=== PATIENT | female | born 1945 | race Caucasian/White ===

== ENCOUNTER 2020-07-07 03:58 | Observation (INO) | payer MEDICARE, OTHER ==
[~2020-07-07] VITALS: Ht 160 cm; Wt 78.3 kg
[2020-07-07] MEDS ORDERED: inSUlin (REGULAR) HUMAN 1 UNIT/0.01 ML (CHARGE PER UNIT) SC ONE ×2 (04:15→05:30)
[2020-07-07] MEDS ORDERED: LACTATED RINGERS 1,000 ML IV ONE (04:15)
--- NOTE | 2020-07-07 04:16 | ED General ---
General Chief Complaint: General Problems/Pain Stated Complaint: PROGRESSIVE WEAKNESS Nursing Triage Note: PT ARRIVES [facility]IA [facility] FROM HOME WITH C/O PROGRESSIVE WEAKNESS. PT REPORTS PROGRESSIVE WEAKNESS FOR 4-5 MONTHS WITH INCREASE IN SEVERITY WITHIN PAST 3-4 DAYS. PT REPORTS AFTER USING THE RESTROOM ON THIS DAY, SHE WAS UNABLE TO TAKE A STEP D/T HER KNEES GIVING OUT ET FELL TO HER KNEES. PT STATES, "MY CAN'T TAKE CARE OF ME." PT DENIES PAIN OR INJURY. A&OX4. Nursing Sepsis Screen: No Definite Risk Source of Information: Patient Exam Limitations: No Limitations History of Present Illness Date Seen by Provider: Jul 07, 2020 Time Seen by Provider: 03:56 Initial Comments Patient presents ER by EMS from home with chief complaint that for the past 3 or 4 days she has had progressively worsening weakness and states that she can no longer walk more than a few steps without falling to her knees. She says she has a little bit of achiness all over her body but no significant new pains. She does use hydrocodone routinely for pain half a tablet at nighttime on average. She has not had any hydrocodone since her fall. She denies needing any pain medicine at this time. She is not having a fever chills shortness of breath cough nausea vomiting diarrhea. She has diabetes but does not use i nsulin. She does not know what her blood sugars have been running. She does not know her A1c. She does not feel safe to go home because her can no longer take care of her. EMS reports she is alert and oriented x4 with good vital signs. She has hypertension and diabetes and follows with Dr. Pruitt at [facility]. She recently moved here from [place], [place] to be closer to her daughter. She has a history of stroke without significant debility. Allergies and Home Medications Allergies Coded Allergies: cephalexin (Verified Allergy, Unknown, 07/07/20) doxycycline (Verified Allergy, Unknown, 07/07/20) levofloxacin (Verified Allergy, Unknown, 07/07/20) Patient Home Medication List Home Medication List Reviewed: Yes Review of Systems Review of Systems Constitutional: No chills, No diaphoresis EENTM: No ear discharge, No ear pain Respiratory: No cough, No short of breath Cardiovascular: No chest pain, No palpitations Gastrointestinal: No abdominal pain, No constipation, No nausea Genitourinary: No discharge, No dysuria Musculoskeletal: see HPI; No back pain, No joint pain Psychiatric/Neurological: Denies Anxiety, Denies Depressed All Other Systems Reviewed Negative Unless Noted: Yes Past Xmdqqbq-Alyeyg-Ccapjb Hx Patient Social History Alcohol Use: Denies Use Smoking Status: Never a Smoker 2nd Hand Smoke Exposure: No Recent Infectious Disease Expo: No Recent Hopitalizations: No Seasonal Allergies Seasonal Allergies: No Past Medical History Surgeries: Yes (KNEE, ) Hysterectomy, Orthopedic Respiratory: Yes Sleep Apnea Currently Using CPAP: No Currently Using BIPAP: Yes Cardiac: Yes Hypertension Neurological: Yes (STROKE 2006) 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 oz. kg; 31.00 BMI Method: General Appearance: Chronically ill, Mild Distress Eyes: Bilateral Eye Normal Inspection, Bilateral Eye PERRL, Bilateral Eye EOMI HEENT: PERRL/EOMI, TMs Normal (Negative for marmolejo sign or hemotympanum), Normal ENT Inspection (Negative for raccoon eyes or traumatic head injury); No Pharynx Normal (Dry oral mucosa with chapped lips), No Moist Mucous Membranes Neck: Full Range of Motion, Normal Inspection, Non Tender, Supple Respiratory: Lungs Clear, Normal Breath Sounds, No Accessory Muscle Use, No Respiratory Distress Cardiovascular: Regular Rate, Rhythm, No Gallop, Normal Peripheral Pulses Gastrointestinal: Normal Bowel Sounds, Non Tender, Soft Extremity: Normal Capillary Refill, Normal Range of Motion, Non Tender (Bilateral knees nontender with full range of motion and no ecchymoses abrasion or swelling), Pedal Edema (1+ pitting edema bilateral lower extremity) Neurologic/Psychiatric: Alert, Oriented x3, store manager II-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 Norm as Tested Progress/Results/Core Measures Suspected Sepsis Recent Fever Within 48 Hours: No Infection Criteria Present: Suspected New Infection New/Unexplained Altered Menta: No Sepsis Screen: No Definite Risk SIRS Temperature: Pulse: 60 Respiratory Rate: 16 Laboratory Tests 07/07/20 04:05: White Blood Count 8.2 Blood Pressure 117 /79 Mean: 92 Laboratory Tests 07/07/20 04:05: Creatinine 2.42H, Platelet Count 287, Total Bilirubin 0.5 Results/Orders Lab Results Laboratory Tests Test 07/07/20 04:05 07/07/20 04:07 07/07/20 05:04 07/07/20 05:40 Range/Units White Blood Count 8.2 4.3-11.0 10^3/uL Red Blood Count 3.43 L 3.80-5.11 10^6/uL Hemoglobin 9.4 L 11.5-16.0 g/dL Hematocrit 30 L 35-52 % Mean Corpuscular Volume 88 80-99 fL Mean Corpuscular Hemoglobin 27 25-34 pg Mean Corpuscular Hemoglobin Concent 31 L 32-36 g/dL Red Cell Distribution Width 15.7 H 10.0-14.5 % Platelet Count 287 130-400 10^3/uL Mean Platelet Volume 10.9 9.0-12.2 fL Immature Granulocyte % (Auto) 0 % Neutrophils (%) (Auto) 74 42-75 % Lymphocytes (%) (Auto) 15 12-44 % Monocytes (%) (Auto) 9 0-12 % Eosinophils (%) (Auto) 2 0-10 % Basophils (%) (Auto) 1 0-10 % Neutrophils # (Auto) 6.1 1.8-7.8 10^3/uL Lymphocytes # (Auto) 1.2 1.0-4.0 10^3/uL Monocytes # (Auto) 0.7 0.0-1.0 10^3/uL Eosinophils # (Auto) 0.2 0.0-0.3 10^3/uL Basophils # (Auto) 0.0 0.0-0.1 10^3/uL Immature Granulocyte # (Auto) 0.0 0.0-0.1 10^3/uL Sodium Level 131 L 135-145 MMOL/L Potassium Level 3.7 3.6-5.0 MMOL/L Chloride Level 79 L 98-107 MMOL/L Carbon Dioxide Level 35 H 21-32 MMOL/L Anion Gap 17 H 5-14 MMOL/L Blood Urea Nitrogen 36 H 7-18 MG/DL Creatinine 2.42 H 0.60-1.30 MG/DL Estimat Glomerular Filtration Rate 20 BUN/Creatinine Ratio 15 Glucose Level 369 H 70-105 MG/DL Calcium Level 11.1 H 8.5-10.1 MG/DL Corrected Calcium 11.3 H 8.5-10.1 MG/DL Total Bilirubin 0.5 0.1-1.0 MG/DL Aspartate Amino Transf (AST/SGOT) 16 5-34 U/L Alanine Aminotransferase (ALT/SGPT) 11 0-55 U/L Alkaline Phosphatase 107 40-136 U/L C-Reactive Protein High Sensitivity 1.04 H 0.00-0.50 MG/DL B-Type Natriuretic Peptide 49.9 <100.0 PG/ML Total Protein 7.1 6.4-8.2 GM/DL Albumin 3.7 3.2-4.5 GM/DL Glucometer 339 H 338 H 70-110 MG/DL Urine Color YELLOW Urine Clarity CLEAR Urine pH 7.5 5-9 Urine Specific [place] 1.010 L 1.016-1.022 Urine Protein NEGATIVE NEGATIVE Urine Glucose (UA) TRACE H NEGATIVE Urine Ketones NEGATIVE NEGATIVE Urine Nitrite POSITIVE H NEGATIVE Urine Bilirubin NEGATIVE NEGATIVE Urine Urobilinogen 0.2 < = 1.0 MG/DL Urine Leukocyte Esterase 3+ H NEGATIVE Urine RBC (Auto) TRACE-I NEGATIVE Urine RBC 2-5 H /HPF Urine WBC TNTC H /HPF Urine Squamous Epithelial Cells 2-5 /HPF Urine Crystals NONE /LPF Urine Bacteria LARGE H /HPF Urine Casts NONE /LPF Urine Mucus NEGATIVE /LPF Urine Culture Indicated YES My Orders Orders - FLORENTINO CHEN Ed Iv/Invasive Line Start (07/07/20 04:05) Lactated Ringers (Lr 1000 Ml Iv Solution (07/07/20 04:15) Accucheck Stat ONCE (07/07/20 04:05) Cbc With Automated Diff (07/07/20 04:05) Comprehensive Metabolic Panel (07/07/20 04:05) Hs C Reactive Protein (07/07/20 04:05) Ua Culture If Indicated (07/07/20 04:05) Insulin (Regular) Human (Novolin R (Per (07/07/20 04:15) Chest 1 View, Ap/Pa Only (07/07/20 04:05) BNP (07/07/20 04:17) General/Regular (07/07/20 Breakfast) Accucheck Stat ONCE (07/07/20 04:58) Ed Iv/Invasive Line Start (07/07/20 05:00) Ns Iv 1000 Ml (Sodium Chloride 0.9%) (07/07/20 05:00) Insulin (Regular) Human (Novolin R (Per (07/07/20 05:30) Straight Cath For Spec.-Adult (07/07/20 05:30) Urine Culture (07/07/20 05:40) Medications Given in ED Current Medications Medications Dose Ordered Sig/Chad Route Start Time Stop Time Status Last Admin Dose Admin Insulin Human Regular 7 unit ONCE ONCE SC 07/07/20 04:15 07/07/20 04:16 DC 07/07/20 04:14 7 UNIT Insulin Human Regular 10 unit ONCE ONCE SC 07/07/20 05:30 07/07/20 05:32 DC 07/07/20 05:36 10 UNIT Lactated Ringer's 1,000 ml @ 0 mls/hr Q0M ONCE IV 07/07/20 04:15 07/07/20 04:16 DC 07/07/20 04:14 999 MLS/HR Vital Signs/I&O 07/07/20 04:00 Temp 35.0 Pulse 60 Resp 16 B/P (MAP) 117/79 (92) Pulse Ox 96 O2 Delivery Room Air Capillary Refill : Less Than 3 Seconds Blood Pressure Mean: 92 Point of Care Testing Finger Stick Blood Glucose: 339 Blood Glucose Action Taken: PROVIDER NOTIFIED. Progress Note : Time: 04:15 Progress Note Patient appears to be quite dry. She denies any new medications being started. We are going to give her a liter of lactated Ringer's. Her blood sugar is 339 which would possibly explain her dehydration and could contribute to her weakness and falls. She is too unstable at this time to attempt orthostatic vital signs. We will get a chest x-ray and some labs. Urinalysis and will give her 7 units of regular insulin subcutaneous and recheck her blood sugar shortly. Diagnostic Imaging Diagonstic Imaging: Xray Plain Films/CT/US/NM/MRI: chest Comments No acute cardiopulmonary process on a 1 view chest x-ray Reviewed: Reviewed by Me Departure Communication (Admissions) Time/Spoke to Admitting Phy: 06:00 Discussed the case with Dr. Vizcaino and she agrees to observe the patient for physical debility, hyperglycemia, acute kidney injury, dehydration. IV fluids, insulin therapy and physical therapy/occupational therapy eval and treat. Impression Primary Impression: Dehydration Additional Impressions: Physical debility Hyperglycemia due to type 2 diabetes mellitus Qualified Codes: E11.65 - Type 2 diabetes mellitus with hyperglycemia Disposition: ADMITTED INPATIENT Condition: Stable Admissions Decision to Admit Reason: Admit from ER (General) Decision to Admit/Date: Jul 07, 2020 Time/Decision to Admit Time: 05:45 Departure-Patient Inst. Referrals: NO,LOCAL PHYSICIAN (PCP/Family) Primary Care Physician FLORENTINO CHEN Jul 07, 2020 04:16
[2020-07-07 04:18] LABS: BASOPHILS % (AUTO) 1 % (0-10); EOSINOPHILS # (AUTO) 0.2 10^3/uL (0.0-0.3); EOSINOPHILS % (AUTO) 2 % (0-10); HEMATOCRIT 30 % (35-52); HEMOGLOBIN 9.4 g/dL (11.5-16.0); LYMPHOCYTES # (AUTO) 1.2 10^3/uL (1.0-4.0); LYMPHOCYTES % (AUTO) 15 % (12-44); MEAN CORPUSCULAR HEMOGLOBIN 27 pg (25-34); MEAN CORPUSCULAR HGB CONC 31 g/dL (32-36); MEAN CORPUSCULAR VOLUME 88 fL (80-99); MEAN PLATELET VOLUME 10.9 fL (9.0-12.2); MONOCYTES # (AUTO) 0.7 10^3/uL (0.0-1.0); MONOCYTES % (AUTO) 9 % (0-12); NEUTROPHILS # (AUTO) 6.1 10^3/uL (1.8-7.8); NEUTROPHILS % (AUTO) 74 % (42-75); PLATELET COUNT 287 10^3/uL (130-400); WHITE BLOOD COUNT 8.2 10^3/uL (4.3-11.0)
[2020-07-07 04:30] LABS: ALBUMIN 3.7 GM/DL (3.2-4.5); POTASSIUM 3.7 MMOL/L (3.6-5.0)
[2020-07-07 04:31] LABS: CALCIUM 11.1 MG/DL (8.5-10.1)
[2020-07-07 04:32] LABS: TOTAL PROTEIN 7.1 GM/DL (6.4-8.2)
[2020-07-07 04:34] LABS: BILIRUBIN,TOTAL 0.5 MG/DL (0.1-1.0)
[2020-07-07 04:36] LABS: CREATININE SERUM 2.42 MG/DL (0.60-1.30)
[2020-07-07] MEDS ORDERED: NS IV 1000 ML 1,000 ML IV SCH (05:00)
[2020-07-07 05:51] LABS: BILIRUBIN,URINE NEGATIVE (NEGATIVE); CLARITY,URINE CLEAR; COLOR,URINE YELLOW; GLUCOSE, URINE (UA) TRACE (NEGATIVE); KETONES,URINE NEGATIVE (NEGATIVE); LEUKOCYTE ESTERASE ,URINE 3+ (NEGATIVE); NITRITE,URINE POSITIVE (NEGATIVE); PH,URINE 7.5 (5-9); PROTEIN,URINE NEGATIVE (NEGATIVE)
[2020-07-07 06:02] LABS: BACTERIA,URINE LARGE /HPF; WBC,URINE TNTC /HPF
[2020-07-07] MEDS ORDERED: PIPERACILLIN SODIUM/TAZOBACTAM 4.5 GM in NS (IVPB) 100 ML IV ONE (06:15)
--- NOTE | 2020-07-07 06:52 | Diagnostic Imaging Report ---
INDICATION: Weakness. FINDINGS: Portable chest. Lungs are well-aerated and clear. Heart is not enlarged. No pulmonary edema or hilar adenopathy. No pneumothorax or pleural effusion. No bony abnormalities. IMPRESSION: Normal chest. Dictated by: Dictated on workstation # [id number]
[2020-07-07 08:45] VITALS: BP 110/67
[2020-07-07] MEDS ORDERED: ACETAMINOPHEN 325 MG TABLET PO PRN (09:00)
[2020-07-07] MEDS ORDERED: ONDANSETRON 4 MG/2 ML (SDV) Z0FRAN IV PRN (09:00)
[2020-07-07] MEDS ORDERED: ANTACID SUSP 30 ML UDC (MYLANTA) PO PRN (09:00)
[2020-07-07] MEDS: NS IV 1000 ML 1,000 ML IV SCH ×3 (10:18→21:03)
--- NOTE | 2020-07-07 10:22 | Physical Therapy Evaluation ---
PT Evaluation-General Medical Diagnosis Admission Date Jul 07, 2020 at 07:53 Medical Diagnosis: progressive weakness Onset Date: Jul 07, 2020 Therapy Diagnosis Therapy Diagnosis: impaired mobility, strength, endurance Precautions Precautions/Isolations: Fall Prevention, Standard Precautions Weight Bear Status Right Lower Extremity: Right Weight Bearing/Tolerated Left Lower Extremity: Left Weight Bearing/Tolerated Referral Physician: Mariely Vizcaino MD Reason for Referral: Evaluation/Treatment Medical History Additional Medical History Past Medical History Surgeries: Yes (KNEE, ) Hysterectomy, Orthopedic Respiratory: Yes Sleep Apnea Currently Using CPAP: No Currently Using BIPAP: Yes Cardiac: Yes Hypertension Neurological: Yes (STROKE 2006) Neuropathy, Stroke 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 Prior Prior Level of Function SCALE: Activities may be completed with or without assistive devices. 6-Jzdwumrcwc-kwdnkli completes the activity by him/herself with no assistance from a helper. 5-Set-up or Clean-up Assistance-helper sets up or cleans up; patient completes activity. Winside assists only prior to or following the activity. 4-Supervision or Touching Assistance-helper provides verbal cues and/or touching/steadying and/or contact guard assistance as patient completes activity. Assistance may be provided throughout the activity or intermittently. 3-Partial/Moderate Assistance-helper does LESS THAN HALF the effort. Winside lifts, holds or supports trunk or limbs, but provides less than half the effort. 2-Substantial/Maximal Assistance-helper does MORE THAN HALF the effort. Winside lifts or holds trunk or limbs and provides more than half the effort. 7-Jdvkjwexx-ovbkkd does ALL the effort. Patient does none of the effort to complete the activity. Or, the assistance of 2 or more helpers is required for the patient to complete the activity. If activity was not attempted, code reason: 7-Patient Refused. 9-Not Applicable-not attempted and the patient did not perform the activity before the current illness, exacerbation or injury. 10-Not Attempted due to Environmental Limitations-(lack of equipment, weather restraints, etc.). 88-Not Attempted due to Medical Conditions or Safety Concerns. Bed Mobility: 6 Transfers (B,C,W/C): 6 Gait: 6 Stairs: 6 Indoor Mobility (Ambulation): Independent Stairs: Independent PT Evaluation-Current Subjective Patient in bed pre tx, agrees to PT, has no complaints of pain. Pt/Family Goals "to get stronger" Objective Patient Orientation: Person, Place, Situation ROM/Strength ROM Lower Extremities WNL Strength Lower Extremities LLE (hip flexion 3-/5, knee flexion 3+/5, knee extension 4/5, dorsiflexion 4/5), RLE (hip flexion 3-/5, knee flexion 3+/5, knee extension 4/5, dorsiflexion 4/5) Neuromuscular (Tone, Coordination, Reflexes) Patient has a little trouble with tracking but it doesn't seem limited to one side, intact peripheral vision, possibly some droop on the left side of her mouth but the rest of her face seems symmetrical. Sensory Hearing: Functional Sensation Right Lower Extremit: Impaired Sensation Left Lower Extremity: Impaired Transfers Roll Left to Right (QC): 6 Lying to Sitting/Side of Bed(Q: 6 Sit to Stand (QC): 3 Chair/Dqf-eq-Tcgah Xfer(QC): 4 Gait Does the Patient Walk?: Yes Mode of Locomotion: Walk Anticipated Mode of Locomotion: Walk Distance: 6' Gait Assistive Device: FWW Comments/Gait Description Patient needs min assist for sit to stand, she is able to ambulate about 6' to her recliner, patient states this distance is about the max she can go before her legs give out. Balance Sitting Static: Normal Sitting Dynamic: Normal Standing Static: Fair Standing Dynamic: Fair Treatment BLE exercise x20 (AP, LAQ) Assessment/Needs Patient has impaired mobility, strength, endurance. Patient in recliner post tx with nurse call, phone, tray, all needs met. Patient instructed to use nurse call if she has to get up or get back to bed and to not try to do it on her own. Patient had no knee buckling during ambulation but during exercises she says her muscles stop working a couple of times. 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 PT Chcf Goals Time Frame: Jul 14, 2020 Roll Left & Right (QC): 6 Sit to Lying (QC): 6 Lying-Sitting on Side/Bed(QC): 6 Sit to Stand (QC): 6 Chair/Tob-ty-Umpvs Xfer(QC): 6 Walk 10 feet (QC): 6 Walk 50ft with 2 Turns (QC): 4 PT Plan Problem List Problem List: Activity Tolerance, Functional Strength, Safety, Balance, Gait, Transfer, Bed Mobility, ROM Treatment/Plan Treatment Plan: Continue Plan of Care Treatment Plan: Bed Mobility, Education, Functional Activity Kobe, Functional Strength, Gait, Safety, Therapeutic Exercise, Transfers Treatment Duration: Jul 14, 2020 Frequency: 6 times per week Estimated Hrs Per Day: .25 hour per day Patient and/or Family Agrees t: Yes Safety Risks/Education Patient Education: Gait Training, Transfer Techniques, Correct Positioning, Safety Issues Teaching Recipient: Patient Teaching Methods: Demonstration, Discussion Response to Teaching: Reinforcement Needed Discharge Recommendations Plan Patient will perform bed mobility and transfer training, balance and endurance training, functional strengthening, stair training, gait training, and educ ation, to improve functional mobility and independence at home. Therapy Discharge Recommendati: Scheduled Assistance, Home & Family, Post Acute PT Time/GCodes Time In: 0950 Time Out: 1004 Total Billed Treatment Time: 14 Total Billed Treatment 1 visit TASHA DOLL PT Jul 07, 2020 10:22
--- NOTE | 2020-07-07 11:36 | History & Physical-Hospitalist ---
SANYAALEJANDRA MED STUDENT 07/07/20 1136: History of Present Illness HPI/Chief Complaint CC Weakness and falling This is a 74 year old patient with a history of previous stroke, HTN, and DM that presented yesterday with progressive weakness and multiple falls. She states that she cannot walk very far before her legs give out on her. She has fallen multiple times and it is to the point where her and son cannot help her get up if she has a fall. She is a Diabetec, states that she takes her medications daily, does not check A1c. She follows Dr Pruitt for HTN and Diabeetes. She does not complain of any pain with urination, but does complain o f some frequency. Urine shows nitrites, wbcs, and is positive for bacteria. She has received piperacilin-tazobactam. She complains of a headache and epigastric pain this morning. Denies chest pain and SOB. LBM yesterday. She also has a history of breast cancer and sees an oncologist. Source: patient Exam Limitations: no limitations Date Seen 07/07/20 Time Seen by a Provider: 09:30 Attending Physician Jesús Vizcaino MD PCP Willow Pruitt MD Referring Physician Date of Admission Jul 07, 2020 at 07:53 Home Medications & Allergies Home Medications Reviewed patient Home Medication Reconciliation performed by pharmacy medication reconciliations sleep technician and/or nursing. Patients Allergies have been reviewed. Allergies Allergies Coded Allergies cephalexin (Verified Allergy, Unknown, 07/07/20) doxycycline (Verified Allergy, Unknown, 07/07/20) levofloxacin (Verified Allergy, Unknown, 07/07/20) Past Rzumcgd-Lfjwvd-Mkylug Hx Past Med/Social Hx: Reviewed Nursing Past Med/Soc Hx Patient Social History Alcohol Use: Denies Use Recreational Drug Use: No Smoking Status: Never a Smoker 2nd Hand Smoke Exposure: No Recent Foreign Travel: No Contact w/other who traveled: No Recent Hopitalizations: No Recent Infectious Disease Expo: No Seasonal Allergies Seasonal Allergies: No Past Medical History Surgeries: Hysterectomy, Orthopedic Currently Using CPAP: No Currently Using BIPAP: Yes Cardiac: Hypertension Neurological: Neuropathy, Stroke Hysterectomy Endocrine: Diabetes, Non-Insulin dep Are Your Blood Sugars Over 250: Yes Review of Systems Constitutional: weakness Respiratory: no symptoms reported Cardiovascular: no symptoms reported Gastrointestinal: see HPI Genitourinary: frequency : No Musculoskeletal: no symptoms reported Skin: no symptoms reported Psychiatric/Neurological: No Symptoms Reported Physical Exam Physical Exam Vital Signs Vital Signs - First Documented 07/07/20 04:00 Temp 35.0 Pulse 60 Resp 16 B/P (MAP) 117/79 (92) Pulse Ox 96 O2 Delivery Room Air Capillary Refill : Less Than 3 Seconds Height, Weight, BMI Height: '" Weight: lbs. oz. kg; 31.00 BMI Method: General Appearance: No Apparent Distress, WD/WN Neck: Full Range of Motion, Normal Inspection, Non Tender Respiratory: Chest Non Tender, Lungs Clear, Normal Breath Sounds, No Accessory Muscle Use, No Respiratory Distress Cardiovascular: Regular Rate, Rhythm, No Edema, No Gallop, No JVD, No Murmur, Normal Peripheral Pulses Gastrointestinal: Normal Bowel Sounds, No Organomegaly, No Pulsatile Mass, Soft, Tenderness (Slight tenderness in epigatric region) Rectal: Deferred Back: Normal Inspection Extremity: Normal Capillary Refill, Normal Inspection, Normal Range of Motion, Non Tender, No Calf Tenderness, No Pedal Edema Neurologic/Psychiatric: Alert, Oriented x3 Skin: Normal Color, Warm/Dry Results Results/Procedures Labs Laboratory Tests 07/07/20 04:05 Patient resulted labs reviewed. Assessment/Plan Admission Diagnosis Falls Admission Status: Inpatient Order (span 2 midnights) Reason for Inpatient Admission: UTI, Hyperglycemia Assessment and Plan 74 year old female presents with weakness, falls. She is hyperglycemic and appears to have current UTI. Hyperglycemia -Hyperglycemia likely due to current infection -ABX for infection, ensure patient stays hydrated -Pt compliant with DM medications, no need to adjust at this time KRISTIN -KRISTIN likely due to pt dehydration and UTI -Ensure patient stays hydrated -Continue to monitor kidney function with morning labs, urine output -If kidney function does not improve after uti, consider US UTI -Continue ABX Weakness/Falls -Likely result of hyperglycemia, UTI, Dehydration -Start Pt on PT, improve strength -Ensure patient is strong enough to walk without assistance at discharge time -Ensure that patient will have help at home if needed . Diagnosis/Problems Diagnosis/Problems (1) UTI (urinary tract infection) (2) Dehydration Status: Acute (3) Physical debility Status: Acute (4) Hyperglycemia due to type 2 diabetes mellitus Status: Acute Qualifiers: Diabetes mellitus terminal gauger insulin use: without detention use Qualified Codes: E11.65 - Type 2 diabetes mellitus with hyperglycemia Supervisory-Addendum Brief Verification & Attestation Participated in pt care: history, physical Personally performed: exam Care discussed with: other Procedures: n/a n/a JESÚS VIZCAINO MD 07/07/20 1543: History of Present Illness Source: patient Exam Limitations: no limitations Past Ymgypyv-Mxrmez-Nrfshc Hx Patient Social History Living Status: Lives at home with Review of Systems Constitutional: No fever; malaise, weakness EENTM: no symptoms reported; No mouth swelling, No nose congestion, No throat swelling Respiratory: no symptoms reported; No cough, No dyspnea on exertion Cardiovascular: no symptoms reported; No chest pain, No edema Gastrointestinal: No abdominal pain, No constipation, No diarrhea; loss of appetite; No nausea, No vomiting Genitourinary: No dysuria; frequency; No hematuria : No Musculoskeletal: no symptoms reported; No back pain, No joint pain, No muscle pain Skin: no symptoms reported; No lesions, No rash Psychiatric/Neurological: No Symptoms Reported Physical Exam Physical Exam General Appearance: No Apparent Distress, WD/WN Neck: Full Range of Motion, Non Tender Respiratory: Chest Non Tender, Lungs Clear, Normal Breath Sounds, No Accessory Muscle Use, No Respiratory Distress Cardiovascular: Regular Rate, Rhythm, No Edema, No Murmur Gastrointestinal: Normal Bowel Sounds, Non Tender, Soft Back: No CVA Tenderness, No Vertebral Tenderness Extremity: Normal Capillary Refill, Normal Range of Motion, Non Tender, No Calf Tenderness Neurologic/Psychiatric: Alert, Oriented x3 Skin: Normal Color, Warm/Dry Lymphatic: No Adenopathy Assessment/Plan Admission Diagnosis Admission Status: Inpatient Order (span 2 midnights) Reason for Inpatient Admission: Requiring IV antibiotics and PT due to falling Supervisory-Addendum Brief Verification & Attestation Participated in pt care: history, physical Personally performed: exam, history Care discussed with: Medical Student Procedures: n/a Verification and Attestation of Medical Student E/M Service A medical student performed and documented this service in my presence. I reviewed and verified all information documented by the medical student and made modifications to such information, when appropriate. I personally performed the physical exam and medical decision making. Jesús Vizcaino, Jul 07, 2020,16:05 74 yo F that presented after several falls at home and found to have UTI 07/07/20 UTI: Continue Rocephin, IVFs, encourage oral hydration Acute Renal Failure: Improving with IVFs, continue to monitor daily BMPs Hyperglycemia: Continue home meds, A1c pending Falls: PT/OT Debility DVT Px: ALEJANDRA [place] MED STUDENT Jul 07, 2020 11:36 JESÚS VIZCAINO MD Jul 07, 2020 15:43
--- NOTE | 2020-07-07 12:01 | Occupational Therapy Eval ---
OT Evaluation-General/PLF Medical Diagnosis Admission Date Jul 07, 2020 at 07:53 Medical Diagnosis: progressive weakness Onset Date: Jul 07, 2020 Therapy Diagnosis Therapy Diagnosis: Decreased ADL status Precautions Precautions/Isolations: Fall Prevention, Standard Precautions Weight Bear Status Weight Bearing Restriction: Full Weight Bearing Referral Physician: Mariely Vizcaino MD Referral Reason: Activity Tolerance, Self Care, Evaluation/Treatment, Strengthening/ROM Medical History Pertinent Medical History: CVA, DM Additional Medical History DM, hysterectomy, stroke. Current History Pt had 3-4 days of progressing weakness. Fall to knees and not able to assist to stance. Reviewed History: Yes Social History Home: Multilevel Current Living Status: Spouse Entry Into Home: Stairs Without Railing Steps Into Home: 5 Steps Inside Home: 19 ADL-Prior Level of Function SCALE: Activities may be completed with or without assistive devices. 6-Nsrxxvzbkd-vqtetip completes the activity by him/herself with no assistance from a helper. 5-Set-up or Clean-up Assistance-helper sets up or cleans up; patient completes activity. [place] assists only prior to or following the activity. 4-Supervision or Touching Assistance-helper provides verbal cues and/or touching/steadying and/or contact guard assistance as patient completes activity. Assistance may be provided throughout the activity or intermittently. 3-Partial/Moderate Assistance-helper does LESS THAN HALF the effort. [place] lifts, holds or supports trunk or limbs, but provides less than half the effort. 2-Substantial/Maximal Assistance-helper does MORE THAN HALF the effort. [place] lifts or holds trunk or limbs and provides more than half the effort. 6-Vqzyparai-fkoach does ALL the effort. Patient does none of the effort to complete the activity. Or, the assistance of 2 or more helpers is required for the patient to complete the activity. If activity was not attempted, code reason: 7-Patient Refused. 9-Not Applicable-not attempted and the patient did not perform the activity before the current illness, exacerbation or injury. 10-Not Attempted due to Environmental Limitations-(lack of equipment, weather restraints, etc.). 88-Not Attempted due to Medical Conditions or Safety Concerns. ADL PLOF Comments Pt states she was IND without use of AD prior. Self Care: Independent Functional Cognition: Independent DME/Equipment: Grab Bars, Shower, Tall Toilet DME/Equipment Comments stands during shower, has gbs. 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 Pt agrees to tx. Pt states no pain, then in stance states minimal pain in knee. Pt pleasant. Mental Status/Objective Patient Orientation: Person, Place, Situation, Normal For Age Attachments: IV Current Glasses/Contacts: Yes Hearing Aids: No Dentures/Partials: Yes Hand Dominance: Right Upper Extremity ROM WFL BUE Upper Extremity Coordination WFL BUE (pt states shakiness at times, none noted upon opposition/ opening tasks) Upper Extremity Sensation WLF BUE per pt, though neuropathy BLE. Upper Extremity Strength WLF (4/5 bilaterally), slightly less health information director R<L ADL-Treatment Eating (QC): 6 Toileting Hygiene (QC): 4 Other Treatments Pt completes MMT/ ROM/ hx and evlauation in recliner. Pt desires bathroom. Sit to stand [id number] A with cues for hand positioning. Pt stands, ambulates with CGA to toilet. Cues for gbs (recommendations of gb next to tall toilet at home). Pt completes toileting SBA/ hygiene SBA. Ambulates back to recliner. Sits with control. Pt states cold, temperature adjusted/ blankets donned. Pt states brought all medications and she has not received any today, nursing notified of pt's requests. Pt educated on UE ther ex/ AROM while in recliner, pt agrees can complete with recommendations of 2-3x a day, 15-20 reps of AROM in 3 planes. All needs met, call light in reach. Educated on continued OT for strengthening. Education OT Patient Education: Correct positioning, Exercise program, Home exercise program, Purpose of tx/functional activities, Safety issues, Transfer techniques Teaching Recipient: Patient Teaching Methods: Demonstration, Discussion Response to Teaching: Verbalize Understanding, Reinforcement Needed OT Educational Technician Goals Shelter Goals Time Frame: Jul 14, 2020 Eating (QC): 6 Oral Hygiene (QC): 6 Toileting Hygiene (QC): 6 Shower/Bathe Self (QC): 4 Upper Body Dressing (QC): 6 Lower Body Dressing (QC): 6 On/Off Footwear (QC): 6 Additional Goals: 1-Demonstrate ADL Tasks, 2-Verbalize Understanding, 3-ImproveStrength/Kobe 1=Demonstrate adherence to instructed precautions during ADL tasks. 2=Patient will verbalize/demonstrate understanding of assistive devices/modifications for ADL. 3=Patient will improve strength/tolerance for activity to enable patient to perform ADL's. OT Education/Plan Problem List/Assessment Assessment: Decreased Activ Tolerance, Decreased UE Strength, Dependent Transfers, Impaired Funct Balance, Impaired I ADL's, Impaired Self-Care Skills Discharge Recommendations Plan/Recommendations: Continue POC Therapy Discharge Recommendati: Home & Family, Post Acute OT Equpiment Recommendations-D/C: Rails on Toilet Treatment Plan/Plan of Care Treatment,Training & Education: Yes Patient would benefit from OT for education, treatment and training to promote independence in ADL's, mobility, safety and/or upper extremity function for ADL's. Plan of Care: ADL Retraining, Caregiver Training, Concurrent Therapy, Functional Mobility, UE Funct Exercise/Act, UE Neuromus Re-Ed/Coord Treatment Duration: Jul 14, 2020 Frequency: 5 times per week Estimated Hrs Per Day: .25 hour per day Agreement: Yes Rehab Potential: Fair Time/GCodes Start Time: 11:31 Stop Time: 11:54 Total Time Billed (hr/min): 23 Billed Treatment Time 1, EVL (10), ADL (13)= 23 PRIMITIVO CHAPMAN OTR Jul 07, 2020 12:00
[2020-07-07] MEDS: inSUlin ASPART (NovoLOG) 1 UNIT/0.01 ML (CHARGE PER UNIT) SC SCH ×3 (13:10→21:03)
[2020-07-07] MEDS ORDERED: METR-143 PO (14:02)
[2020-07-07] MEDS ORDERED: OMEP20CA18 PO (14:02)
[2020-07-07] MEDS ORDERED: LEVO75TA97 PO (14:02)
[2020-07-07] MEDS ORDERED: METO2.5T PO (14:02)
[2020-07-07] MEDS ORDERED: LETR2.5T6 PO (14:02)
[2020-07-07] MEDS ORDERED: ATOR40TA70 PO (14:02)
[2020-07-07] MEDS ORDERED: METO100T12 PO (14:02)
[2020-07-07] MEDS ORDERED: METF-399 PO (14:02)
[2020-07-07] MEDS ORDERED: VENL75CA93 PO (14:02)
[2020-07-07] MEDS ORDERED: FLUT16SP22 NSEACH (14:02)
[2020-07-07] MEDS ORDERED: CETI10TA49 PO (14:02)
[2020-07-07] MEDS ORDERED: ACHD5005 PO (14:02)
[2020-07-07] MEDS ORDERED: BUME1TAB8 PO (14:02)
[2020-07-07] MEDS ORDERED: GABA300C PO ×2 (14:02)
[2020-07-07] MEDS ORDERED: COLE1TAB PO (14:02)
[2020-07-07] MEDS ORDERED: SUCR1TAB PO (14:02)
[2020-07-07] MEDS ORDERED: SAXA5TAB PO (14:02)
[2020-07-07] MEDS ORDERED: GLIM4TAB5 PO (14:02)
--- NOTE | 2020-07-07 14:04 | NUR ---
SPOKE WITH THE PT (SHE HAS SOME OF HER MEDS W/ HER), AND WENT THRU THE EXT MED HISTORY TO COMPLETE THE MED REC COLESTIPOL: DIRECTIONS SHOW 1 TAB BID HOWEVER PT SAYS SHE ONLY TAKES IT ONCE DAILY BUMETANIDE 1MG: DIRECTIONS SHOW 1 TAB BID BUT PT SAYS SHE TAKES 1 TAB DAILY METFORMIN 1000MG- DIRECTIONS SHOW 1 TAB BID BUT PT SAYS SHE TAKES 1 TAB DAILY ALL THE OTHER MEDICATIONS THE PT TAKES HOW THE DIRECTIONS ARE WRITTEN THE PT IS ON THE FOLLOWING MEDICATIONS BUT SHE DOES NOT HAVE THE BOTTLES WITH HER: COLESTIPOL FLONASE VENLAFAXINE HYDROCODONE/APAP ATORVASTATIN OTC MEDS: ZYRTEC IBUPROFEN 200MG IS IN HERE MED BAG BUT PT SAYS SHE DOES NOT TAKE
[2020-07-07] MEDS ORDERED: NON-FORMULARY MEDICATION 1 EA EA (Metformin HCl 1,000 MG) PO SCH (15:15)
[2020-07-07 15:54] VITALS: BP 144/64
[2020-07-07 19:57] VITALS: BP 145/65
[2020-07-07] MEDS: HYDROcodone/APAP 5 MG/325 MG (LORTAB) TAB PO PRN (21:02)
[2020-07-07] MEDS: GABAPENTIN 300 MG (NEURONTIN) CAP PO SCH (21:02)
[2020-07-07] MEDS: VENlafaxine XR 75 MG (EFFEXOR XR) CAP PO SCH (21:02)
[2020-07-07] MEDS: meTOprolol TARTRATE 50 MG (LOPRESSOR) TAB PO SCH (21:03)
[2020-07-08] VITALS: BP 125/56
[2020-07-08 04:00] VITALS: BP 115/56
[2020-07-08] MEDS: NS IV 1000 ML 1,000 ML IV SCH (04:47)
[2020-07-08 06:26] LABS: BASOPHILS % (AUTO) 1 % (0-10); EOSINOPHILS # (AUTO) 0.2 10^3/uL (0.0-0.3); EOSINOPHILS % (AUTO) 4 % (0-10); HEMATOCRIT 26 % (35-52); LYMPHOCYTES # (AUTO) 1.1 10^3/uL (1.0-4.0); LYMPHOCYTES % (AUTO) 20 % (12-44); MEAN CORPUSCULAR HEMOGLOBIN 28 pg (25-34); MEAN CORPUSCULAR HGB CONC 31 g/dL (32-36); MEAN CORPUSCULAR VOLUME 89 fL (80-99); MEAN PLATELET VOLUME 10.6 fL (9.0-12.2); MONOCYTES # (AUTO) 0.4 10^3/uL (0.0-1.0); MONOCYTES % (AUTO) 8 % (0-12); NEUTROPHILS # (AUTO) 3.6 10^3/uL (1.8-7.8); NEUTROPHILS % (AUTO) 67 % (42-75); PLATELET COUNT 185 10^3/uL (130-400); WHITE BLOOD COUNT 5.3 10^3/uL (4.3-11.0)
[2020-07-08 06:38] LABS: POTASSIUM 3.2 MMOL/L (3.6-5.0)
[2020-07-08 06:39] LABS: CALCIUM 8.4 MG/DL (8.5-10.1)
[2020-07-08 06:43] LABS: CREATININE SERUM 1.81 MG/DL (0.60-1.30)
[2020-07-08] MEDS: inSUlin ASPART (NovoLOG) 1 UNIT/0.01 ML (CHARGE PER UNIT) SC SCH ×4 (06:46→21:44)
[2020-07-08] MEDS: LEVOTHYROXINE 75 MCG (LEVOTHROID) TABLET PO SCH (06:46)
[2020-07-08 08:00] VITALS: BP 128/61
[2020-07-08] MEDS: GABAPENTIN 300 MG (NEURONTIN) CAP PO SCH ×2 (08:55→21:44)
[2020-07-08] MEDS: meTOprolol TARTRATE 50 MG (LOPRESSOR) TAB PO SCH ×2 (08:55→21:44)
[2020-07-08] MEDS: GLIMEPIRIDE 4 MG (AMARYL) TAB PO SCH (08:55)
[2020-07-08] MEDS: HYDROcodone/APAP 5 MG/325 MG (LORTAB) TAB PO PRN ×2 (09:10→20:15)
--- NOTE | 2020-07-08 09:56 | Physical Therapy Daily Note ---
PT Daily Note-Current Subjective Patient agrees to PT. No c/o at this time. Mental Status Patient Orientation: Normal For Age Attachments: IV Transfers SCALE: Activities may be completed with or without assistive devices. 6-Qnjmgkwlsj-vrtksja completes the activity by him/herself with no assistance from a helper. 5-Set-up or Clean-up Assistance-helper sets up or cleans up; patient completes activity. [place] assists only prior to or following the activity. 4-Supervision or Touching Assistance-helper provides verbal cues and/or touching/steadying and/or contact guard assistance as patient completes activity. Assistance may be provided throughout the activity or intermittently. 3-Partial/Moderate Assistance-helper does LESS THAN HALF the effort. [place] lifts, holds or supports trunk or limbs, but provides less than half the effort. 2-Substantial/Maximal Assistance-helper does MORE THAN HALF the effort. [place] lifts or holds trunk or limbs and provides more than half the effort. 8-Rskpsmzbm-gcidii does ALL the effort. Patient does none of the effort to complete the activity. Or, the assistance of 2 or more helpers is required for the patient to complete the activity. If activity was not attempted, code reason: 7-Patient Refused. 9-Not Applicable-not attempted and the patient did not perform the activity before the current illness, exacerbation or injury. 10-Not Attempted due to Environmental Limitations-(lack of equipment, weather restraints, etc.). 88-Not Attempted due to Medical Conditions or Safety Concerns. Lying to Sitting/Side of Bed(Q: 6 Sit to Stand (QC): 5 Chair/Dny-er-Uraaq Xfer(QC): 5 Toilet Transfer (QC): 5 Weight Bearing Right Lower Extremity: Right Weight Bearing/Tolerated Left Lower Extremity: Left Weight Bearing/Tolerated Gait Training Does the Patient Walk?: Yes Distance: 275' Walk 10 feet (QC): 4 Walk 50 ft with 2 Turns(QC): 4 Walk 150 ft (QC): 4 Gait Assistive Device: FWW SBA for safety only/no deviation/functional gait sequence Exercises Supine Ex: Ankle pumps, Quad Set, Heel Slides, Straight leg raise Supine Reps: 15 Seated Therapy Exercises: Long arc quads Seated Reps: 15 Assessment Patient much improved on this date. Patient is highly motivated with progress. PT Software Engineering Manager Goals Software Engineering Manager Goals PT Software Engineering Manager Goals Time Frame: Jul 14, 2020 Roll Left & Right (QC): 6 Sit to Lying (QC): 6 Lying-Sitting on Side/Bed(QC): 6 Sit to Stand (QC): 6 Chair/Lbx-mw-Pvuxn Xfer(QC): 6 Walk 10 feet (QC): 6 Walk 50ft with 2 Turns (QC): 4 PT Plan Treatment/Plan Treatment Plan: Continue Plan of Care Treatment Plan: Bed Mobility, Education, Functional Activity [place], Functional Strength, Gait, Safety, Therapeutic Exercise, Transfers Treatment Duration: Jul 14, 2020 Frequency: 6 times per week Estimated Hrs Per Day: .25 hour per day Patient and/or Family Agrees t: Yes Time/GCodes Time In: 905 Time Out: 928 Total Billed Treatment Time: 23 Total Billed Treatment 1 visit EX 15 min FA 8 min MARY RIBEIRO PT Jul 08, 2020 09:55
--- NOTE | 2020-07-08 10:41 | NUR ---
CM/SS visited with the patient for social service consult. Updated phone number [phone] Plan: The patient will discharge to home 07/08/20 tomorrow with home health. Home Health: The patient was provided with a choice list. She chose [facility]. CM/SS contacted [facility] and made a referral. DME: The patient reports that she uses [facility]. She wears a Bipap at night time. The patient reports that she has had a sleep study done around 5 years ago and she received her Bipap at that time. It was covered by Medicare. CM/SS contacted the agency and spoke with [facility]. The patient is wanting a new one. [facility] reports she will need a script from the primary physician. Home: The patient lives at home with her . They are both independent; however, the patient has been having frequent falls. She reports her cannot pick her up from the ground anymore. She does not use a walker. The patient states she has 19 stairs leading upstarts. She goes up and down the stairs x1 a day with assistance from her . The patient has a erlx-ez-xzbzad in the upstairs bathroom and down stairs. Supports: The patient reports having a large support system with 5 children (1 living locally), catholic community, and significant other. CM/SS will continue to follow.
--- NOTE | 2020-07-08 11:22 | Progress Note - Hospitalist ---
SANYAALEJANDRA MED STUDENT 07/08/20 1122: Subjective HPI/CC On Admission Date Seen by Provider: Jul 08, 2020 Time Seen by Provider: 08:30 Subjective/Events-last exam Patient states that she is doing alright this morning. She is complaining of some pain in her chest with deep breaths, which has been going on since yesterday. She has been started on ABX for her UTI. She also received OT/PT, Therapist states that she did very well on the walk. Patient stated that therapy made her sore. She is concerned about going home, states that she does not know if she will be strong enough. LBM 2 days ago. She used her CPAP to sleep last night, states she slept well. She has no complaints of fever, chest pain, SOB, or stomach pains. Objective Exam Vital Signs Vital Signs Date Time Temp Pulse Resp B/P (MAP) Pulse Ox O2 Delivery O2 Flow Rate FiO2 07/08/20 09:00 92 Room Air 07/08/20 08:00 36.3 61 16 128/61 (83) Capillary Refill : Less Than 3 SecondsLess Than 3 Seconds General Appearance: No Apparent Distress, WD/WN Neck: Full Range of Motion, Non Tender Respiratory: Chest Non Tender, Lungs Clear, Normal Breath Sounds, No Accessory Muscle Use, No Respiratory Distress Cardiovascular: Regular Rate, Rhythm, No Edema, No Gallop, No JVD, No Murmur, Normal Peripheral Pulses Gastrointestinal: No Organomegaly, Non Tender, Soft Rectal: Deferred Back: No Vertebral Tenderness Extremity: Normal Range of Motion, Non Tender, No Calf Tenderness, No Pedal Edema Neurologic/Psychiatric: Alert, Oriented x3 Skin: Normal Color, Warm/Dry Lymphatic: No Adenopathy Results/Procedures Lab Laboratory Tests 07/08/20 06:19 Patient resulted labs reviewed. Assessment/Plan Assessment and Plan Assess & Plan/Chief Complaint 74 year old female presents with weakness, falls. She is hyperglycemic and appears to have current UTI. Hyperglycemia -Hyperglycemia likely due to current infection -ABX for infection, ensure patient stays hydrated -Pt compliant with DM medications, no need to adjust at this time KRISTIN --KRISTIN improving today, continue with fluids. -KRSITIN likely due to pt dehydration and UTI -Ensure patient stays hydrated -Continue to monitor kidney function with morning labs, urine output -If kidney function does not improve after uti, consider US UTI -Continue ABX Weakness/Falls -Likely result of hyperglycemia, UTI, Dehydration --PT/OT administered today, Pt did well -Ensure patient is strong enough to walk without assistance at discharge time -Ensure that patient will have help at home if needed . Hypokalemia -Slight hypokalemia today -Continue to monitor with labs -Replace K if levels fail to improve or get worse Diagnosis/Problems Diagnosis/Problems (1) UTI (urinary tract infection) (2) Dehydration Status: Acute (3) Physical debility Status: Acute (4) Hyperglycemia due to type 2 diabetes mellitus Status: Acute Qualifiers: Qualified Codes: E11.65 - Type 2 diabetes mellitus with hyperglycemia Supervisory-Addendum Brief Verification & Attestation Participated in pt care: history, physical Personally performed: exam Care discussed with: other Procedures: n/a n/a JESÚS VIZCAINO MD 07/08/201811: Supervisory-Addendum Brief Verification & Attestation Participated in pt care: history, physical Personally performed: exam, history Care discussed with: Medical Student Procedures: n/a Verification and Attestation of Medical Student E/M Service A medical student performed and documented this service in my presence. I reviewed and verified all information documented by the medical student and made modifications to such information, when appropriate. I personally performed the physical exam and medical decision making. Jesús Vizcaino, Jul 08, 2020,18:10 74 yo F that presented after several falls at home and found to have UTI UTI: Continue Rocephin, IVFs, encourage oral hydration - 07/08: Rocephin D3, will transition to PO antibiotics at dischage Acute Renal Failure: Improving with IVFs, continue to monitor daily BMPs - 07/08: Improving, Push PO fluids Hyperglycemia: Continue home meds, A1c pending - 07/08: A1c 10.5, Patient with DM: New Dx Falls: PT/OT Debility DVT Px: Lovenox Dispo: Plan for d/c tomorrow ALEJANDRA SEGUNDO MED STUDENT Jul 08, 2020 11:22 JESÚS VIZCAINO MD Jul 08, 2020 18:12
[2020-07-08 12:00] VITALS: BP 177/79
[2020-07-08] MEDS ORDERED: LORATADINE (CLARITIN) 10 MG TAB PO SCH (12:00)
--- NOTE | 2020-07-08 13:07 | NUR ---
"RD ASSESSMENT PMHx: stroke; DM; HTN; PT INTERACTION: Pt was awake and pleasant during nutrition consult for MST score. Pt states current appetite is good. Note avg PO intake 100% x2meal, per chart review. Pt states following a regular diet at home, and has some issues with swallowing, attributing to recent issues with her esophagus. Pt states some recent issues with diarrhea, and that her last BM was 07/06. Pt states current DM management is not good. Note recent HbA1c of 10.5 (07/08/20) per chart review. Pt states recent wt loss, but was unsure of amount/timeframe. Note unable to determine recent wt hx, per chart review. Upon visual assessment, pt appears to be adequately nourished with no visible signs of muscle/fat wasting and a BMI of 30.9 (Obese class I for age). Given wt hx, PO intake, and visual assessment, pt does not meet criteria for malnutrition per ASPEN guidelines. Est. kcal needs: 5152-6001 kcal | 15-20 kcal/kg Est. Pro needs: 63-79 g Pro | 0.8-1.0 g Pro/kg PES STATEMENT: Given current PO intake, no nutrition diagnosis at this time (NO-1.1). INTERVENTION: Continue with current diet order of CHO 60g/m 3snack diet. Offered diet education on DM management, but pt declined at this time. May attempt to offer again prior to discharge. Will continue to follow and reassess as pt needs, intake, and status change. Anna WILSON, MS RD [phone] cell"
--- NOTE | 2020-07-08 15:45 | Occupational Ther Daily Note ---
OT Current Status-Daily Note Subjective Pt. reports that her left LE is sore. OT elevates this for her after session. Pt. has had pain medication. Mental Status/Objective Patient Orientation: Person, Place, Time, Situation ADL-Treatment Therapy Code Descriptions/Definitions Functional [place] Measure: 0=Not Assessed/NA 4=Minimal Assistance 1=Total Assistance 5=Supervision or Setup 2=Maximal Assistance 6=Modified [place] 3=Moderate Assistance 7=Complete IndependenceSCALE: Activities may be completed with or without assistive devices. 6-Aoowullurw-yvrcseq completes the activity by him/herself with no assistance from a helper. 5-Set-up or Clean-up Assistance-helper sets up or cleans up; patient completes activity. [place] assists only prior to or following the activity. 4-Supervision or Touching Assistance-helper provides verbal cues and/or touching/steadying and/or contact guard assistance as patient completes activity. Assistance may be provided throughout the activity or intermittently. 3-Partial/Moderate Assistance-helper does LESS THAN HALF the effort. [place] lifts, holds or supports trunk or limbs, but provides less than half the effort. 2-Substantial/Maximal Assistance-helper does MORE THAN HALF the effort. [place] lifts or holds trunk or limbs and provides more than half the effort. 8-Gcdeifnvi-catzaq does ALL the effort. Patient does none of the effort to complete the activity. Or, the assistance of 2 or more helpers is required for the patient to complete the activity. If activity was not attempted, code reason: 7-Patient Refused. 9-Not Applicable-not attempted and the patient did not perform the activity before the current illness, exacerbation or injury. 10-Not Attempted due to Environmental Limitations-(lack of equipment, weather restraints, etc.). 88-Not Attempted due to Medical Conditions or Safety Concerns. Shower/Bathe Self (QC): 4 (SBA to complete sponge bath seated in chair. Pt. states that she does not feel ready for shower just yet.) Upper Body Dressing (QC): 4 Lower Body Dressing (QC): 4 (SBA to doff/don underwear.) On/Off Footwear: 4 (SBA to doff/don slipper socks.) Other Treatment Pt. is able to stand at chair with SBA and no loss of balance. All needs met up in chair after ADLs. Education OT Patient Education: Correct positioning, Modified ADL techniques, Progress toward Goal/Update tx plan, Purpose of tx/functional activities, Reviewed precautions, Rehab process, Transfer techniques Teaching Recipient: Patient Teaching Methods: Demonstration, Discussion Response to Teaching: Verbalize Understanding, Return Demonstration OT Beater Dumper Goals Intermediate Goals Time Frame: Jul 14, 2020 Eating (QC): 6 Oral Hygiene (QC): 6 Toileting Hygiene (QC): 6 Shower/Bathe Self (QC): 4 Upper Body Dressing (QC): 6 Lower Body Dressing (QC): 6 On/Off Footwear (QC): 6 Additional Goals: 1-Demonstrate ADL Tasks, 2-Verbalize Understanding, 3- ImproveStrength/Kobe 1=Demonstrate adherence to instructed precautions during ADL tasks. 2=Patient will verbalize/demonstrate understanding of assistive devices/modifications for ADL. 3=Patient will improve strength/tolerance for activity to enable patient to perform ADL's. OT Education/Plan Problem List/Assessment Assessment: Decreased Activ Tolerance Discharge Recommendations Plan/Recommendations: Continue POC Therapy Discharge Recommendati: Home & Family Treatment Plan/Plan of Care Treatment,Training & Education: Yes Patient would benefit from OT for education, treatment and training to promote independence in ADL's, mobility, safety and/or upper extremity function for ADL 's. Plan of Care: ADL Retraining, Caregiver Training, Concurrent Therapy, Functional Mobility, UE Funct Exercise/Act, UE Neuromus Re-Ed/Coord Treatment Duration: Jul 14, 2020 Frequency: 5 times per week Estimated Hrs Per Day: .25 hour per day Agreement: Yes Rehab Potential: Good Time/GCodes Start Time: 14:15 Stop Time: 14:40 Total Time Billed (hr/min): 25 Billed Treatment Time 1, ADL x 25minutes ALIYA LANDRY OT Jul 08, 2020 15:45
[2020-07-08 15:54] VITALS: BP 155/68
[2020-07-08 19:48] VITALS: BP 172/74
[2020-07-08] MEDS ORDERED: KCL 20 MEQ TAB (K-DUR) PO ONE (21:30)
[2020-07-08] MEDS: VENlafaxine XR 75 MG (EFFEXOR XR) CAP PO SCH (21:43)
[2020-07-09] VITALS: BP 142/72
[2020-07-09 04:00] VITALS: BP 138/65
[2020-07-09 05:04] LABS: BASOPHILS % (AUTO) 1 % (0-10); EOSINOPHILS # (AUTO) 0.3 10^3/uL (0.0-0.3); EOSINOPHILS % (AUTO) 6 % (0-10); HEMATOCRIT 26 % (35-52); HEMOGLOBIN 8.2 g/dL (11.5-16.0); LYMPHOCYTES % (AUTO) 24 % (12-44); MEAN CORPUSCULAR HEMOGLOBIN 28 pg (25-34); MEAN CORPUSCULAR HGB CONC 31 g/dL (32-36); MEAN CORPUSCULAR VOLUME 89 fL (80-99); MEAN PLATELET VOLUME 10.8 fL (9.0-12.2); MONOCYTES # (AUTO) 0.4 10^3/uL (0.0-1.0); MONOCYTES % (AUTO) 11 % (0-12); NEUTROPHILS # (AUTO) 2.4 10^3/uL (1.8-7.8); NEUTROPHILS % (AUTO) 58 % (42-75); PLATELET COUNT 205 10^3/uL (130-400); WHITE BLOOD COUNT 4.1 10^3/uL (4.3-11.0)
[2020-07-09 05:23] LABS: CALCIUM 8.3 MG/DL (8.5-10.1)
[2020-07-09 05:27] LABS: CREATININE SERUM 1.56 MG/DL (0.60-1.30)
[2020-07-09] MEDS: LEVOTHYROXINE 75 MCG (LEVOTHROID) TABLET PO SCH (06:53)
[2020-07-09] MEDS: inSUlin ASPART (NovoLOG) 1 UNIT/0.01 ML (CHARGE PER UNIT) SC SCH ×2 (06:54→12:05)
[2020-07-09 08:00] VITALS: BP 142/67
--- NOTE | 2020-07-09 08:43 | Progress Note - Hospitalist ---
Subjective HPI/CC On Admission Date Seen by Provider: Jul 09, 2020 Time Seen by Provider: 08:30 Subjective/Events-last exam Pt states that she is feeling pretty well this morning. Denies any new pains. Denies CP, SOB, stomach pain, NVD. She states that she thinks that she is getting stronger with PT and feels safe enough to go home. She does have some mild leg swelling this morning. She has no other complaints. Her potassium did drop lower to 3.0 today. HGB has improved to 8.2 Objective Exam Vital Signs Vital Signs Date Time Temp Pulse Resp B/P (MAP) Pulse Ox O2 Delivery O2 Flow Rate FiO2 07/09/20 08:00 36.0 57 16 142/67 (92) 95 Room Air Capillary Refill : Less Than 3 SecondsLess Than 3 Seconds General Appearance: No Apparent Distress, WD/WN Neck: Full Range of Motion, Non Tender Respiratory: Chest Non Tender, Lungs Clear, Normal Breath Sounds, No Accessory Muscle Use, No Respiratory Distress Cardiovascular: Regular Rate, Rhythm, No Edema, No Gallop, No JVD, No Murmur, Normal Peripheral Pulses Gastrointestinal: Normal Bowel Sounds, No Organomegaly, No Pulsatile Mass, Non Tender, Soft Rectal: Deferred Back: No CVA Tenderness, No Vertebral Tenderness Extremity: Normal Capillary Refill, Normal Inspection, Normal Range of Motion, Non Tender, No Calf Tenderness, Pedal Edema (Mild pedal edema in bilateral legs) Neurologic/Psychiatric: Alert, Oriented x3, No Motor/Sensory Deficits Skin: Normal Color, Warm/Dry Results/Procedures Lab Laboratory Tests 07/09/20 04:35 Patient resulted labs reviewed. Assessment/Plan Assessment and Plan Assess & Plan/Chief Complaint 74 year old female presents with weakness, falls. She is hyperglycemic and appears to have current UTI. Hyperglycemia 07/07 -Hyperglycemia likely due to current infection -ABX for infection, ensure patient stays hydrated -Pt compliant with DM medications, no need to adjust at this time KRISTIN 07/09 -Kidneys improving, continue fluids, continue to monitor 07/08 --KRISTIN improving today, continue with fluids. 07/07 -KRISTIN likely due to pt dehydration and UTI -Ensure patient stays hydrated -Continue to monitor kidney function with morning labs, urine output -If kidney function does not improve after uti, consider US UTI 07/07 -Continue ABX Weakness/Falls 07/09 -Pt feels stronger, safe enough to return home -Followup with some short term home PT 07/08 --PT/OT administered today, Pt did well 07/07 -Likely result of hyperglycemia, UTI, Dehydration -Ensure patient is strong enough to walk without assistance at discharge time -Ensure that patient will have help at home if needed . Hypokalemia 07/09 -K dropped to 3.0, continue to monitor 07/08 -Slight hypokalemia today -Continue to monitor with labs -Replace K if levels fail to improve or get worse Pt stable enough to discharge today. Diagnosis/Problems Diagnosis/Problems (1) UTI (urinary tract infection) (2) Dehydration Status: Acute (3) Physical debility Status: Acute (4) Hyperglycemia due to type 2 diabetes mellitus Status: Acute Qualifiers: Qualified Codes: E11.65 - Type 2 diabetes mellitus with hyperglycemia Supervisory-Addendum Brief Verification & Attestation Participated in pt care: history, physical Personally performed: exam Care discussed with: other Procedures: n/a n/a ALEJANDRA SEGUNDO MED STUDENT Jul 09, 2020 08:43
[2020-07-09] MEDS: meTOprolol TARTRATE 50 MG (LOPRESSOR) TAB PO SCH (08:57)
[2020-07-09] MEDS: GLIMEPIRIDE 4 MG (AMARYL) TAB PO SCH (08:58)
[2020-07-09] MEDS: GABAPENTIN 300 MG (NEURONTIN) CAP PO SCH (08:58)
--- NOTE | 2020-07-09 11:44 | Discharge Summary ---
Discharge Summary Reconcile Patient Problems Problems Reviewed?: Yes Instructions for Patient Via [employer], Assessment/Instructions UTI Acute Renal Failure Type II diabetes: Uncontrolled Normocytic anemia Physician to follow Patient: Chaka Discharge Diet for Home: ADA Diet Hospital Course Date of Admission: Jul 07, 2020 at 07:53 Admission Diagnosis : Family Physician/Provider: Willow Pruitt MD Date of Discharge: 07/09/20 Discharge Diagnosis: UTI Acute on Chronic Renal Failure Uncontrolled Type II DM Normocytic Anemia Debility Advanced Age Hospital Course: 74 yo F that presented with frequent falls and confusion that was found to have UTI. Patient was started on IVFs and IV antibiotics and was seen by PT. Mental status improved to baseline and labs improved. Would benefit from PT. Labs and Pending Lab Test: Laboratory Tests 07/08/20 15:29: Glucometer 231H 07/08/20 20:42: Glucometer 254H 07/09/20 04:35: White Blood Count 4.1L, Red Blood Count 2.96L, Hemoglobin 8.2L, Hematocrit 26L, Mean Corpuscular Volume 89, Mean Corpuscular Hemoglobin 28, Mean Corpuscular Hemoglobin Concent 31L, Red Cell Distribution Width 16.1H, Platelet Count 205, Mean Platelet Volume 10.8, Immature Granulocyte % (Auto) 1, Neutrophils (%) (Auto) 58, Lymphocytes (%) (Auto) 24, Monocytes (%) (Auto) 11, Eosinophils (%) (Auto) 6, Basophils (%) (Auto) 1, Neutrophils # (Auto) 2.4, Lymphocytes # (Auto) 1.0, Monocytes # (Auto) 0.4, Eosinophils # (Auto) 0.3, Basophils # (Auto) 0.0, Immature Granulocyte # (Auto) 0.0, Sodium Level 138, Potassium Level 3.0L, Chloride Level 99, Carbon Dioxide Level 27, Anion Gap 12, Blood Urea Nitrogen 25H, Creatinine 1.56H, Estimat Glomerular Filtration Rate 32, BUN/Creatinine Ratio 16, Glucose Level 232H, Calcium Level 8.3L 07/09/20 11:05: Glucometer 290H Microbiology 07/07/20 Urine Culture - Preliminary, Resulted Escherichia coli Home Meds Active Reported Zyrtec (Cetirizine HCl) 10 Mg Tablet 10 Mg PO 1200 Sucralfate 1 Gm Tablet 1 Gm PO BID PRN Glimepiride 4 Mg Tablet 4 Mg PO DAILY Neurontin (Gabapentin) 300 Mg Capsule 300 Mg PO HS Neurontin (Gabapentin) 300 Mg Capsule 600 Mg PO DAILY TAKES 2 (300MG) CAPS Onglyza (Saxagliptin HCl) 5 Mg Tablet 5 Mg PO HS Letrozole 2.5 Mg Tablet 2.5 Mg PO HS Metformin HCl 1,000 Mg Tablet 1,000 Mg PO 1800 W/MEAL Metolazone 2.5 Mg Tablet 2.5 Mg PO MO,WE,FR Omeprazole 20 Mg Capsule.dr 20 Mg PO BID Atorvastatin Calcium 40 Mg Tablet 40 Mg PO HS Metoprolol Tartrate 100 Mg Tablet 100 Mg PO BID Euthyrox (Levothyroxine Sodium) 75 Mcg Tablet 75 Mcg PO DAILY Bumetanide 1 Mg Tablet 1 Mg PO DAILY Hydrocodone-Acetamin 5-325 mg (Hydrocodone/Acetaminophen) 1 Each Tablet 1 Ea PO DAILY PRN Venlafaxine HCl ER (Venlafaxine HCl) 75 Mg Cap.er.24h 75 Mg PO HS Metronidazole 250 Mg Tablet 250 Mg PO TID FILLED 06-28-2020 #15/5 DAY SUPPLY Fluticasone Propionate 16 Gm [place].susp 2 Sprays NSEACH HS Colestipol HCl 1 Gm Tablet 1 Gm PO 1800 Patient Allergies: Coded Allergies: cephalexin (Verified Allergy, Unknown, 07/07/20) doxycycline (Verified Allergy, Unknown, 07/07/20) levofloxacin (Verified Allergy, Unknown, 07/07/20) New Medications: Nitrofurantoin Monohyd/M-Cryst (Macrobid 100 mg Capsule) 100 Mg Capsule 1 TAB PO BID for 5 Days, #10 CAP Changed Medications: Bumetanide (Bumetanide) 1 Mg Tablet 1 MG PO DAILY for 30 Days, TAB (Medication details modified) Hold until seen by PCP due to renal insuff Metolazone (Metolazone) 2.5 Mg Tablet 2.5 MG PO MO,WE,FR for 30 Days, TAB (Medication details modified) hold until seen by PCP due to renal insuff Continued Medications: Atorvastatin Calcium (Atorvastatin Calcium) 40 Mg Tablet 40 MG PO HS, TAB Cetirizine HCl (Zyrtec) 10 Mg Tablet 10 MG PO 1200, TAB Colestipol HCl (Colestipol HCl) 1 Gm Tablet 1 GM PO 1800, TAB Fluticasone Propionate (Fluticasone Propionate) 16 Gm [place].susp 2 SPRAYS NSEACH HS, EA Gabapentin (Neurontin) 300 Mg Capsule 600 MG PO DAILY, CAP TAKES 2 (300MG) CAPS Gabapentin (Neurontin) 300 Mg Capsule 300 MG PO HS, CAP Glimepiride (Glimepiride) 4 Mg Tablet 4 MG PO DAILY, TAB Hydrocodone/Acetaminophen (Hydrocodone-Acetamin 5-325 mg) 1 Each Tablet 1 EA PO DAILY PRN for PAIN-MODERATE (5-7), TAB Letrozole (Letrozole) 2.5 Mg Tablet 2.5 MG PO HS, TAB Levothyroxine Sodium (Euthyrox) 75 Mcg Tablet 75 MCG PO DAILY, TAB Metformin HCl (Metformin HCl) 1,000 Mg Tablet 1000 MG PO 1800 W/MEAL, TAB Metoprolol Tartrate (Metoprolol Tartrate) 100 Mg Tablet 100 MG PO BID, TAB Omeprazole (Omeprazole) 20 Mg Capsule.dr 20 MG PO BID, CAP Saxagliptin HCl (Onglyza) 5 Mg Tablet 5 MG PO HS, TAB Sucralfate (Sucralfate) 1 Gm Tablet 1 GM PO BID PRN for ULCER, TAB Venlafaxine HCl (Venlafaxine HCl ER) 75 Mg Cap.er.24h 75 MG PO HS, CAP Discontinued Medications: Metronidazole (Metronidazole) 250 Mg Tablet 250 MG PO TID, TAB FILLED 06-28-2020 #15/5 DAY SUPPLY Home Health Need/Face to Face Date of Face to Face: Jul 09, 2020 Clinical Findings: Generalized weakness and fatigue, Instability, Muscle weakness, Unsteady gait I have seen Pt [id number]: Yes Discharged To: Home Diagnosis/Conditions: See above Patient is Homebound due to: James fall risk due to instabilty, Muscle weakness, Pain w/ambulation Homebound Status Due to the above stated illness, injury or surgical procedure (medical condition or diagnosis) and associated clinical findings, the patient is homebound because of his/her inability to leave home except with aid of a supportive device and/or person AND leaving the home requires a considerable and taxing effort or is medically contraindicated. Pt req the following assistanc: Walker Home Health Nursing Orders Home Health Services Order: Physical Therapy-Evaluate & Treat Home Health Infusion Therapy Line Start Date: Jul 07, 2020 Therapy Orders Therapy Orders: Physical Therapy, PT to assess for OT Therapy Specific Orders: Teach enviro modifications/safety, Gait training, Increase strength/endurance Certify Stmt I certify that this patient is under my care and that I, a nurse practitioner or a physician; a assistant professor of economics working with me, had a face to face encounter that - meets the physician face to face encounter requirements with this patient as dated. Discharge Physical Exam General: Alert, Oriented X3, Cooperative, No Acute Distress HEENT: Mucous Memb Moist/[place] Lungs: Clear to Auscultation, Normal Air Movement Heart: Regular Rate, No Murmurs Abdomen: Normal Bowel Sounds, Soft, No Tenderness, No Masses Extremities: No Edema, No Tenderness/Swelling Skin: No Rashes Neuro: Normal Speech, Sensation Intact, Cranial Nerves 3-12 NL JESÚS FOX MD Jul 09, 2020 11:44
[2020-07-09] MEDS ORDERED: METO2.5T PO (11:47)
[2020-07-09] MEDS ORDERED: BUME1TAB8 PO (11:47)
[2020-07-09] MEDS ORDERED: NITR-65 PO (11:49)
[2020-07-09 12:00] VITALS: BP 119/67
--- NOTE | 2020-07-09 12:18 | NUR ---
CM/SS finalized discharge. Plan: Patient is discharging to home today with home health and a front wheeled walker. DME: CM/SS contacted [facility] at the agency and faxed face sheet, h&p, PT note, and script to the agency. Home Health: CM/SS informed [facility] at home that patient was discharging today. Chantale verbalized understanding. No further needs at this time.
--- NOTE | 2020-07-09 16:48 | NUR ---
Reviewed all discharge orders, meds, and follow up appts. All questions answered.
== END 2020-07-09 16:30 | disposition home health service (06) ==
LOC: ER 04:02 → 4TH 07:53
PROVIDERS: ADMIT Family Medicine; ATTEND Family Medicine
DX: N39.0 Urinary tract infection, site not specified (principal); E11.22 Type 2 diabetes mellitus with diabetic chronic kidney disease; I12.9 Hypertensive chronic kidney disease with stage 1 through stage 4 chronic kidney disease, or unspecified chronic kidney disease; N18.9 Chronic kidney disease, unspecified; N17.9 Acute kidney failure, unspecified; D63.1 Anemia in chronic kidney disease; R29.6 Repeated falls; G47.30 Sleep apnea, unspecified; E11.40 Type 2 diabetes mellitus with diabetic neuropathy, unspecified; E11.65 Type 2 diabetes mellitus with hyperglycemia; Z79.84 Long term (current) use of oral hypoglycemic drugs; Z79.899 Other long term (current) drug therapy; Z88.1 Allergy status to other antibiotic agents; Z90.710 Acquired absence of both cervix and uterus
CPT/HCPCS: 51701; 71045; 80048 ×2; 80053; 81000; 82962 ×3; 83036; 83880; 85025 ×3; 86141; 87077; 87088; 87186; 97110; 97162; 97165; 97530; 97535 ×2; 99284; G0378; 36415

== ENCOUNTER 2021-08-21 15:58 | Emergency (ER) | payer MEDICARE, OTHER ==
[~2021-08-21] VITALS: Ht 160 cm; Wt 79.0 kg
[~2021-08-21 15:58] MED LIST: ACHD5005 PO; ATOR40TA70 PO; BUME1TAB8 PO; CETI10TA49 PO; COLE1TAB PO; FLUT16SP22 NSEACH; GABA300C PO; GLIM4TAB5 PO; LETR2.5T6 PO; LEVO75TA97 PO; METF-399 PO; METO100T12 PO; METO2.5T PO; METR-143 PO; NITR-65 PO; OMEP20CA18 PO; SAXA5TAB PO; SUCR1TAB PO; VENL75CA93 PO
[2021-08-21 17:35] LABS: BASOPHILS % (AUTO) 0 % (0-10); BILIRUBIN,URINE NEGATIVE (NEGATIVE); CLARITY,URINE CLEAR; COLOR,URINE YELLOW; EOSINOPHILS # (AUTO) 0.1 10^3/uL (0.0-0.3); EOSINOPHILS % (AUTO) 2 % (0-10); GLUCOSE, URINE (UA) NEGATIVE (NEGATIVE); HEMATOCRIT 31 % (35-52); HEMOGLOBIN 9.8 g/dL (11.5-16.0); KETONES,URINE TRACE (NEGATIVE); LEUKOCYTE ESTERASE ,URINE NEGATIVE (NEGATIVE); LYMPHOCYTES # (AUTO) 0.6 10^3/uL (1.0-4.0); LYMPHOCYTES % (AUTO) 9 % (12-44); MEAN CORPUSCULAR HEMOGLOBIN 29 pg (25-34); MEAN CORPUSCULAR HGB CONC 31 g/dL (32-36); MEAN CORPUSCULAR VOLUME 92 fL (80-99); MEAN PLATELET VOLUME 9.8 fL (9.0-12.2); MONOCYTES # (AUTO) 0.4 10^3/uL (0.0-1.0); MONOCYTES % (AUTO) 6 % (0-12); NEUTROPHILS % (AUTO) 83 % (42-75); NITRITE,URINE NEGATIVE (NEGATIVE); PLATELET COUNT 280 10^3/uL (130-400); PROTEIN,URINE NEGATIVE (NEGATIVE); WHITE BLOOD COUNT 7.2 10^3/uL (4.3-11.0)
[2021-08-21 17:44] LABS: BACTERIA,URINE TRACE /HPF
[2021-08-21 17:46] LABS: ALBUMIN 3.3 GM/DL (3.2-4.5); POTASSIUM 4.1 MMOL/L (3.6-5.0)
[2021-08-21 17:47] LABS: CALCIUM 9.6 MG/DL (8.5-10.1)
[2021-08-21 17:48] LABS: TOTAL PROTEIN 6.7 GM/DL (6.4-8.2)
[2021-08-21 17:50] LABS: BILIRUBIN,TOTAL 1.1 MG/DL (0.1-1.0)
[2021-08-21 17:52] LABS: CREATININE SERUM 1.3 MG/DL (0.60-1.30)
[2021-08-21 17:55] LABS: MAGNESIUM 1.6 MG/DL (1.6-2.4)
[2021-08-21] MEDS ORDERED: HYDROcodone/APAP 5 MG/325 MG (LORTAB) TAB PO ONE (18:00)
[2021-08-21 18:16] LABS: FREE T4 (FREE THYROXINE) 1.13 NG/DL (0.70-1.48)
[2021-08-21] MEDS ORDERED: ACHD5005 PO (18:55)
--- NOTE | 2021-08-21 18:58 | ED General ---
General Chief Complaint: General Problems/Pain Stated Complaint: NEEDING CONTINUED CARE/UTI SYMPTOMS Nursing Triage Note: PT TO ED PER W/C W/ FOR C/O "THE [facility] CANNOT GIVE ME WHAT I NEED." PT REPORTS SHE FELL IN THE PARKING LOT OF A GAS STATION 06/18/21 ET HAS BEEN AT A HOSPITAL IN [facility] UNTIL TODAY AFTER BREAKING HER "SHOULDER". PT STATES SHE ARRIVED AT [facility] FOR "REHAB" 1HR PRIOR TO COMING TO ED. STATES "IT'S TOO LOUD AND THEY CANNOT GIVE ME WHAT I NEED". PT REPORTS SHE CAME TO ED "TO REST". AT BEDSIDE THROUGHOUT. Source of Information: Patient Exam Limitations: No Limitations History of Present Illness Date Seen by Provider: Aug 21, 2021 Time Seen by Provider: 16:15 Initial Comments This is 75-year-old woman is brought to the emergency room by her and staff from [facility]. Last week she was traveling to [place] to see her accountant property for taxes. They stopped at a convenience store where she tripped and fell resulting in a fracture of her right humerus. She was admitted to the hospital in [facility] where she was cared for and discharged 6 days later. Arrangements were made for admission to [facility] for rehab. Patient arrived at the nursing facility and was immediately displeased with the accommodations. She signed out AGAINST MEDICAL ADVICE and decided to present to the ER and request admission. She describes uncontrolled pain with her right humerus fracture and inability to ambulate and transfer on her own. She says that she can bear weight for short periods of time. She did not have any change in her condition between departure from the hospital in [place] and now. Dr. Willard Kang is her primary care provider. Allergies and Home Medications Allergies Coded Allergies: cephalexin (Verified Allergy, Unknown, 07/07/20) doxycycline (Verified Allergy, Unknown, 07/07/20) levofloxacin (Verified Allergy, Unknown, 07/07/20) Patient Home Medication List Home Medication List Reviewed: Yes Atorvastatin Calcium (Atorvastatin Calcium) 40 Mg Tablet, 40 MG PO HS, (Reported) Entered as Reported by: EDEN VELA on 07/07/20 1402 Bumetanide (Bumetanide) 1 Mg Tablet, 1 MG PO DAILY Prescribed by: JESÚS FOX on 07/09/20 1147 Cetirizine HCl (Zyrtec) 10 Mg Tablet, 10 MG PO 1200, (Reported) Entered as Reported by: EDEN VELA on 07/07/20 140 Colestipol HCl (Colestipol HCl) 1 Gm Tablet, 1 GM PO 1800, (Reported) Entered as Reported by: EDEN VELA on 07/07/20 140 Fluticasone Propionate (Fluticasone Propionate) 16 Gm [place].susp, 2 SPRAYS NSEACH HS, (Reported) Entered as Reported by: EDEN VELA on 07/07/20 140 Gabapentin (Neurontin) 300 Mg Capsule, 600 MG PO DAILY, (Reported) Entered as Reported by: EDEN VELA on 07/07/20 140 Gabapentin (Neurontin) 300 Mg Capsule, 300 MG PO HS, (Reported) Entered as Reported by: EDEN VELA on 07/07/20 140 Glimepiride (Glimepiride) 4 Mg Tablet, 4 MG PO DAILY, (Reported) Entered as Reported by: EDEN VELA on 07/07/201401 Hydrocodone/Acetaminophen (Hydrocodone-Acetamin 5-325 mg) 1 Each Tablet, 1 EA PO DAILY PRN for PAIN-MODERATE (5-7), (Reported) Entered as Reported by: EDEN VELA on 07/07/201401 Hydrocodone/Acetaminophen (Hydrocodone-Acetamin 5-325 mg) 1 Each Tablet, 1 TAB PO Q4H PRN for PAIN-MODERATE (5-7) Prescribed by: MAGGIE ALMANZA on 08/21/21 185 Letrozole (Letrozole) 2.5 Mg Tablet, 2.5 MG PO HS, (Reported) Entered as Reported by: EDEN VELA on 07/07/20 140 Levothyroxine Sodium (Euthyrox) 75 Mcg Tablet, 75 MCG PO DAILY, (Reported) Entered as Reported by: EDEN VELA on 07/07/20 140 Metformin HCl (Metformin HCl) 1,000 Mg Tablet, 1,000 MG PO 1800 W/MEAL, (Reported) Entered as Reported by: EDEN VELA on 07/07/20 140 Metolazone (Metolazone) 2.5 Mg Tablet, 2.5 MG PO MO,WE,FR Prescribed by: JESÚS FOX on 07/09/20 1147 Metoprolol Tartrate (Metoprolol Tartrate) 100 Mg Tablet, 100 MG PO BID, (Reported) Entered as Reported by: EDEN VELA on 07/07/20 140 Nitrofurantoin Monohyd/M-Cryst (Macrobid 100 mg Capsule) 100 Mg Capsule, 1 TAB PO BID Prescribed by: JESÚS FOX on 07/09/20 1149 Omeprazole (Omeprazole) 20 Mg Capsule.dr, 20 MG PO BID, (Reported) Entered as Reported by: EDEN VELA on 07/07/20 140 Saxagliptin HCl (Onglyza) 5 Mg Tablet, 5 MG PO HS, (Reported) Entered as Reported by: EDEN VELA on 07/07/20 140 Sucralfate (Sucralfate) 1 Gm Tablet, 1 GM PO BID PRN for ULCER, (Reported) Entered as Reported by: EDEN VELA on 07/07/20 140 Venlafaxine HCl (Venlafaxine HCl ER) 75 Mg Cap.er.24h, 75 MG PO HS, (Reported) Entered as Reported by: EDEN VELA on 07/07/20 140 Review of Systems Review of Systems Constitutional: see HPI, weakness EENTM: no symptoms reported Respiratory: no symptoms reported Cardiovascular: no symptoms reported Gastrointestinal: no symptoms reported Genitourinary: no symptoms reported Musculoskeletal: see HPI Skin: no symptoms reported Psychiatric/Neurological: See HPI Hematologic/Lymphatic: No Symptoms Reported Immunological/Allergic: no symptoms reported Past [id number] Hx Patient Social History Tobacco Use?: No Use of E-Cig and/or Vaping dev: No Substance use?: No Alcohol Use?: No Pt feels they are or have been: No Seasonal Allergies Seasonal Allergies: No Past Medical History Surgery/Hospitalization HX: RT SHOULDER FX Surgeries: Yes (KNEE, ) Hysterectomy, Orthopedic Respiratory: Yes Sleep Apnea Currently Using CPAP: No Currently Using BIPAP: Yes Cardiac: Yes Hypertension Neurological: Yes (STROKE 2006) 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 oz. kg; 30.00 BMI Method: General Appearance: No Apparent Distress, WD/WN, Obese HEENT: PERRL/EOMI, Normal ENT Inspection Neck: Normal Inspection Respiratory: Lungs Clear, Normal Breath Sounds, No Accessory Muscle Use Cardiovascular: Regular Rate, Rhythm, No Edema, No Murmur Gastrointestinal: Non Tender, Soft Extremity: Normal Inspection, No Pedal Edema, Other (Right arm dressed and in splint. Normal radial pulse. Range of motion in fingers intact.) Neurologic/Psychiatric: Alert, Oriented x3, No Motor/Sensory Deficits, Normal Mood/Affect Skin: Normal Color, Warm/Dry Progress/Results/Core Measures Suspected Sepsis SIRS Temperature: Pulse: 62 Respiratory Rate: 18 Laboratory Tests 08/21/21 17:25: White Blood Count 7.2 Blood Pressure 144 /78 Mean: 100 Laboratory Tests 08/21/21 17:25: Creatinine 1.30, Platelet Count 280, Total Bilirubin 1.1H Results/Orders Lab Results Laboratory Tests Test 08/21/21 17:25 Range/Units White Blood Count 7.2 4.3-11.0 10^3/uL Red Blood Count 3.40 L 3.80-5.11 10^6/uL Hemoglobin 9.8 L 11.5-16.0 g/dL Hematocrit 31 L 35-52 % Mean Corpuscular Volume 92 80-99 fL Mean Corpuscular Hemoglobin 29 25-34 pg Mean Corpuscular Hemoglobin Concent 31 L 32-36 g/dL Red Cell Distribution Width 14.2 10.0-14.5 % Platelet Count 280 130-400 10^3/uL Mean Platelet Volume 9.8 9.0-12.2 fL Immature Granulocyte % (Auto) 0 % Neutrophils (%) (Auto) 83 H 42-75 % Lymphocytes (%) (Auto) 9 L 12-44 % Monocytes (%) (Auto) 6 0-12 % Eosinophils (%) (Auto) 2 0-10 % Basophils (%) (Auto) 0 0-10 % Neutrophils # (Auto) 6.0 1.8-7.8 10^3/uL Lymphocytes # (Auto) 0.6 L 1.0-4.0 10^3/uL Monocytes # (Auto) 0.4 0.0-1.0 10^3/uL Eosinophils # (Auto) 0.1 0.0-0.3 10^3/uL Basophils # (Auto) 0.0 0.0-0.1 10^3/uL Immature Granulocyte # (Auto) 0.0 0.0-0.1 10^3/uL Urine Color YELLOW Urine Clarity CLEAR Urine pH 6.0 5-9 Urine Specific [place] 1.015 L 1.016-1.022 Urine Protein NEGATIVE NEGATIVE Urine Glucose (UA) NEGATIVE NEGATIVE Urine Ketones TRACE H NEGATIVE Urine Nitrite NEGATIVE NEGATIVE Urine Bilirubin NEGATIVE NEGATIVE Urine Urobilinogen 0.2 < = 1.0 MG/DL Urine Leukocyte Esterase NEGATIVE NEGATIVE Urine RBC (Auto) NEGATIVE NEGATIVE Urine RBC NONE /HPF Urine WBC NONE /HPF Urine Squamous Epithelial Cells 2-5 /HPF Urine Crystals NONE /LPF Urine Bacteria TRACE /HPF Urine Casts NONE /LPF Urine Mucus NEGATIVE /LPF Urine Culture Indicated NO Sodium Level 139 135-145 MMOL/L Potassium Level 4.1 3.6-5.0 MMOL/L Chloride Level 108 H 98-107 MMOL/L Carbon Dioxide Level 19 L 21-32 MMOL/L Anion Gap 12 5-14 MMOL/L Blood Urea Nitrogen 30 H 7-18 MG/DL Creatinine 1.30 0.60-1.30 MG/DL Estimat Glomerular Filtration Rate 43 BUN/Creatinine Ratio 23 Glucose Level 126 H 70-105 MG/DL Calcium Level 9.6 8.5-10.1 MG/DL Corrected Calcium 10.2 H 8.5-10.1 MG/DL Magnesium Level 1.6 1.6-2.4 MG/DL Total Bilirubin 1.1 H 0.1-1.0 MG/DL Aspartate Amino Transf (AST/SGOT) 27 5-34 U/L Alanine Aminotransferase (ALT/SGPT) 14 0-55 U/L Alkaline Phosphatase 116 40-136 U/L C-Reactive Protein High Sensitivity 10.16 H 0.00-0.50 MG/DL Total Protein 6.7 6.4-8.2 GM/DL Albumin 3.3 3.2-4.5 GM/DL Thyroid Stimulating Hormone (TSH) 9.38 H 0.35-4.94 UIU/ML Free Thyroxine 1.13 0.70-1.48 NG/DL My Orders Orders - MAGGIE COLVIN MD Cbc With Automated Diff (08/21/21 16:15) Comprehensive Metabolic Panel (08/21/21 16:15) Hs C Reactive Protein (08/21/21 16:15) Magnesium (08/21/21 16:15) Thyroid Stimulating Hormone (08/21/21 16:15) Ua Culture If Indicated (08/21/21 16:15) Free T4 (Free Thyroxine) (08/21/21 16:15) Ed Iv/Invasive Line Start (08/21/21 16:15) Hydrocodone/Apap 5/325 Tablet (Lortab 5 (08/21/21 18:00) Rx-Hydrocodone/Apap 5-325 Mg (Rx-Vicodin (08/21/21 18:45) Medications Given in ED Current Medications Medications Dose Ordered Sig/Chad Route Start Time Stop Time Status Last Admin Dose Admin Acetaminophen/ Hydrocodone Bitart 1 ea ONCE ONCE PO 08/21/21 18:00 08/21/21 18:01 DC 08/21/21 18:23 1 EA Vital Signs/I&O 08/21/21 16:27 Temp 35.9 Pulse 62 Resp 18 B/P (MAP) 144/78 (100) O2 Delivery Room Air Capillary Refill : Less Than 3 Seconds Blood Pressure Mean: 100 Progress Note : Progress Note I had a long conversation with the patient, her , and grandson. I explained that I cannot simply admit her to the hospital as a substitute for the long-term and that she needed to meet admissible criteria. Because of her weakness and pain, I agreed to do a general work-up with labs. Because her vital signs were relatively normal and there were no major abnormalities identified on the labs that would require admission, I could not admit her to the hospital when she already had nursing care arranged at [facility]. I did contact [facility] and they stated they would take her back for admission. Patient absolutely refused to go to [facility] despite her 's and grandson's urgings. She was provided with a take-home pack of hydrocodone and a small quantity prescription to help her control pain until she can see her primary care provider. I again explained to her and the family that I could not simply admit her to the hospital for the sole purpose of transitioning her from one long-term to another. They expressed understanding, but the patient was rather upset about her predicament. Departure Impression Primary Impression: Right humeral fracture Additional Impression: Debility, unspecified Disposition: 01 HOME, SELF-CARE Condition: Stable Departure-Patient Inst. Decision time for Depature: 18:54 Referrals: NORMA KANG MD (PCP/Family) Primary Care Physician Patient Instructions: Upper Arm Fracture ED Add. Discharge Instructions: Use your pain medication as prescribed. Consider taking a stool softener such as Colace along with your pain medication to prevent constipation. Transfer and ambulate with assistance to avoid risk of fall. Consider obtaining a gait belt from a medical supply retailer. Follow-up with your primary care provider tomorrow. Call first thing in the morning for an appointment. Call with questions or concerns. Return to the ER if you have worsening condition. All discharge instructions reviewed with patient and/or family. Voiced understanding. Scripts Hydrocodone/Acetaminophen (Hydrocodone-Acetamin 5-325 mg) 1 Each Tablet 1 TAB PO Q4H PRN for PAIN-MODERATE (5-7), #10 TAB Prov: MAGGIE COLVIN MD 08/21/21 Copy Copies To 1: NOAH MUÑOZ JOSHUA T MD Aug 21, 2021 18:58
[2021-08-21 19:03] VITALS: BP 148/72
== END 2021-08-21 19:23 | disposition home or self-care (01) ==
LOC: EDUNIT# 15:58 → ER 16:01
DX: S42.301A Unspecified fracture of shaft of humerus, right arm, initial encounter for closed fracture (principal); R53.81 Other malaise; E66.9 Obesity, unspecified; Z68.30 Body mass index [BMI] 30.0-30.9, adult; W01.0XXA Fall on same level from slipping, tripping and stumbling without subsequent striking against object, initial encounter
CPT/HCPCS: 36415; 80053; 81000; 83735; 84439; 84443; 85025; 86141

== ENCOUNTER 2021-10-27 10:23 | Inpatient (IN) | payer MEDICARE, OTHER ==
[~2021-10-27] VITALS: Ht 162.5 cm; Wt 77.0 kg
[2021-10-27 11:15] VITALS: BP 123/58
[2021-10-27] MEDS ORDERED: HYDR-3817 PO (11:35)
[2021-10-27] MEDS ORDERED: CHOL200025 PO (11:35)
[2021-10-27] MEDS ORDERED: INSU100I29 SQ (11:35)
[2021-10-27] MEDS ORDERED: POTA10TA PO (11:35)
[2021-10-27] MEDS ORDERED: FERR325T18 PO (11:35)
[2021-10-27] MEDS ORDERED: FLUT9.9S NSEACH (11:35)
[2021-10-27] MEDS ORDERED: CYAN-41 PO (11:35)
[2021-10-27] MEDS ORDERED: GBPN600T PO (11:35)
[2021-10-27] MEDS ORDERED: BUME1TAB8 PO (11:35)
[2021-10-27] MEDS ORDERED: ROPI1TAB PO (11:35)
--- NOTE | 2021-10-27 11:41 | PM&R Post Admission Assessment ---
PM&R Date of Visit: October 27, 2021 Time of Visit: 11:30 History of Present Illness Chief complaint: Debility from right humerus fracture repair History of present illness: This is a 75-year-old female clinic patient of Dr. Willard Pruitt who presents from [facility] following an uncomplicated right humerus fracture repair by Dr. Salazar. She had a slow recovery with severe weakness requiring inpatient rehab prior to discharge home. She had a prior stroke in 2005 and remains emotionally labile since that time. This is a factor contributing to his slow recovery. is very involved and is able to provide most ADLs. Blood sugars have been low so I will hold all of her diabeti c medication and will initiate D5NS IV fluid for supportive care. Creatinine is 1.6 so we will closely monitor labs. Bowels moved 2 days ago. Will minimize pain medications due to oversedation. Past Ymmxczl-Mhgfgl-Zpwsek Hx Past Med/Social Hx: Reviewed Nursing Past Med/Soc Hx, Reviewed and Corrections made Patient Social History Marrital Status: Employed/Student: retired Alcohol Use: Denies Use Smoking Status: Never a Smoker 2nd Hand Smoke Exposure: No Recent Hopitalizations: No Seasonal Allergies Seasonal Allergies: No Past Medical History Surgeries: Hysterectomy, Orthopedic Respiratory: Sleep Apnea Currently Using CPAP: No Currently Using BIPAP: Yes Cardiac: Hypertension Neurological: Neuropathy, Stroke Hysterectomy Genitourinary: Renal Failure Gastrointestinal: Gastroesophageal Reflux Musculoskeletal: Arthritis Endocrine: Diabetes, Non-Insulin dep 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 PM&R Allergy/Meds/Data Review Allergies Coded Allergies: cephalexin (Verified Allergy, Unknown, 07/07/20) doxycycline (Verified Allergy, Unknown, 07/07/20) levofloxacin (Verified Allergy, Unknown, 07/07/20) Home Medications Scheduled Atorvastatin Calcium (Atorvastatin Calcium), 40 MG PO HS, (Reported) Bumetanide (Bumetanide), 1 MG PO DAILY, (Reported) Cetirizine HCl (Zyrtec), 10 MG PO DAILY, (Reported) Cholecalciferol (Vitamin D3) (Vitamin D3), 50 MCG PO HS, (Reported) Cyanocobalamin (Vitamin B-12) (Vitamin B-12), 1,000 MCG PO DAILY, (Reported) Ferrous Sulfate (Ferrous Sulfate), 325 MG PO HS, (Reported) Fluticasone Propionate (Flonase Allergy Relief), 2 SPRAY NSEACH DAILY, (Reported) Gabapentin (Gabapentin), 600 MG PO TID, (Reported) Glimepiride (Glimepiride), 4 MG PO DAILY, (Reported) Insulin Detemir (Levemir Flextouch), 10 UNIT SQ DAILY W/BREAKFAST, (Reported) Levothyroxine Sodium (Euthyrox), 75 MCG PO DAILY, (Reported) Metoprolol Tartrate (Metoprolol Tartrate), 100 MG PO BID, (Reported) Omeprazole (Omeprazole), 20 MG PO BID, (Reported) Potassium Chloride (K-Tab ER), 10 MEQ PO DAILY, (Reported) Ropinirole HCl (Ropinirole HCl), 1 MG PO HS, (Reported) Saxagliptin HCl (Onglyza), 5 MG PO 1300 AFTER LUNCH, (Reported) Scheduled PRN Hydrocodone/Acetaminophen (Hydrocodone-Acetamin 7.5-325), 2 EACH PO Q4H PRN for PAIN-MODERATE (5-7), (Reported) Discontinued Medications Bumetanide (Bumetanide), 1 MG PO DAILY Discontinued Reason: No Longer Taking Colestipol HCl (Colestipol HCl), 1 GM PO 1800, (Reported) Discontinued Reason: No Longer Taking Fluticasone Propionate (Fluticasone Propionate), 2 SPRAYS NSEACH HS, (Reported) Discontinued Reason: No Longer Taking Gabapentin (Neurontin), 600 MG PO DAILY, (Reported) Discontinued Reason: No Longer Taking Gabapentin (Neurontin), 300 MG PO HS, (Reported) Discontinued Reason: No Longer Taking Hydrocodone/Acetaminophen (Hydrocodone-Acetamin 5-325 mg), 1 EA PO DAILY PRN for PAIN-MODERATE (5-7), (Reported) Discontinued Reason: No Longer Taking Hydrocodone/Acetaminophen (Hydrocodone-Acetamin 5-325 mg), 1 TAB PO Q4H PRN for PAIN-MODERATE (5-7) Discontinued Reason: No Longer Taking Letrozole (Letrozole), 2.5 MG PO HS, (Reported) Discontinued Reason: No Longer Taking Metformin HCl (Metformin HCl), 1,000 MG PO 1800 W/MEAL, (Reported) Discontinued Reason: No Longer Taking Metolazone (Metolazone), 2.5 MG PO MO,WE,FR Discontinued Reason: No Longer Taking Nitrofurantoin Monohyd/M-Cryst (Macrobid 100 mg Capsule), 1 TAB PO BID Discontinued Reason: No Longer Taking Sucralfate (Sucralfate), 1 GM PO BID PRN for ULCER, (Reported) Discontinued Reason: No Longer Taking Venlafaxine HCl (Venlafaxine HCl ER), 75 MG PO HS, (Reported) Discontinued Reason: No Longer Taking Current Medications Current Medications Reviewed Review of Systems Constitutional: see HPI, dizziness, malaise, weakness EENTM: no symptoms reported Respiratory: dyspnea on exertion Cardiovascular: no symptoms reported Gastrointestinal: no symptoms reported Genitourinary: no symptoms reported Musculoskeletal: back pain, joint pain Skin: no symptoms reported Psychiatric/Neurological: Anxiety, Depressed, Emotional Problems All Other Systems Reviewed Negative Unless Noted: Yes Physical Exam Physical Exam Vital Signs Capillary Refill : Height, Weight, BMI Height: '" Weight: lbs. oz. kg; 30.00 BMI Method: General Appearance: WD/WN, Anxious, Chronically ill, Mild Distress Eyes: Bilateral Eye Normal Inspection, Bilateral Eye PERRL HEENT: PERRL/EOMI, Normal ENT Inspection, Pharynx Normal Neck: Full Range of Motion, Normal Inspection, Non Tender, Supple, Carotid Bruit Respiratory: Chest Non Tender, Lungs Clear, Normal Breath Sounds, No Accessory Muscle Use, No Respiratory Distress Cardiovascular: Regular Rate, Rhythm, No Edema, No Gallop, No JVD, No Murmur, Normal Peripheral Pulses Gastrointestinal: Normal Bowel Sounds, No Organomegaly, No Pulsatile Mass, Non Tender, Soft Back: Normal Inspection, No CVA Tenderness, No Vertebral Tenderness Extremity: Normal Capillary Refill, Normal Inspection, Normal Range of Motion (Except right arm in sling), Non Tender, No Calf Tenderness, No Pedal Edema Neurologic/Psychiatric: Alert, Oriented x3, No Motor/Sensory Deficits, Normal Mood/Affect, manager mall II-XII Norm as Tested, Abnormal Gait, Depressed Affect, Motor Weakness (Generalized) Skin: Normal Color, Warm/Dry Lymphatic: No Adenopathy PM&R Medical Assessment & Plan REHAB/MEDICAL ASSESSMENT AND PLAN: REHAB IMPAIRMENT GROUP: Debility from right humerus fracture dominant hand ETIOLOGIC DIAGNOSIS: Debility from right humerus fracture dominant hand The comorbidities that impact the patients function and/or functional outcome by: Dominant arm in sling, tearfulness from CVA residual effect, severe weakness, severe LENNY REHAB PLAN: The patient is being admitted to our comprehensive inpatient rehabilitation facility and can tolerate the intensity of service consisting of at least: 180 minutes of therapy a day, 5 out of 7 days a week Rehab treatment will consist of: PT and OT will focus on regaining function with the use of assistive devices and gain strength while focusing on nutrition and supportive care in order to return back to independent living with spouse The patient/family has a good understanding of our discharge process and will benefit from an interdisciplinary inpatient rehabilitation program. The patient has potential to make improvement and is in need of at least two of the following multidisciplinary therapies including but not limited to physical, occupational, speech, and prosthetics and orthotics. Additionally the patient will need services from respiratory, nutritional services, wound care, psychology, etc. (Customize this to each patient). Given the patients complex condition and risk of further medical complications, rehabilitation services cannot be safely or effectively provided at a lower level of care such as a correction facility. BARRIERS TO DISCHARGE: Despondency ESTIMATED LOS: 7 days DISPOSITION: Home with spouse RELEVANT CHANGES SINCE PREADMISSION SCREENING: I have compared the patients medical and functional status at the time of the preadmission screening and there are: no changes PROGNOSIS: Fair REHABILITATION GOALS: 1. PT and OT will focus on regaining function with the use of assistive devices and gain strength while focusing on nutrition and supportive care in order to return back to independent living with spouse All the above goals were reviewed with the patient and he/she is in agreement. By signing this document, I acknowledge that I have personally performed a full physical examination on this patient within 24 hours of admission to this inpatient rehabilitation facility and have determined the patient to be able to tolerate the above course of treatment at an intensive level for a reasonable period of time. I will be completing a detailed individualized Plan of Care for this patient by day #4 of the patients stay based upon the Preadmission Screen, the Post-Admission Evaluation, and the therapy evaluations. Admission Dx/Comorbidities: (1) Right humeral fracture Status: Acute ICD Codes: S42.301A - Unspecified fracture of shaft of humerus, right arm, initial encounter for closed fracture (2) Debility, unspecified Status: Acute ICD Codes: R53.81 - Other malaise (3) Physical debility Status: Acute ICD Codes: R53.81 - Other malaise Assessment/Plan Assessment and Plan Assess & Plan/Chief Complaint Assessment: Right humerus fracture status post uncomplicated repair Slow recovery with physical debility 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 Chronic kidney disease Diabetes Current hypoglycemia will hold all diabetic meds Severe oversedation with baclofen Severe LENNY on BiPAP Poor appetite Osteoarthritis Anemia Plan: Gentle IV fluids of D5 NS Hold all diabetic meds Supportive care Use BiPAP LINDSAY KRUSE DO October 27, 2021 11:41
[2021-10-27] MEDS ORDERED: LOPERAMIDE 2 MG (IMODIUM) TABLET PO PRN (11:45)
[2021-10-27] MEDS ORDERED: NS IV 1000 ML 1,000 ML IV SCH (11:45)
[2021-10-27] MEDS ORDERED: MELATONIN 3 MG TABLET PO PRN (11:45)
[2021-10-27] MEDS ORDERED: LACTULOSE SYRUP 10GM/15ML (ENULOSE) 30ML UDC PO PRN (11:45)
[2021-10-27] MEDS ORDERED: DOCUSATE SODIUM 100 MG (COLACE) CAP PO PRN (11:45)
[2021-10-27] MEDS ORDERED: ONDANSETRON 4 MG (ZOFRAN) ORAL DISSOLVE TAB PO PRN (11:45)
[2021-10-27] MEDS ORDERED: CALCIUM CARBONATE 500 MG (TUMS) TAB.CHEW PO PRN (11:45)
[2021-10-27] MEDS ORDERED: ALPRAZolam 0.25 MG (XANAX) TAB PO PRN (11:45)
[2021-10-27] MEDS ORDERED: guaiFENesin/CODEINE (ROBITUSSIN AC) 10ML UDC PO PRN (11:45)
[2021-10-27] MEDS ORDERED: BISACODYL 10 MG SUPP (DULCOLAX) PR PRN (11:45)
[2021-10-27] MEDS ORDERED: FLEET ENEMA ADULT 1 EA BTL PR PRN (11:45)
[2021-10-27] MEDS ORDERED: diphenhydrAMINE 25 MG TAB (BENADRYL) PO PRN (11:45)
[2021-10-27 12:18] LABS: BASOPHILS % (AUTO) 0 % (0-10); EOSINOPHILS # (AUTO) 0.1 10^3/uL (0.0-0.3); EOSINOPHILS % (AUTO) 1 % (0-10); HEMATOCRIT 25 % (35-52); HEMOGLOBIN 8.2 g/dL (11.5-16.0); LYMPHOCYTES # (AUTO) 1.3 10^3/uL (1.0-4.0); LYMPHOCYTES % (AUTO) 14 % (12-44); MEAN CORPUSCULAR HEMOGLOBIN 29 pg (25-34); MEAN CORPUSCULAR HGB CONC 33 g/dL (32-36); MEAN CORPUSCULAR VOLUME 88 fL (80-99); MEAN PLATELET VOLUME 10.3 fL (9.0-12.2); MONOCYTES # (AUTO) 0.8 10^3/uL (0.0-1.0); MONOCYTES % (AUTO) 9 % (0-12); NEUTROPHILS # (AUTO) 7.5 10^3/uL (1.8-7.8); NEUTROPHILS % (AUTO) 77 % (42-75); PLATELET COUNT 219 10^3/uL (130-400); WHITE BLOOD COUNT 9.8 10^3/uL (4.3-11.0)
[2021-10-27 12:30] LABS: ALBUMIN 3.5 GM/DL (3.2-4.5)
[2021-10-27 12:31] LABS: POTASSIUM 3.9 MMOL/L (3.6-5.0)
[2021-10-27 12:32] LABS: CALCIUM 9.1 MG/DL (8.5-10.1)
[2021-10-27 12:33] LABS: TOTAL PROTEIN 6.3 GM/DL (6.4-8.2)
[2021-10-27 12:35] LABS: BILIRUBIN,TOTAL 0.6 MG/DL (0.1-1.0)
[2021-10-27 12:37] LABS: CREATININE SERUM 1.61 MG/DL (0.60-1.30)
--- NOTE | 2021-10-27 12:43 | Speech Therapy Progress Note ---
Therapy Progress Note Speech Pathology: Speech pathology attempted the cognitive linguistic evaluation at 1205. At this time, the patient remains in bed, lying down with eyes closed. The patient will respond to her name by opening her eyes, however, quickly returns to rest (eyes closed). The clinician attempted orientation questions, however, the patient continues to respond with the answer of "Sunday" regardless of the question asked (year, month, location). Intermittently, the patient does not provide a response to the orientation questions with provided clinician verbal repetition. Speech pathology will re-attempt the evaluation with appropriate alertness levels. GISELE TURNER October 27, 2021 12:43
[2021-10-27] MEDS: GABAPENTIN 600 MG (NEURONTIN) TAB PO SCH ×2 (13:11→21:14)
--- NOTE | 2021-10-27 13:11 | Physical Therapy Evaluation ---
PT Evaluation-General Medical Diagnosis Admission Date October 27, 2021 at 11:30 Medical Diagnosis: right total shoulder Onset Date: October 27, 2021 Therapy Diagnosis Therapy Diagnosis: impaired mobility, strength, endurance Precautions Precautions/Isolations: Fall Prevention, Standard Precautions, Pressure Ulcer Weight Bear Status NWB right shoulder, sling on Referral Physician: Juliane Cantor DO Reason for Referral: Evaluation/Treatment Medical History Pertinent Medical History: CVA, DM Reviewed History: Yes Social History Home: Single Level Current Living Status: Spouse Entry Into Home: Ramp Prior Prior Level of Function SCALE: Activities may be completed with or without assistive devices. 1-Fkzbvhtqcq-crqunou completes the activity by him/herself with no assistance from a helper. 5-Set-up or Clean-up Assistance-helper sets up or cleans up; patient completes activity. [place] assists only prior to or following the activity. 4-Supervision or Touching Assistance-helper provides verbal cues and/or touching/steadying and/or contact guard assistance as patient completes activity. Assistance may be provided throughout the activity or intermittently. 3-Partial/Moderate Assistance-helper does LESS THAN HALF the effort. [place] lift s, holds or supports trunk or limbs, but provides less than half the effort. 2-Substantial/Maximal Assistance-helper does MORE THAN HALF the effort. [place] lifts or holds trunk or limbs and provides more than half the effort. 3-Qudownzyl-cfnilw does ALL the effort. Patient does none of the effort to complete the activity. Or, the assistance of 2 or more helpers is required for the patient to complete the activity. If activity was not attempted, code reason: 7-Patient Refused. 9-Not Applicable-not attempted and the patient did not perform the activity before the current illness, exacerbation or injury. 10-Not Attempted due to Environmental Limitations-(lack of equipment, weather restraints, etc.). 88-Not Attempted due to Medical Conditions or Safety Concerns. Bed Mobility: 6 Transfers (B,C,W/C): 6 Gait: 6 Indoor Mobility (Ambulation): Independent Neither patient or could give a clear answer on whether the patient used an assistive device to ambulate previously. PT Evaluation-Current Subjective Patient in family transport pre tx, agrees to PT, states she has no pain at rest but severe pain in right shoulder with movement. Pt/Family Goals none stated Objective Patient Orientation: Person, Confused ROM/Strength ROM Lower Extremities WNL Strength Lower Extremities grossly 4/5 BLE Sensory Hearing: Impaired Sensation Right Lower Extremit: Intact Sensation Left Lower Extremity: Intact Transfers Roll Left & Right (QC): 3 Sit to Lying (QC): 3 Lying to Sitting/Side of Bed(Q: 3 Sit to Stand (QC): 3 Chair/Gxd-zl-Tslet Xfer(QC): 3 Toilet Transfer (QC): 3 Car Transfer (QC): 3 Patient performs rolling and supine <-> sit with mod assist, sit <-> stand and stand pivot transfer min assist, car transfer min assist. Patient needs some guiding with tactile cues, cues for safety and positioning. Gait Does the Patient Walk?: Yes Mode of Locomotion: Walk Anticipated Mode of Locomotion: Walk Walk 10 feet (QC): 88 Walk 50 ft with 2 Turns(QC): 88 Walk 150 ft (QC): 88 Walking 10ft/uneven surface-QC: 88 Distance: 5' Gait Assistive Device: Handheld Assist Comments/Gait Description Patient ambulated 5' with SAFETY RISK LEAD with min assist. Very unsteady ambulation. Wheelchair Training Wheel 50 ft with 2 turns (QC): 1 Wheel 150 ft (QC): 1 Stairs 1 Step (curb) (QC): 88 4 Steps (QC): 88 12 Steps (QC): 88 Balance Sitting Static: Fair Sitting Dynamic: Fair Standing Static: Poor Standing Dynamic: Poor Picking up an Object (QC): 88 Assessment/Needs Patient in bed post tx with nurse call, phone, tray, bed alarm on. Patient has impaired mobility, strength , endurance. Patient is very confused, states she lives with her father. Patient states she feels very bad and is having trouble breathing. She sounds like she is having trouble breathing but her O2 sat is 99%. Patient doesn't like to open her eyes, and is tearful. She also seems ve ry fatigued. Nurse in room and is aware of all of this. Rehab Potential: Guarded PT Short Term Goals Short Term Goals Time Frame: November 03, 2021 Roll Left & Right: 4 Sit to lyin (Sara) Lying to sitting on side of be: 3 (Sara) Sit to stand: 4 (CGA) Chair/fyt-qc-rzjkj transfer: 4 (CGA) Walk 10 feet: 4 (CGA) Walk 50 feet with two turns: 4 (CGA) PT Mcc Goals Presentation Designer Goals PT Mcc Goals Time Frame: Nov 17, 2021 Roll Left & Right (QC): 6 Sit to Lying (QC): 4 (CGA) Lying-Sitting on Side/Bed(QC): 4 (CGA) Sit to Stand (QC): 4 (SBA) Chair/Yxg-ya-Fczdv Xfer(QC): 4 (SBA) Toilet Transfer (QC): 4 (SBA) Car Transfer (QC): 4 (SBA) Does the Patient Walk: Yes Walk 10 feet (QC): 4 (SBA) Walk 50ft with 2 Turns (QC): 4 (SBA) Walk 150 ft (QC): 4 (SBA) Walking 10ft on Uneven Surface: 4 (SBA) 1 Step (curb) (QC): 4 (CGA) 4 Steps (QC): 88 12 Steps (QC): 88 Picking up an Object (QC): 4 (SA with kiln remover) Wheel 50 feet with 2 turns (QC: 9 Wheel 150 feet: 9 PT Plan Problem List Problem List: Activity Tolerance, Functional Strength, Safety, Balance, Gait, Transfer, Bed Mobility, ROM Treatment/Plan Treatment Plan: Continue Plan of Care Treatment Plan: Bed Mobility, Education, Functional Activity Kobe, Functional Strength, Group Therapy, Gait, Safety, Therapeutic Exercise, Transfers Treatment Duration: Nov 17, 2021 Frequency: At least 5 of 7 days/Wk (IRF) Estimated Hrs Per Day: 1.5 hours per day Patient and/or Family Agrees t: Yes Safety Risks/Education Patient Education: Gait Training, Transfer Techniques, Reviewed Precautions, Correct Positioning, Safety Issues Teaching Recipient: Patient Teaching Methods: Demonstration, Discussion Response to Teaching: Reinforcement Needed Discharge Recommendations Plan Patient will perform bed mobility and transfer training, balance and endurance training, functional strengthening, stair training, gait training ,and education, to improve functional mobility and independence at home. Therapy Discharge Recommendati: Scheduled Assistance, Home & Family, Post Acute PT Time/GCodes Time In: 1130 Time Out: 1200 Total Billed Treatment Time: 30 Total Billed Treatment 1 visit EVKarla 15' FA 15' TASHA PLAZA PT October 27, 2021 13:11
[2021-10-27] MEDS: ENOXAPARIN 40 MG/0.4 ML (LOVENOX) SYR SC SCH (13:12)
--- NOTE | 2021-10-27 14:26 | Physical Therapy Daily Note ---
PT Daily Note-Current Subjective Patient is very lethargic and listless. Spouse present. Patient was co-treated with OT today due to excessive balance deficits, safety concerns, and risk of falling, and to coordinate UE activities with LE movements, standing balance, and transfers. Mental Status Patient Orientation: Confused Transfers SCALE: Activities may be completed with or without assistive devices. 5-Kvpuqvlnjx-edutler completes the activity by him/herself with no assistance from a helper. 5-Set-up or Clean-up Assistance-helper sets up or cleans up; patient completes activity. [place] assists only prior to or following the activity. 4-Supervision or Touching Assistance-helper provides verbal cues and/or touching/steadying and/or contact guard assistance as patient completes activity. Assistance may be provided throughout the activity or intermittently. 3-Partial/Moderate Assistance-helper does LESS THAN HALF the effort. [place] lifts, holds or supports trunk or limbs, but provides less than half the effort. 2-Substantial/Maximal Assistance-helper does MORE THAN HALF the effort. [place] lifts or holds trunk or limbs and provides more than half the effort. 5-Vbjzaimkj-qgjfsn does ALL the effort. Patient does none of the effort to complete the activity. Or, the assistance of 2 or more helpers is required for the patient to complete the activity. If activity was not attempted, code reason: 7-Patient Refused. 9-Not Applicable-not attempted and the patient did not perform the activity before the current illness, exacerbation or injury. 10-Not Attempted due to Environmental Limitations-(lack of equipment, weather restraints, etc.). 88-Not Attempted due to Medical Conditions or Safety Concerns. Sit to Stand (QC): 3 Weight Bearing NWB right shoulder, sling on Gait Training Distance: 150' x 4 Walk 10 feet (QC): 4 Walk 50 ft with 2 Turns(QC): 4 Walk 150 ft (QC): 4 Gait Assistive Device: Cane Small Base Quad slightly unsteady gait sequence/balance deficit with PT correct (CGA) Exercises Seated Therapy Exercises: Ankle pumps, Long arc quads, Hip flexion Seated Reps: 15 Treatments Patient was co-treated with OT today due to excessive balance deficits, safety concerns, and risk of falling, and to coordinate UE activities with LE movements, standing balance, and transfers. Assessment Patient requires time and redirection to complete all functional tasks. Patient continued to be lethargic and listless during session. PT Short Term Goals Short Term Goals Time Frame: November 03, 2021 Roll Left & Right: 4 Sit to lyin (Sara) Lying to sitting on side of be: 3 (Sara) Sit to stand: 4 (CGA) Chair/qxf-vu-quopm transfer: 4 (CGA) Walk 10 feet: 4 (CGA) Walk 50 feet with two turns: 4 (CGA) PT Maritime Pilot Goals Fdc Goals PT Maritime Pilot Goals Time Frame: Nov 17, 2021 Roll Left & Right (QC): 6 Sit to Lying (QC): 4 (CGA) Lying-Sitting on Side/Bed(QC): 4 (CGA) Sit to Stand (QC): 4 (SBA) Chair/Qeh-ws-Irvxj Xfer(QC): 4 (SBA) Toilet Transfer (QC): 4 (SBA) Car Transfer (QC): 4 (SBA) Does the Patient Walk: Yes Walk 10 feet (QC): 4 (SBA) Walk 50ft with 2 Turns (QC): 4 (SBA) Walk 150 ft (QC): 4 (SBA) Walking 10ft on Uneven Surface: 4 (SBA) 1 Step (curb) (QC): 4 (CGA) 4 Steps (QC): 88 12 Steps (QC): 88 Picking up an Object (QC): 4 (SA with rn night) Wheel 50 feet with 2 turns (QC: 9 Wheel 150 feet: 9 PT Plan Treatment/Plan Treatment Plan: Continue Plan of Care Treatment Plan: Bed Mobility, Education, Functional Activity Kobe, Functional Strength, Group Therapy, Gait, Safety, Therapeutic Exercise, Transfers Treatment Duration: Nov 17, 2021 Frequency: At least 5 of 7 days/Wk (IRF) Estimated Hrs Per Day: 1.5 hours per day Patient and/or Family Agrees t: Yes Time/GCodes Time In: 1320 Time Out: 1420 Total Billed Treatment Time: 60 Total Billed Treatment 1 visit EX 15 min FA 15 min GT x 2 30 min MARY RIBEIRO PT October 27, 2021 14:26
--- NOTE | 2021-10-27 14:35 | Occupational Therapy Eval ---
OT Evaluation-General/PLF Medical Diagnosis Admission Date October 27, 2021 at 11:30 Medical Diagnosis: right total shoulder Onset Date: October 27, 2021 Therapy Diagnosis Therapy Diagnosis: reduced adl status, cognition Precautions Precautions/Isolations: Fall Prevention, Standard Precautions, Pressure Ulcer Weight Bear Status Weight Bearing Restriction: Non Weight Bearing Location Restriction: R UE Referral Physician: Juliane Cantor DO Referral Reason: Evaluation/Treatment Medical History Pertinent Medical History: CVA, DM Current History Per patient, she fell on 08/16/21 resulting in a humerus fx, However, she was unable to be scheduled for surgery until 10/24/21. She was in a sling for 2 months and received assist with adls. Pt reports only wearing hospital/maternity gowns in order to work around sling. Prior to fall, pt was indep with adls, cooking and laundry. She lives in a 3 story home with her spouse who manages the cleaning and transportation. Still unsure if pt was using any AD for mobility. Reviewed History: Yes Social History Home: Single Level Current Living Status: Spouse Entry Into Home: Ramp ADL-Prior Level of Function SCALE: Activities may be completed with or without assistive devices. 9-Tuhrzrjulw-zbepxko completes the activity by him/herself with no assistance from a helper. 5-Set-up or Clean-up Assistance-helper sets up or cleans up; patient completes activity. Kake assists only prior to or following the activity. 4-Supervision or Touching Assistance-helper provides verbal cues and/or touching/steadying and/or contact guard assistance as patient completes activity. Assistance may be provided throughout the activity or intermittently. 3-Partial/Moderate Assistance-helper does LESS THAN HALF the effort. Kake lifts, holds or supports trunk or limbs, but provides less than half the effort. 2-Substantial/Maximal Assistance-helper does MORE THAN HALF the effort. Kake lifts or holds trunk or limbs and provides more than half the effort. 2-Rppbruchj-vfpoma does ALL the effort. Patient does none of the effort to complete the activity. Or, the assistance of 2 or more helpers is required for the patient to complete the activity. If activity was not attempted, code reason: 7-Patient Refused. 9-Not Applicable-not attempted and the patient did not perform the activity before the current illness, exacerbation or injury. 10-Not Attempted due to Environmental Limitations-(lack of equipment, weather restraints, etc.). 88-Not Attempted due to Medical Conditions or Safety Concerns. Self Care: Independent Functional Cognition: Unknown Drive Self: No OT Current Status Subjective Pt lethargic, perseverates on random topics throughout session. Co-treat with PT today due to excessive balance deficits, safety concerns, fatigue, high fall risk, and due to need of 2 skilled clinicians to progress indep and safety with adls and mobility. Appearance Pt returned to sitting in recliner, all needs within reach. Mental Status/Objective Patient Orientation: Person, Listless Attachments: IV, Other-See Comments (RUE sling) Current Glasses/Contacts: Yes (readers) Hearing Aids: No Dentures/Partials: No Hand Dominance: Right Upper Extremity ROM RUE in sling, guarded to use fingers/wrist. LUE shoulder flexion, ~ 150 degrees, elbow-distally WNL ADL-Treatment Eating (QC): 3 Oral Hygiene (QC): 3 Shower/Bathe Self (QC): 2 Upper Body Dressing (QC): 1 Lower Body Dressing (QC): 2 On/Off Footwear (QC): 3 Toileting Hygiene (QC): 3 Ample amount of time and redirection to complete all functional tasks. Patient lethargic, tearful, listless, and confused throughout session. She expresses difficulty concentrating and word finding. Sponge bath performed seated in chair. Max cues and time to initiate washing all body parts. Pt unable to follow simple verbal and visual cues, thus needing tactile cues and physical assistance. Pt able to wash chest and upper thighs only. Pt often crying but d oes not give reasoning. When asked about pain, pt verbalizes "yes" but then does not want to take any medication. Gown and sling re-donned, assist with all steps. Mod a needed to thread LLE into brief secondary to difficulty reaching with L hand. Pt able to stand and perform marco care with steading assist post cues to initiate. Assistance required to pull brief over R hip. Mod a to don socks over toes, pt able to pull up over heel. Oral care completed in sitting. Post instruction on shukri technique and squeezing toothpaste directly into mouth, max a needed as pt attempted to brush teeth with toothpaste tube. HOHA also needed to squeeze toothpaste into mouth due to poor associate professor of education strength. Pt was then able to brush all quadrants of mouth with toothbrush but needed cues for spitting and rinsing. She ambulated around unit, ~150 feet x4 with use of cane and min a. Unsteady at times, cues for safety and keeping eyes open throughout gait. Education OT Patient Education: Correct positioning, Energy conservation, Modified ADL techniques, Purpose of tx/functional activities, Rehab process, Safety issues, Transfer techniques Teaching Recipient: Patient, Family Teaching Methods: Demonstration, Discussion Response to Teaching: Reinforcement Needed OT Short Term Goals Short Term Goals Time Frame: November 10, 2021 Eatin Oral hygiene: 4 Toileting hygiene: 4 Shower/bathe self: 3 Upper body dressin Lower body dressin Putting on/taking off footwear: 3 OT Client Services Account Manager Goals Client Services Account Manager Goals Time Frame: Nov 24, 2021 Eating (QC): 5 Oral Hygiene (QC): 5 Toileting Hygiene (QC): 6 Shower/Bathe Self (QC): 4 Upper Body Dressing (QC): 4 Lower Body Dressing (QC): 5 On/Off Footwear (QC): 5 1=Demonstrate adherence to instructed precautions during ADL tasks. 2=Patient will verbalize/demonstrate understanding of assistive devices/modifications for ADL. 3=Patient will improve strength/tolerance for activity to enable patient to perform ADL's. OT Education/Plan Problem List/Assessment Assessment: Decreased Activ Tolerance, Decreased Safety Aware, Decreased UE Strength, Impaired Cognition, Impaired Coordination, Impaired Funct Balance, Impaired I ADL's, Impaired Self-Care Skills, Restricted Funct UE ROM Discharge Recommendations Plan/Recommendations: Continue POC Therapy Discharge Recommendati: Post Acute OT Treatment Plan/Plan of Care Treatment,Training & Education: Yes Patient would benefit from OT for education, treatment and training to promote independence in ADL's, mobility, safety and/or upper extremity function for ADL's. Plan of Care: ADL Retraining, Cognitive Retraining, Functional Mobility, Group Exercise/Act as Ind, UE Funct Exercise/Act Treatment Duration: Nov 24, 2021 Frequency: At least 5 of 7 days/Wk (IRF) Estimated Hrs Per Day: 1.5 hours per day (75-90 min/day) Rehab Potential: Guarded Time/GCodes Start Time: 13:10 Stop Time: 14:40 Total Time Billed (hr/min): 90 Billed Treatment Time 1 visit EVH (10 min) ADL x3 (45 min) FA x2 (35 min) OT eval: [id number], Co-treat from [id number], OT treatment: [id number] Teressa Ventura OT October 27, 2021 14:35
[2021-10-27] MEDS: ACETAMINOPHEN 325 MG TABLET PO PRN ×2 (14:40→22:10)
--- NOTE | 2021-10-27 15:01 | Diagnostic Imaging Report ---
INDICATION: Dyspnea. Comparison is made with prior exam of 07/07/2020. FINDINGS: The heart size, mediastinal configuration, and pulmonary vascularity are within normal limits. There is no pleural effusion, pneumothorax, or pneumonia. The osseous structures are unremarkable. IMPRESSION: No acute cardiopulmonary abnormality. Dictated by: Dictated on workstation # [id number]
[2021-10-27] MEDS: inSUlin ASPART (NovoLOG) 1 UNIT/0.01 ML (CHARGE PER UNIT) SC SCH ×2 (15:39→21:14)
[2021-10-27 20:46] VITALS: BP 130/77
[2021-10-27] MEDS ORDERED: OMEPRAZOLE 20 MG (PriLOSEC) CAP NON-FORMULARY PO SCH (21:00)
[2021-10-27] MEDS ORDERED: NON-FORMULARY MEDICATION 1 EA EA (Metoprolol Tartrate 100 MG) PO SCH (21:00)
[2021-10-27] MEDS ORDERED: NON-FORMULARY MEDICATION 1 EA EA (Cholecalciferol (Vitamin D3) (Vitamin D3) 50 MCG) PO SCH (21:00)
[2021-10-27] MEDS: PANTOPRAZOLE 20 MG TABLET (PROTONIX) PO SCH (21:14)
[2021-10-27] MEDS: polyethylene glycoL POWDER 17 GM (MIRALAX) PACK PO SCH (21:14)
[2021-10-27] MEDS: FERROUS SULF 325 MG (IRON) TAB PO SCH (21:14)
[2021-10-27] MEDS: rOPINIRole 1 MG (REQUIP) TABLET PO SCH (21:14)
[2021-10-27] MEDS: VITAMIN D3 25 MCG (1,000 UNITS) TABLET PO SCH (21:14)
[2021-10-27] MEDS: DOCUSATE SODIUM 100 MG (COLACE) CAP PO SCH (21:14)
[2021-10-27] MEDS: meTOprolol TARTRATE 50 MG (LOPRESSOR) TAB PO SCH (21:14)
[2021-10-27] MEDS: SENNA W/DOCUSATE (SENOKOT S) TABLET PO SCH (21:15)
[2021-10-27] MEDS: D5 NS 1000 ML IV SOLUTION 1,000 ML IV SCH (22:08)
[2021-10-28] MEDS: HYDROcodone/APAP 7.5 MG/325 MG (LORTAB, LORCET PLUS) TABLET PO PRN ×3 (01:48→18:07)
[2021-10-28 05:40] LABS: BASOPHILS % (AUTO) 1 % (0-10); EOSINOPHILS # (AUTO) 0.1 10^3/uL (0.0-0.3); EOSINOPHILS % (AUTO) 2 % (0-10); HEMATOCRIT 21 % (35-52); LYMPHOCYTES # (AUTO) 1.3 10^3/uL (1.0-4.0); LYMPHOCYTES % (AUTO) 22 % (12-44); MEAN CORPUSCULAR HEMOGLOBIN 29 pg (25-34); MEAN CORPUSCULAR HGB CONC 32 g/dL (32-36); MEAN CORPUSCULAR VOLUME 90 fL (80-99); MEAN PLATELET VOLUME 10.2 fL (9.0-12.2); MONOCYTES # (AUTO) 0.5 10^3/uL (0.0-1.0); MONOCYTES % (AUTO) 10 % (0-12); NEUTROPHILS # (AUTO) 3.7 10^3/uL (1.8-7.8); NEUTROPHILS % (AUTO) 65 % (42-75); PLATELET COUNT 162 10^3/uL (130-400); WHITE BLOOD COUNT 5.7 10^3/uL (4.3-11.0)
[2021-10-28 05:48] LABS: HEMOGLOBIN 6.7 g/dL (11.5-16.0)
[2021-10-28 05:59] LABS: ALBUMIN 2.9 GM/DL (3.2-4.5); POTASSIUM 3.1 MMOL/L (3.6-5.0)
--- NOTE | 2021-10-28 06:00 | Individualized Plan of Care ---
Individualized Plan of Care Rehab Nursing IPOC Order Admission Date October 27, 2021 at 11:30 Current Orders Orders Admission Order(Inpt,Obs,Sdc) (10/27/21:34) Vital Signs: Per Unit Policy ( 08,16,00 (10/27/21 11:34) Sean Thomas , (10/27/21 11:34) Sequential Compression Device (10/27/21:34) Steam Press Operator-Inpt Rehab Con (10/27/21:34) Rehab Nursing Orders-Ipoc (10/27/21 11:34) Physical Therapy Rehab Orders (10/27/21:34) Occupational Therapy Rehab Ord (10/27/21:34) Speech Therapy Rehab Orders (10/27/21:) Cbc With Automated Diff (10/28/21 06:00) Comprehensive Metabolic Panel (10/28/21 06:00) Precautions (Aru) (10/27/21:34) Weekly Weight WEEK (10/27/21:34) Rehab-Intensity Of Therapy (10/27/21:34) Initiate Admission Nursing Pro .admission (10/27/21 11:34) Alprazolam Tablet (Xanax Tablet) (10/27/21 11:45) Calcium Carbonate Chew Tablet (Antacid C (10/27/21 11:45) Diphenhydramine Tablet (Benadryl Tablet) (10/27/21 11:45) Docusate Sodium Capsule (Colace Capsule) (10/27/21 21:00) Docusate Sodium Capsule (Colace Capsule) (10/27/21 11:45) Bisacodyl Suppository (Dulcolax Supposit (10/27/21 11:45) Lactulose Oral Solution (Enulose Oral So (10/27/21 11:45) Na Phos/Na Biphos Enema (Fleet Enema Gregorio (10/27/21 11:45) Guaifenesin/Codeine Syrup (Robitussin Ac (10/27/21 11:45) Loperamide Tablet (Imodium Tablet) (10/27/21 11:45) Enoxaparin Injection (Lovenox Injection) (10/27/21 11:45) Melatonin Tablet (Melatonin Tablet) (10/27/21 11:45) Polyethylene Glycol Powder Pkt (Miralax (10/27/21 21:00) Ondansetron Oral Dissolve Tab (Zofran (10/27/21 11:45) Senna S Tablet (Senokot S Tablet) (10/27/21 21:00) Acetaminophen Tablet/Caplet (Tylenol T (10/27/21 11:45) Code/Resuscitation (10/27/21 11:34) Admission Arrival Bed Request (10/27/21 11:42) Cbc With Automated Diff (10/27/21 11:42) Comprehensive Metabolic Panel (10/27/21 11:42) Lactic Acid Analyzer (10/27/21 11:42) Procalcitonin (Pct) (10/27/21 11:42) Chest 1 View, Ap/Pa Only (10/27/21 11:42) Ns Iv 1000 Ml (Sodium Chloride 0.9%) (10/27/21 11:45) Accucheck Achs ACHS (10/27/21 11:49) Patient Visit (10/27/21 ) Atorvastatin Tablet (Lipitor Tablet) (10/27/21 21:00) Cetirizine (Non-Formulary) (Zyrtec (Non- (10/28/21 09:00) Cyanocobalamin Tablet (Vitamin B-12 Tabl (10/28/21 09:00) Ferrous Sulfate Tablet (Feosol Tablet) (10/27/21 21:00) Gabapentin Capsule/Tablet (Neurontin Cap (10/27/21 13:00) Hydrocodone/Apap 7.5/325 Tab (Lortab 7. (10/27/21 12:30) Levothyroxine Tablet (Synthroid Tablet) (10/28/21 06:30) Omeprazole (Non-Formulary) (Prilosec (No (10/27/21 21:00) Potassium Chloride (Tablet) (Klor Con Ta (10/28/21 08:00) Ropinirole Tablet (Requip Tablet) (10/27/21 21:00) (Nf) Cholecalciferol (Vitamin D3) (Vitam (10/27/21 21:00) (Nf) Fluticasone Propionate (Flonase All (10/28/21 09:00) (Nf) Metoprolol Tartrate (10/27/21 21:00) Accucheck Achs ACHS (10/27/21 12:25) Insulin Aspart (Novolog) (Novolog (Charg (10/27/21 16:00) Pantoprazole Tablet (Protonix Tablet) (10/27/21 21:00) Metoprolol Tartrate (Ir) Tab (Lopressor (10/27/21 21:00) Loratadine Tablet (Claritin Tablet) (10/28/21 09:00) Fluticasone Nasal Dixon (Flonase Nasal S (10/28/21 09:00) Cholecalciferol Capsule/Tablet (Vitamin (10/27/21 21:00) General/Regular (10/27/21 Lunch) Patient Visit (10/27/21 ) Pt Eval Moderate Complexity (10/27/21 ) Functional Activities, Ea 15 (10/27/21 ) Patient Visit (10/27/21 ) Exercise Therap, Ea 15 Min (10/27/21 ) Gait Training, Ea 15 Min (10/27/21 ) Functional Activities, Ea 15 (10/27/21 ) Follow-Up Appointment D/C (10/27/21 15:36) Rt Request For Service (10/27/21 17:54) Nursing Communication (Order) (10/27/21 18:41) D5 Ns 1000 Ml Iv Solution (Dextrose 5%/0 (10/27/21 21:30) Iron Tibc %Sat & Ferritin (10/27/21 21:21) Vitamin B 12 (10/27/21 21:21) Vital Signs: Special (Order) (10/28/21 06:02) Consent-Obtain Consent For (10/28/21 06:02) Monitor S/S Transfusion Reacti (10/28/21 06:02) Type And Screen (10/28/21 06:02) Red Cells Leukocytes Reduced (10/28/21 06:02) Potassium Cl 10meq/50ml Ivpb (Kcl 10 Meq (10/28/21 06:15) Magnesium (10/28/21 06:03) Magnesium 1 Gm/100 Ml Ivpb (Magnesium Mahmood (10/28/21 06:15) Venous Access Request Order (10/28/21 06:52) Ns Iv 500 Ml (Sodium Chloride 0.9%) (10/28/21 08:30) Fluticasone Nasal Dixon (Flonase Nasal S (10/28/21 21:00) Patient Visit (10/28/21 ) Functional Activities, Ea 15 (10/28/21 ) Exercise Therap, Ea 15 Min (10/28/21 ) Gait Training, Ea 15 Min (10/28/21 ) Rehab Nursing Orders: Ongoing Assess. of Cognitive Status, Ongoing Assess. of Function Status, Bladder Management, Bladder Scan, Bladder Training, Bowel Management, Bowel Training, Disease Management & Educaiton, DVT Prophylaxis, Fall Prevention, Fluid/Electrolyte/Nutrition Mgmt, Infection Prevention, Medication Management & Education, Management of Risks & Complications, Management of Skin Intergrity, Nutrition Management, Pain Management, Patient/Family Support, Safety Management Intensity of Therapy to be met Patient to be seen: Min.3h per day/5 of 7d PT IPOC Problem List: Activity Tolerance, Functional Strength, Safety, Balance, Gait, Transfer, Bed Mobility, ROM Treatment Plan: Continue Plan of Care Bed Mobility, Education, Functional Activity Kobe, Functional Strength, Group Therapy, Gait, Safety, Therapeutic Exercise, Transfers Treatment Duration: Nov 17, 2021 Frequency: At least 5 of 7 days/Wk (IRF) Estimated Hrs Per Day: 1.5 hours per day OT IPOC Problems: Decreased Activ Tolerance, Decreased Safety Aware, Decreased UE Strength, Impaired Cognition, Impaired Coordination, Impaired Funct Balance, Impaired I ADL's, Impaired Self-Care Skills, Restricted Funct UE ROM OT Treatment, Training and Edu: Yes Plan of Care: ADL Retraining, Cognitive Retraining, Functional Mobility, Group Exercise/Act as Ind, UE Funct Exercise/Act Treatment Duration: Nov 24, 2021 Frequency: At least 5 of 7 days/Wk (IRF) Estimated Hrs Per Day: 1.5 hours per day (75-90 min/day) ST IPOC Speech Therapy Treatment Plan: Continue Plan of Care Treatment Duration: October 28, 2021 Frequency: Modified Program (IRF) Estimated Hrs Per Day: Other Steam Press Operator/Case Mgmt Steam Press Operator/Case Managemen: Discharge Planning Dietitian/Dance Professor Dietitian/Dance Professor to monitor nutritional status and make changes and/or recommendations as needed and work with speech pathology on dietary upgrades as the occur. 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
--- NOTE | 2021-10-28 06:00 | PM&R Progress Note ---
Subjective HPI/CC On Admission Date Seen by Provider: October 28, 2021 Time Seen by Provider: 10:00 Subjective/Events-last exam 10/28/2021: Pt is dramatically improved Hemoglobin was 6.7, receiving one unit of blood No midline will be available because of history of breast cancer on the left with lymph node removal. High risk for lymphadenitis and on the right is the humerus fracture. Having a bowel movement now Potassium supplement also Review of Systems General: Fatigue, Malaise Musculoskeletal: arm pain Neurological: Weakness Focused Exam Lactate Level 10/27/21 12:05: Lactic Acid Level 1.07 Objective Exam Vital Signs Vital Signs Date Time Temp Pulse Resp B/P (MAP) Pulse Ox O2 Delivery O2 Flow Rate FiO2 10/28/21 12:16 36.8 64 18 157/67 94 Room Air Capillary Refill : General Appearance: WD/WN, Anxious, Chronically ill, Mild Distress HEENT: PERRL/EOMI, Normal ENT Inspection, Pharynx Normal Neck: Full Range of Motion, Normal Inspection, Non Tender, Supple, Carotid Bruit Respiratory: Chest Non Tender, Lungs Clear, Normal Breath Sounds, No Accessory Muscle Use, No Respiratory Distress Cardiovascular: Regular Rate, Rhythm, No Edema, No Gallop, No JVD, No Murmur, Normal Peripheral Pulses Gastrointestinal: Normal Bowel Sounds, No Organomegaly, No Pulsatile Mass, Non Tender, Soft Back: Normal Inspection, No CVA Tenderness, No Vertebral Tenderness Extremity: Normal Capillary Refill, Normal Inspection, Normal Range of Motion (Except right arm in sling), Non Tender, No Calf Tenderness, No Pedal Edema Neurologic/Psychiatric: Alert, Oriented x3, No Motor/Sensory Deficits, Normal Mood/Affect, curator of collections II-XII Norm as Tested, Abnormal Gait, Depressed Affect, Motor Weakness (Generalized) Skin: Normal Color, Warm/Dry Lymphatic: No Adenopathy Results/Procedures Lab Laboratory Tests 10/28/21 05:20 Patient resulted labs reviewed. FIM Transfers Therapy Code Descriptions/Definitions Functional Mcduffie Measure: 0=Not Assessed/NA 4=Minimal Assistance 1=Total Assistance 5=Supervision or Setup 2=Maximal Assistance 6=Modified Mcduffie 3=Moderate Assistance 7=Complete IndependenceSCALE: Activities may be completed with or without assistive devices. 4-Jjzelmwkhu-trluiiy completes the activity by him/herself with no assistance from a helper. 5-Set-up or Clean-up Assistance-helper sets up or cleans up; patient completes activity. Deport assists only prior to or following the activity. 4-Supervision or Touching Assistance-helper provides verbal cues and/or touching/steadying and/or contact guard assistance as patient completes activity. Assistance may be provided throughout the activity or intermittently. 3-Partial/Moderate Assistance-helper does LESS THAN HALF the effort. Deport lifts, holds or supports trunk or limbs, but provides less than half the effort. 2-Substantial/Maximal Assistance-helper does MORE THAN HALF the effort. Deport lifts or holds trunk or limbs and provides more than half the effort. 2-Zndlsievm-iguvny does ALL the effort. Patient does none of the effort to complete the activity. Or, the assistance of 2 or more helpers is required for the patient to complete the activity. If activity was not attempted, code reason: 7-Patient Refused. 9-Not Applicable-not attempted and the patient did not perform the activity before the current illness, exacerbation or injury. 10-Not Attempted due to Environmental Limitations-(lack of equipment, weather restraints, etc.). 88-Not Attempted due to Medical Conditions or Safety Concerns. Roll Left to Right (QC): 3 Sit to Lying (QC): 3 Sit to Stand (QC): 3 Chair/Ovi-bc-Bvobo Xfer(QC): 3 Car Transfer (QC): 3 Gait Training Does the Patient Walk?: Yes Distance: 150' x 4 Walk 10 feet (QC): 4 Walk 50 ft with 2 Turns(QC): 4 Walk 150 ft (QC): 4 Walking 10ft/uneven surface-QC: 88 Gait Assistive Device: Cane Small Base Quad Wheelchair Training Wheel 50 ft with 2 turns (QC): 1 Wheel 150 ft (QC): 1 Stair Training 1 Step (curb) (QC): 88 4 Steps (QC): 88 12 Steps (QC): 88 Balance Picking up an Object (QC): 88 ADL-Treatment Eating (QC): 3 Oral Hygiene (QC): 3 Shower/Bathe Self (QC): 2 Upper Body Dressing (QC): 1 Lower Body Dressing (QC): 2 On/Off Footwear (QC): 3 Toileting Hygiene (QC): 3 Assessment/Plan Assessment and Plan Assess & Plan/Chief Complaint Assessment: Right humerus fracture status post uncomplicated repair Slow recovery with physical debility 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
[2021-10-28 06:01] LABS: CALCIUM 8.3 MG/DL (8.5-10.1)
[2021-10-28 06:02] LABS: TOTAL PROTEIN 5.3 GM/DL (6.4-8.2)
[2021-10-28 06:04] LABS: BILIRUBIN,TOTAL 0.4 MG/DL (0.1-1.0)
[2021-10-28 06:05] LABS: CREATININE SERUM 1.48 MG/DL (0.60-1.30)
[2021-10-28] MEDS: inSUlin ASPART (NovoLOG) 1 UNIT/0.01 ML (CHARGE PER UNIT) SC SCH ×4 (06:07→21:16)
[2021-10-28] MEDS ORDERED: MAGNESIUM 1 GM/100 ML IVPB 100 ML IV ONE (06:15)
[2021-10-28] MEDS: LEVOTHYROXINE 75 MCG (LEVOTHROID) TABLET PO SCH (06:20)
[2021-10-28 07:39] VITALS: BP 126/62
[2021-10-28] MEDS ORDERED: NS IV 500 ML 500 ML IV ONE (08:30)
[2021-10-28] MEDS: LORATADINE (CLARITIN) 10 MG TAB PO SCH (08:38)
[2021-10-28] MEDS: KCL 10 MEQ TAB (MICRO K) PO SCH (08:38)
[2021-10-28] MEDS: PANTOPRAZOLE 20 MG TABLET (PROTONIX) PO SCH ×2 (08:38→21:16)
[2021-10-28] MEDS: meTOprolol TARTRATE 50 MG (LOPRESSOR) TAB PO SCH ×2 (08:38→21:17)
[2021-10-28] MEDS: CYANOCOBALAMIN 1,000 MCG (VITAMIN B-12) TABLET PO SCH (08:38)
[2021-10-28] MEDS: POTASSIUM CL 10MEQ/50ML IVPB 50 ML IV SCH ×4 (08:38→17:35)
[2021-10-28] MEDS: GABAPENTIN 600 MG (NEURONTIN) TAB PO SCH ×3 (08:38→21:16)
[2021-10-28] MEDS: DOCUSATE SODIUM 100 MG (COLACE) CAP PO SCH ×2 (08:38→21:17)
[2021-10-28] MEDS: SENNA W/DOCUSATE (SENOKOT S) TABLET PO SCH ×2 (08:38→21:17)
[2021-10-28 09:00] VITALS: BP 137/65
[2021-10-28] MEDS ORDERED: CETIRIZINE HCL (ZYRTEC) 10 MG TAB PO SCH (09:00)
[2021-10-28] MEDS ORDERED: NON-FORMULARY MEDICATION 1 EA EA (Fluticasone Propionate (Flonase Allergy Relief) 2 SPRAY) NSEACH SCH (09:00)
[2021-10-28] MEDS ORDERED: FLUTICASONE NASAL SPRAY (FLONASE) 16 GM BTL NS SCH (09:00)
[2021-10-28] MEDS: ACETAMINOPHEN 325 MG TABLET PO PRN (09:16)
[2021-10-28] MEDS: polyethylene glycoL POWDER 17 GM (MIRALAX) PACK PO SCH ×2 (09:17→21:17)
[2021-10-28 09:25] VITALS: BP 123/59
--- NOTE | 2021-10-28 10:21 | ST Cognitive Linguistic Eval ---
Speech Evaluation-General Medical Diagnosis right total shoulder Onset Date: October 27, 2021 Therapy Diagnosis Therapy Diagnosis: mild neurocognitive impairment Precautions Precautions: Fall Precautions/Isolations: Fall Prevention, Standard Precautions Referral Referring Physician: Juliane Cantor Reason for Referral: Evaluation/Treatment Medical History Pertinent Medical History: CVA, DM CVA, DM Current History right total shoulder Reviewed History: Yes Social History Home: Multilevel Current Living Status: Spouse Speech PLF-Current Status Prior Level of Function independent in 3 story home with . Pt reported mangaging bills, but will now assist with finances. Subjective Pt cooperative and willing to participate in ST evaluation. Pt sitting upright in recliner. Per patient and nursing report, Pt is more alert today compared to yesterday. Language Eval: Auditory Comprehends Simple Yes/No Ques: Functional Indent/Objects Multiple Woo: Functional Ident/Pics in Multiple Woo: Functional Follows 1-Step Commands: Functional Follows Complex Directions: Functional Follows General Conversations: Functional Language Eval: Verbal Language Completes Spontaneous Greeting: Functional Produces Auto, Serial Info: Functional Imitates Simple Words/Phrases: Functional Word Finding: Mild Requests Basic Needs: Functional States Basic Personal Info: Functional Expresses Complex Ideas: Functional Language Evaluation: Writing Copies/Traces: Functional Writes to Simple Dictation: Functional Cognitive Patient Orientation Pt oriented to year, location, ROB, and date Objective Cognitive Domain Attention: Mild Memory: Mild Problem Solving: Mild Executive Functions: Mild Visuospatial Skills: WNL Composite Severity Rating: Mild Clock Drawing Severity Rating: WNL Objective Formal/Standardized Tests [facility] Mental Status ([facility]) Examination Results correlating to a mild neurocognitive disorder Oral Motor/Speech Production Slight decrease in rate of speech, however dysarthria and apraxia of speech not present. Pt was 100% intelligible in known and unknown contexts. Impression Demonstrated mild neurocognitive impairment in areas of problem solving and memory. Skilled ST recommended to focus on identified areas of difficulty in order to improve safety and increased independence upon discharge from CTU at [facility] Speech Patient Assess Expression of Ideas/Wants: Expression (4) Understanding Verbal Content: Understands (4) Brief Interview-Mental Status: Yes Repetition of Three Words: Three (3) Temporal Orientation: Year: Correct (3) Temporal Orientation: Month: Accurate within 5 days(2) Temporal Orientation: Day: Correct (1) Recall : Wear to say "Sock": Yes, no cue required (2) Recall : Color: Yes, no cue required (2) Recall : Bed: Yes, no cue required (2) Memory/Recall Ability: That he or she is in a hsp/hsp unit Speech Short Term Goals Short Term Goals Short Term Goals Pt will demonstrate 90% accuracy with memory and functional problem solving exercises when given minimal verbal/visual cues Speech Nursing Home Goals Nursing Home Goals The patient will demonstrate improve cognitive linguistic skills for safe discharge to the least restricted environment. Speech-Plan Patient/Family Goals Patient/Family Goals: Pt hopes to return home with spouse Treatment Plan Speech Therapy Treatment Plan: Continue Plan of Care Pt demonstrates mild neurocognitive impairment in the areas of memory and problem solving. Skilled ST recommended at this time to improve safety and independence for return to least restrictive environment Treatment Duration: November 11, 2021 Frequency: Modified Program (IRF) Estimated Hrs Per Day: .5 hour per day Rehab Potential: Guarded Barriers to Learning: mild cognitive impairment Pt/Family Agrees to Plan: Yes Safety Risks/Education Teaching Recipient: Patient Teaching Methods: Discussion Response to Teaching: Verbalize Understanding Education Topics Provided: SLUMS results and ST goals Discharge Recommendations Home & Family Time Speech Therapy Time In: 08:28 Speech Therapy Time Out: 08:58 Total Billed Time: 30 Billed Treatment Time 1, SPSNDCOMBLAKE De La Cruz October 28, 2021 10:21
[2021-10-28] MEDS: D5 NS 1000 ML IV SOLUTION 1,000 ML IV SCH ×2 (10:56→15:58)
--- NOTE | 2021-10-28 10:59 | Occupational Ther Daily Note ---
OT Current Status-Daily Note Subjective Pt slightly more alert this session. RN agreeable to treatment "as much as pt can tolerate." Co-treat with PT secondary to poor endurance, high fall risk, safety concerns, and need of 2 skilled clinicians to progress indep and safety with adls and functional mobility. Appearance Pt left reclined in chair, all needs within reach. Mental Status/Objective Patient Orientation: Person, Place, Situation Attachments: IV ADL-Treatment Therapy Code Descriptions/Definitions Functional [place] Measure: 0=Not Assessed/NA 4=Minimal Assistance 1=Total Assistance 5=Supervision or Setup 2=Maximal Assistance 6=Modified [place] 3=Moderate Assistance 7=Complete IndependenceSCALE: Activities may be completed with or without assistive devices. 1-Amotllnrze-zrhdnkt completes the activity by him/herself with no assistance from a helper. 5-Set-up or Clean-up Assistance-helper sets up or cleans up; patient completes activity. [place] assists only prior to or following the activity. 4-Supervision or Touching Assistance-helper provides verbal cues and/or touching/steadying and/or contact guard assistance as patient completes activity. Assistance may be provided throughout the activity or intermittently. 3-Partial/Moderate Assistance-helper does LESS THAN HALF the effort. [place] lifts, holds or supports trunk or limbs, but provides less than half the effort. 2-Substantial/Maximal Assistance-helper does MORE THAN HALF the effort. [place] lifts or holds trunk or limbs and provides more than half the effort. 7-Cnpqhwqfn-kxurno does ALL the effort. Patient does none of the effort to complete the activity. Or, the assistance of 2 or more helpers is required for the patient to complete the activity. If activity was not attempted, code reason: 7-Patient Refused. 9-Not Applicable-not attempted and the patient did not perform the activity before the current illness, exacerbation or injury. 10-Not Attempted due to Environmental Limitations-(lack of equipment, weather restraints, etc.). 88-Not Attempted due to Medical Conditions or Safety Concerns. Eating (QC): 3 (per patient report) Toileting Hygiene (QC): 3 Toilet Transfer (QC): 4 Other Treatment Pt sitting on toilet at therapy arrival, currently receiving blood transfusion. RN agreeable to treatment, "as much as pt can tolerate." Pt able to stand from toilet with use of grab bar and CGA. She performed marco care in standing with steadying assist. Min a needed to pull clothing up on R side due to RUE in sling and fatigue with prolong standing. She ambulated back to recliner with CGA and use of cane. With chair in reclined position, pt participated in exercises alternating between LUE and BLE's. Elbow flexion, wrist flexion, and hand pumps, 8x1. See PT note regarding LE's exercises. Pt fatigues very quickly and often requires lengthy rest breaks. She washed her face with set up. Education OT Patient Education: Energy conservation, Exercise program, Purpose of tx/functional activities, Safety issues Teaching Recipient: Patient Teaching Methods: Demonstration, Discussion Response to Teaching: Verbalize Understanding, Return Demonstration, R einforcement Needed OT Short Term Goals Short Term Goals Time Frame: November 10, 2021 Eatin Oral hygiene: 4 Toileting hygiene: 4 Shower/bathe self: 3 Upper body dressin Lower body dressin Putting on/taking off footwear: 3 OT Long-Term Goals Long-Term Goals Time Frame: Nov 24, 2021 Eating (QC): 5 Oral Hygiene (QC): 5 Toileting Hygiene (QC): 6 Shower/Bathe Self (QC): 4 Upper Body Dressing (QC): 4 Lower Body Dressing (QC): 5 On/Off Footwear (QC): 5 1=Demonstrate adherence to instructed precautions during ADL tasks. 2=Patient will verbalize/demonstrate understanding of assistive devices/modifications for ADL. 3=Patient will improve strength/tolerance for activity to enable patient to perform ADL's. OT Education/Plan Problem List/Assessment Assessment: Decreased Activ Tolerance, Decreased Safety Aware, Decreased UE Strength, Impaired Cognition, Impaired Coordination, Impaired Funct Balance, Impaired I ADL's, Impaired Self-Care Skills, Restricted Funct UE ROM Discharge Recommendations Plan/Recommendations: Continue POC Treatment Plan/Plan of Care Treatment,Training & Education: Yes Patient would benefit from OT for education, treatment and training to promote independence in ADL's, mobility, safety and/or upper extremity function for ADL's. Plan of Care: ADL Retraining, Cognitive Retraining, Functional Mobility, Group Exercise/Act as Ind, UE Funct Exercise/Act Treatment Duration: Nov 24, 2021 Frequency: At least 5 of 7 days/Wk (IRF) Estimated Hrs Per Day: 1.5 hours per day (75-90 min/day) Rehab Potential: Guarded Time/GCodes Start Time: 10:00 Stop Time: 11:00 Total Time Billed (hr/min): 60 Billed Treatment Time 1 visit ADL (20 min) EX x3 (40 min) Teressa Ventura OT October 28, 2021 10:59
--- NOTE | 2021-10-28 11:05 | Physical Therapy Daily Note ---
PT Daily Note-Current Subjective Pt. agrees to Rx but states she is still weak. But that she feels better than she had. PT OT co Rx secondary to weakness and limited mobility and vulnerable medical condition this date with Hgb @6.75 Pain Numeric Pain Scale: 5-Moderate Pain Location: Right Location Body Site: Shoulder Pain Description: Ache Mental Status Patient Orientation: Normal For Age Attachments: Other-See Comments (sling R shoulder), IV (receiving blood) Transfers SCALE: Activities may be completed with or without assistive devices. 8-Vgmyoavhul-itcxdze completes the activity by him/herself with no assistance from a helper. 5-Set-up or Clean-up Assistance-helper sets up or cleans up; patient completes activity. [place] assists only prior to or following the activity. 4-Supervision or Touching Assistance-helper provides verbal cues and/or touching/steadying and/or contact guard assistance as patient completes activity. Assistance may be provided throughout the activity or intermittently. 3-Partial/Moderate Assistance-helper does LESS THAN HALF the effort. [place] lifts, holds or supports trunk or limbs, but provides less than half the effort. 2-Substantial/Maximal Assistance-helper does MORE THAN HALF the effort. [place] lifts or holds trunk or limbs and provides more than half the effort. 8-Qxxobmdnn-ccwycq does ALL the effort. Patient does none of the effort to complete the activity. Or, the assistance of 2 or more helpers is required for the patient to complete the activity. If activity was not attempted, code reason: 7-Patient Refused. 9-Not Applicable-not attempted and the patient did not perform the activity before the current illness, exacerbation or injury. 10-Not Attempted due to Environmental Limitations-(lack of equipment, weather restraints, etc.). 88-Not Attempted due to Medical Conditions or Safety Concerns. pt. stood from toilet min assist, pushed self up in reclined recliner CGA Weight Bearing NWB right shoulder, sling on Gait Training Does the Patient Walk?: Yes Gait Assistive Device: Cane Large Base Quad 15 ft slow, CGA to min assist and assist for IV Exercises Supine Ex: Ankle pumps, Straight leg raise, Hip abd/add Supine Reps: 12 Seated Therapy Exercises: Long arc quads Seated Reps: 10 Treatments pt. required many rest breaks, keeps eyes mostly closed, many caregivers in out room during Rx. OT managing UE ther ex as well as toileting and clothing mgmt and cleaning after Rx. PT gait and LE Ex and min TRFs. R shoulder in sling and positioned by OT on pillow in sitting for comfort Assessment Current Status: Fair Progress pt. 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 being on her feet much with such low Hgb. PT Short Term Goals Short Term Goals Time Frame: November 03, 2021 Roll Left & Right: 4 Sit to lyin (Sara) Lying to sitting on side of be: 3 (Sara) Sit to stand: 4 (CGA) Chair/snh-ta-tzyjn transfer: 4 (CGA) Walk 10 feet: 4 (CGA) Walk 50 feet with two turns: 4 (CGA) PT Offset Printing Operator Goals Offset Printing Operator Goals PT Residential Goals Time Frame: Nov 17, 2021 Roll Left & Right (QC): 6 Sit to Lying (QC): 4 (CGA) Lying-Sitting on Side/Bed(QC): 4 (CGA) Sit to Stand (QC): 4 (SBA) Chair/Kbh-tu-Hwnfh Xfer(QC): 4 (SBA) Toilet Transfer (QC): 4 (SBA) Car Transfer (QC): 4 (SBA) Does the Patient Walk: Yes Walk 10 feet (QC): 4 (SBA) Walk 50ft with 2 Turns (QC): 4 (SBA) Walk 150 ft (QC): 4 (SBA) Walking 10ft on Uneven Surface: 4 (SBA) 1 Step (curb) (QC): 4 (CGA) 4 Steps (QC): 88 12 Steps (QC): 88 Picking up an Object (QC): 4 (SA with research coordinator) Wheel 50 feet with 2 turns (QC: 9 Wheel 150 feet: 9 PT Plan Treatment/Plan Treatment Plan: Continue Plan of Care Treatment Plan: Bed Mobility, Education, Functional Activity Kobe, Functional Strength, Group Therapy, Gait, Safety, Therapeutic Exercise, Transfers Treatment Duration: Nov 17, 2021 Frequency: At least 5 of 7 days/Wk (IRF) Estimated Hrs Per Day: 1.5 hours per day Patient and/or Family Agrees t: Yes Safety Risks/Education Patient Education: Gait Training, Transfer Techniques, Correct Positioning, Disease Process, Safety Issues Time/GCodes Time In: 1000 Time Out: 1100 Total Billed Treatment Time: 60 Total Billed Treatment 1,FA30m,GT10m,EX20m PT OT coRx 60m BARRY TABOR REFINERY OPERATOR [employer] October 28, 2021 11:05
[2021-10-28] MEDS: ENOXAPARIN 40 MG/0.4 ML (LOVENOX) SYR SC SCH (11:43)
[2021-10-28 12:16] VITALS: BP 157/67
--- NOTE | 2021-10-28 13:57 | Occupational Ther Daily Note ---
OT Current Status-Daily Note Subjective Pt sitting in recliner, dozing. Pt c/o fatigue and pain at IV site, nrsg aware. Pt agrees to therapy. Mental Status/Objective Patient Orientation: Person, Place, Time, Situation Attachments: IV ADL-Treatment assisted pt with eating meal. Therapy Code Descriptions/Definitions Functional [place] Measure: 0=Not Assessed/NA 4=Minimal Assistance 1=Total Assistance 5=Supervision or Setup 2=Maximal Assistance 6=Modified [place] 3=Moderate Assistance 7=Complete IndependenceSCALE: Activities may be completed with or without assistive devices. 6-Jzfkedmzvg-rdztmah completes the activity by him/herself with no assistance from a helper. 5-Set-up or Clean-up Assistance-helper sets up or cleans up; patient completes activity. [place] assists only prior to or following the activity. 4-Supervision or Touching Assistance-helper provides verbal cues and/or touching/steadying and/or contact guard assistance as patient completes activity. Assistance may be provided throughout the activity or intermittently. 3-Partial/Moderate Assistance-helper does LESS THAN HALF the effort. [place] lifts, holds or supports trunk or limbs, but provides less than half the effort. 2-Substantial/Maximal Assistance-helper does MORE THAN HALF the effort. [place] lifts or holds trunk or limbs and provides more than half the effort. 1-Ylwrdzjpj-xqmgmx does ALL the effort. Patient does none of the effort to complete the activity. Or, the assistance of 2 or more helpers is required for the patient to complete the activity. If activity was not attempted, code reason: 7-Patient Refused. 9-Not Applicable-not attempted and the patient did not perform the activity before the current illness, exacerbation or injury. 10-Not Attempted due to Environmental Limitations-(lack of equipment, weather restraints, etc.). 88-Not Attempted due to Medical Conditions or Safety Concerns. Other Treatment Pt given light resistance therapy sponge and skilled instruction for correct technique when completing exercises. Pt required verbal/physical cues to complete resident buyer and pinch exercises due to fatigue. Pt tolerated 20 reps of resident buyer and pinch exercises with L hand, 10 reps of resident buyer and pinch exercises with R hand. Therapy sponge left in room for pt to continue to use throughout day to increase strength and endurance for daily functional tasks. After session, pt closed eyes and dozing in recliner. Pt's in room. Call light/phone in reach. All needs met in room. OT Short Term Goals Short Term Goals Time Frame: November 10, 2021 Eatin Oral hygiene: 4 Toileting hygiene: 4 Shower/bathe self: 3 Upper body dressin Lower body dressin Putting on/taking off footwear: 3 OT Pizza Chef Goals Group Home Goals Time Frame: Nov 24, 2021 Eating (QC): 5 Oral Hygiene (QC): 5 Toileting Hygiene (QC): 6 Shower/Bathe Self (QC): 4 Upper Body Dressing (QC): 4 Lower Body Dressing (QC): 5 On/Off Footwear (QC): 5 1=Demonstrate adherence to instructed precautions during ADL tasks. 2=Patient will verbalize/demonstrate understanding of assistive devices/modifications for ADL. 3=Patient will improve strength/tolerance for activity to enable patient to perform ADL's. OT Education/Plan Problem List/Assessment Assessment: Decreased Activ Tolerance, Decreased UE Strength, Impaired Self- Care Skills, Restricted Funct UE ROM Discharge Recommendations Plan/Recommendations: Continue POC Treatment Plan/Plan of Care Patient would benefit from OT for education, treatment and training to promote independence in ADL's, mobility, safety and/or upper extremity function for ADL's. Plan of Care: ADL Retraining, Cognitive Retraining, Functional Mobility, Group Exercise/Act as Ind, UE Funct Exercise/Act Treatment Duration: Nov 24, 2021 Frequency: At least 5 of 7 days/Wk (IRF) Estimated Hrs Per Day: 1.5 hours per day (75-90 min/day) Rehab Potential: Guarded Time/GCodes Start Time: 13:20 Stop Time: 13:35 Total Time Billed (hr/min): 15 Billed Treatment Time 1 visit-EX 1 (15 min) MERVIN LOERA October 28, 2021 13:57
--- NOTE | 2021-10-28 14:38 | Physical Therapy Daily Note ---
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 Pt. states she has slowed down in the last few years and they only occupy a few rooms in the home. Pt. states she feels a little better than she did in the morning and is agreeable to therex. Pt declines going back to bed, likes the recliner for right now Pain Numeric Pain Scale: 4 Location: Right Location Body Site: Shoulder Pain Description: Ache Mental Status Patient Orientation: Normal For Age Attachments: IV Transfers SCALE: Activities may be completed with or without assistive devices. 2-Qqgbspciey-vahwgpm completes the activity by him/herself with no assistance from a helper. 5-Set-up or Clean-up Assistance-helper sets up or cleans up; patient completes activity. [place] assists only prior to or following the activity. 4-Supervision or Touching Assistance-helper provides verbal cues and/or dana ethan/steadying and/or contact guard assistance as patient completes activity. Assistance may be provided throughout the activity or intermittently. 3-Partial/Moderate Assistance-helper does LESS THAN HALF the effort. [place] lifts, holds or supports trunk or limbs, but provides less than half the effort. 2-Substantial/Maximal Assistance-helper does MORE THAN HALF the effort. [place] lifts or holds trunk or limbs and provides more than half the effort. 5-Fhqkaoyui-ffctam does ALL the effort. Patient does none of the effort to complete the activity. Or, the assistance of 2 or more helpers is required for the patient to complete the activity. If activity was not attempted, code reason: 7-Patient Refused. 9-Not Applicable-not attempted and the patient did not perform the activity before the current illness, exacerbation or injury. 10-Not Attempted due to Environmental Limitations-(lack of equipment, weather restraints, etc.). 88-Not Attempted due to Medical Conditions or Safety Concerns. Weight Bearing NWB right shoulder, sling on Exercises Supine Ex: Ankle pumps, Quad Set, Glut sets, Heel Slides, Short Arc Quads, Straight leg raise (*), Hip abd/add Supine Reps: 12 (assisted*) Assessment Current Status: Good Progress weak and frail PT Short Term Goals Short Term Goals Time Frame: November 03, 2021 Roll Left & Right: 4 Sit to lyin (Sara) Lying to sitting on side of be: 3 (Sara) Sit to stand: 4 (CGA) Chair/zex-bt-saedx transfer: 4 (CGA) Walk 10 feet: 4 (CGA) Walk 50 feet with two turns: 4 (CGA) PT Assisted Goals Assisted Goals PT Transportation Services Representative Goals Time Frame: Nov 17, 2021 Roll Left & Right (QC): 6 Sit to Lying (QC): 4 (CGA) Lying-Sitting on Side/Bed(QC): 4 (CGA) Sit to Stand (QC): 4 (SBA) Chair/Iev-zt-Inqss Xfer(QC): 4 (SBA) Toilet Transfer (QC): 4 (SBA) Car Transfer (QC): 4 (SBA) Does the Patient Walk: Yes Walk 10 feet (QC): 4 (SBA) Walk 50ft with 2 Turns (QC): 4 (SBA) Walk 150 ft (QC): 4 (SBA) Walking 10ft on Uneven Surface: 4 (SBA) 1 Step (curb) (QC): 4 (CGA) 4 Steps (QC): 88 12 Steps (QC): 88 Picking up an Object (QC): 4 (SA with surveillance systems analyst) Wheel 50 feet with 2 turns (QC: 9 Wheel 150 feet: 9 PT Plan Treatment/Plan Treatment Plan: Continue Plan of Care Treatment Plan: Bed Mobility, Education, Functional Activity Kobe, Functional Strength, Group Therapy, Gait, Safety, Therapeutic Exercise, Transfers Treatment Duration: Nov 17, 2021 Frequency: At least 5 of 7 days/Wk (IRF) Estimated Hrs Per Day: 1.5 hours per day Patient and/or Family Agrees t: Yes Safety Risks/Education Patient Education: Correct Positioning Response to Teaching: Reinforcement Needed Time/GCodes Time In: 1415 Time Out: 1435 Total Billed Treatment Time: 20 Total Billed Treatment 1,EX20m BARRY TABOR PRESS TENDER [employer] October 28, 2021 14:38
[2021-10-28 19:23] VITALS: BP 169/69
[2021-10-28] MEDS: rOPINIRole 1 MG (REQUIP) TABLET PO SCH (21:16)
[2021-10-28] MEDS: FLUTICASONE NASAL SPRAY (FLONASE) 16 GM BTL NS SCH (21:16)
[2021-10-28] MEDS: FERROUS SULF 325 MG (IRON) TAB PO SCH (21:17)
[2021-10-28] MEDS: VITAMIN D3 25 MCG (1,000 UNITS) TABLET PO SCH (21:17)
[2021-10-29] MEDS: HYDROcodone/APAP 7.5 MG/325 MG (LORTAB, LORCET PLUS) TABLET PO PRN ×5 (00:50→21:11)
--- NOTE | 2021-10-29 03:32 | PM&R Progress Note ---
Subjective HPI/CC On Admission Date Seen by Provider: October 29, 2021 Time Seen by Provider: 05:45 Subjective/Events-last exam 10/29/21: Pt doing well No major issues overnight Will Heplock the D5NS normal saline Checked labs today but they are pending No falls 10/28/2021: Pt is dramatically improved Hemoglobin was 6.7, receiving one unit of blood No midline will be available because of history of breast cancer on the left with lymph node removal. High risk for lymphadenitis and on the right is the humerus fracture. Having a bowel movement now Potassium supplement also Review of Systems General: Fatigue, Malaise Musculoskeletal: arm pain Focused Exam Lactate Level 10/27/21 12:05: Lactic Acid Level 1.07 Objective Exam Vital Signs Vital Signs Date Time Temp Pulse Resp B/P (MAP) Pulse Ox O2 Delivery O2 Flow Rate FiO2 10/29/21 09:00 Room Air 10/29/21 07:31 36.7 55 18 148/77 (100) 100 Capillary Refill : General Appearance: WD/WN, Anxious, Chronically ill, Mild Distress HEENT: PERRL/EOMI, Normal ENT Inspection, Pharynx Normal Neck: Full Range of Motion, Normal Inspection, Non Tender, Supple, Carotid Bruit Respiratory: Chest Non Tender, Lungs Clear, Normal Breath Sounds, No Accessory Muscle Use, No Respiratory Distress Cardiovascular: Regular Rate, Rhythm, No Edema, No Gallop, No JVD, No Murmur, Normal Peripheral Pulses Gastrointestinal: Normal Bowel Sounds, No Organomegaly, No Pulsatile Mass, Non Tender, Soft Back: Normal Inspection, No CVA Tenderness, No Vertebral Tenderness Extremity: Normal Capillary Refill, Normal Inspection, Normal Range of Motion (Except right arm in sling), Non Tender, No Calf Tenderness, No Pedal Edema Neurologic/Psychiatric: Alert, Oriented x3, No Motor/Sensory Deficits, Normal Mood/Affect, 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 FIM Transfers Therapy Code Descriptions/Definitions Functional [place] Measure: 0=Not Assessed/NA 4=Minimal Assistance 1=Total Assistance 5=Supervision or Setup 2=Maximal Assistance 6=Modified [place] 3=Moderate Assistance 7=Complete IndependenceSCALE: Activities may be completed with or without assistive devices. 4-Fbnqlexfij-hiapyjc completes the activity by him/herself with no assistance from a helper. 5-Set-up or Clean-up Assistance-helper sets up or cleans up; patient completes activity. [place] assists only prior to or following the activity. 4-Supervision or Touching Assistance-helper provides verbal cues and/or touching/steadying and/or contact guard assistance as patient completes activity. Assistance may be provided throughout the activity or intermittently. 3-Partial/Moderate Assistance-helper does LESS THAN HALF the effort. [place] lifts, holds or supports trunk or limbs, but provides less than half the effort. 2-Substantial/Maximal Assistance-helper does MORE THAN HALF the effort. [place] lifts or holds trunk or limbs and provides more than half the effort. 0-Tboltpfej-dyppuq does ALL the effort. Patient does none of the effort to complete the activity. Or, the assistance of 2 or more helpers is required for the patient to complete the activity. If activity was not attempted, code reason: 7-Patient Refused. 9-Not Applicable-not attempted and the patient did not perform the activity before the current illness, exacerbation or injury. 10-Not Attempted due to Environmental Limitations-(lack of equipment, weather re straints, etc.). 88-Not Attempted due to Medical Conditions or Safety Concerns. Roll Left to Right (QC): 3 Sit to Lying (QC): 3 Sit to Stand (QC): 3 Chair/Zso-aa-Xnllj Xfer(QC): 3 Car Transfer (QC): 3 Gait Training Does the Patient Walk?: Yes Distance: 150' x 4 Walk 10 feet (QC): 4 Walk 50 ft with 2 Turns(QC): 4 Walk 150 ft (QC): 4 Walking 10ft/uneven surface-QC: 88 Gait Assistive Device: Cane Large Base Quad Wheelchair Training Wheel 50 ft with 2 turns (QC): 1 Wheel 150 ft (QC): 1 Stair Training 1 Step (curb) (QC): 88 4 Steps (QC): 88 12 Steps (QC): 88 Balance Picking up an Object (QC): 88 ADL-Treatment Eating (QC): 3 (per patient report) Oral Hygiene (QC): 3 Shower/Bathe Self (QC): 2 Upper Body Dressing (QC): 1 Lower Body Dressing (QC): 2 On/Off Footwear (QC): 3 Toileting Hygiene (QC): 3 Toilet Transfer (QC): 4 Assessment/Plan Assessment and Plan Assess & Plan/Chief Complaint Assessment: Right humerus fracture status post uncomplicated repair Slow recovery with physical debility 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
[2021-10-29] MEDS: D5 NS 1000 ML IV SOLUTION 1,000 ML IV SCH (05:10)
[2021-10-29] MEDS: inSUlin ASPART (NovoLOG) 1 UNIT/0.01 ML (CHARGE PER UNIT) SC SCH ×4 (05:10→21:36)
[2021-10-29 06:09] LABS: BASOPHILS % (AUTO) 1 % (0-10); EOSINOPHILS # (AUTO) 0.3 10^3/uL (0.0-0.3); EOSINOPHILS % (AUTO) 7 % (0-10); HEMATOCRIT 26 % (35-52); HEMOGLOBIN 8.4 g/dL (11.5-16.0); LYMPHOCYTES # (AUTO) 1.2 10^3/uL (1.0-4.0); LYMPHOCYTES % (AUTO) 25 % (12-44); MEAN CORPUSCULAR HEMOGLOBIN 29 pg (25-34); MEAN CORPUSCULAR HGB CONC 33 g/dL (32-36); MEAN CORPUSCULAR VOLUME 89 fL (80-99); MEAN PLATELET VOLUME 9.8 fL (9.0-12.2); MONOCYTES # (AUTO) 0.4 10^3/uL (0.0-1.0); MONOCYTES % (AUTO) 9 % (0-12); NEUTROPHILS # (AUTO) 2.8 10^3/uL (1.8-7.8); NEUTROPHILS % (AUTO) 59 % (42-75); PLATELET COUNT 168 10^3/uL (130-400); WHITE BLOOD COUNT 4.7 10^3/uL (4.3-11.0)
[2021-10-29] MEDS: LEVOTHYROXINE 75 MCG (LEVOTHROID) TABLET PO SCH (06:19)
[2021-10-29 06:24] LABS: ALBUMIN 2.9 GM/DL (3.2-4.5); POTASSIUM 3.5 MMOL/L (3.6-5.0)
[2021-10-29 06:25] LABS: CALCIUM 8.5 MG/DL (8.5-10.1)
[2021-10-29 06:27] LABS: TOTAL PROTEIN 5.2 GM/DL (6.4-8.2)
[2021-10-29 06:28] LABS: BILIRUBIN,TOTAL 0.6 MG/DL (0.1-1.0)
[2021-10-29 06:30] LABS: CREATININE SERUM 1.19 MG/DL (0.60-1.30)
[2021-10-29 07:31] VITALS: BP 148/77
[2021-10-29] MEDS: meTOprolol TARTRATE 50 MG (LOPRESSOR) TAB PO SCH ×2 (07:46→21:10)
[2021-10-29] MEDS: GABAPENTIN 600 MG (NEURONTIN) TAB PO SCH ×3 (07:46→21:11)
[2021-10-29] MEDS: SENNA W/DOCUSATE (SENOKOT S) TABLET PO SCH ×2 (07:46→21:10)
[2021-10-29] MEDS: KCL 10 MEQ TAB (MICRO K) PO SCH (07:46)
[2021-10-29] MEDS: DOCUSATE SODIUM 100 MG (COLACE) CAP PO SCH ×2 (07:47→21:11)
[2021-10-29] MEDS: CYANOCOBALAMIN 1,000 MCG (VITAMIN B-12) TABLET PO SCH (07:47)
[2021-10-29] MEDS: LORATADINE (CLARITIN) 10 MG TAB PO SCH (07:47)
[2021-10-29] MEDS: PANTOPRAZOLE 20 MG TABLET (PROTONIX) PO SCH ×2 (07:47→21:10)
[2021-10-29] MEDS: polyethylene glycoL POWDER 17 GM (MIRALAX) PACK PO SCH ×2 (09:42→21:36)
--- NOTE | 2021-10-29 10:45 | Physical Therapy Daily Note ---
PT Daily Note-Current Subjective Pt sitting in recliner upon arrival. Pt agrees to PT but demonstrates confusion and often gets off topic when asked question. Pain Location: Right Location Body Site: Shoulder Pain Description: Ache Comment: Reports but doesn't rate Mental Status Patient Orientation: Person, Confused Transfers SCALE: Activities may be completed with or without assistive devices. 2-Fhgvisnjtx-steepky completes the activity by him/herself with no assistance from a helper. 5-Set-up or Clean-up Assistance-helper sets up or cleans up; patient completes activity. [place] assists only prior to or following the activity. 4-Supervision or Touching Assistance-helper provides verbal cues and/or touching/steadying and/or contact guard assistance as patient completes activity. Assistance may be provided throughout the activity or intermittently. 3-Partial/Moderate Assistance-helper does LESS THAN HALF the effort. [place] lifts, holds or supports trunk or limbs, but provides less than half the effort. 2-Substantial/Maximal Assistance-helper does MORE THAN HALF the effort. [place] lifts or holds trunk or limbs and provides more than half the effort. 0-Erwwzojdw-ecyjzb does ALL the effort. Patient does none of the effort to complete the activity. Or, the assistance of 2 or more helpers is required for the patient to complete the activity. If activity was not attempted, code reason: 7-Patient Refused. 9-Not Applicable-not attempted and the patient did not perform the activity before the current illness, exacerbation or injury. 10-Not Attempted due to Environmental Limitations-(lack of equipment, weather restraints, etc.). 88-Not Attempted due to Medical Conditions or Safety Concerns. Weight Bearing NWB right shoulder, sling on Exercises Supine Ex: Ankle pumps, Quad Set, Heel Slides Supine Reps: 10 Treatments HULL DRAFTER issues and reviews written HEP for Supine and Seated Ex. HULL DRAFTER gives VC & TC as well as demonstration but pt continues to need redirection to try to even get 10 reps of Ex. Pt continues to get off topic and talk about pain in shoulder and how pt fell. Assessment Current Status: Poor Progress Pt is easily distracted and needs constant redirection. Pt demonstrates difficulty following directions. PT Short Term Goals Short Term Goals Time Frame: November 03, 2021 Roll Left & Right: 4 Sit to lyin (Sara) Lying to sitting on side of be: 3 (Sara) Sit to stand: 4 (CGA) Chair/phv-pg-bwgtd transfer: 4 (CGA) Walk 10 feet: 4 (CGA) Walk 50 feet with two turns: 4 (CGA) PT Printer Machine Goals Jail Goals PT Jail Goals Time Frame: Nov 17, 2021 Roll Left & Right (QC): 6 Sit to Lying (QC): 4 (CGA) Lying-Sitting on Side/Bed(QC): 4 (CGA) Sit to Stand (QC): 4 (SBA) Chair/Tid-nm-Dttvb Xfer(QC): 4 (SBA) Toilet Transfer (QC): 4 (SBA) Car Transfer (QC): 4 (SBA) Does the Patient Walk: Yes Walk 10 feet (QC): 4 (SBA) Walk 50ft with 2 Turns (QC): 4 (SBA) Walk 150 ft (QC): 4 (SBA) Walking 10ft on Uneven Surface: 4 (SBA) 1 Step (curb) (QC): 4 (CGA) 4 Steps (QC): 88 12 Steps (QC): 88 Picking up an Object (QC): 4 (SA with accounting manager) Wheel 50 feet with 2 turns (QC: 9 Wheel 150 feet: 9 PT Plan Problem List Problem List: Activity Tolerance, Functional Strength Treatment/Plan Treatment Plan: Continue Plan of Care Treatment Plan: Bed Mobility, Education, Functional Activity [place], Functional Strength, Group Therapy, Gait, Safety, Therapeutic Exercise, Transfers Treatment Duration: Nov 17, 2021 Frequency: At least 5 of 7 days/Wk (IRF) Estimated Hrs Per Day: 1.5 hours per day Patient and/or Family Agrees t: Yes Safety Risks/Education Patient Education: Issued Written HEP Teaching Recipient: Patient Teaching Methods: Demonstration, Discussion Response to Teaching: Reinforcement Needed Time/GCodes Time In: 1020 Time Out: 1035 Total Billed Treatment Time: 15 Total Billed Treatment 1, EX (15m) MATTHEW KISER PTA October 29, 2021 10:45
[2021-10-29] MEDS: ENOXAPARIN 40 MG/0.4 ML (LOVENOX) SYR SC SCH (12:03)
[2021-10-29 20:00] VITALS: BP 156/71
[2021-10-29] MEDS: FERROUS SULF 325 MG (IRON) TAB PO SCH (21:10)
[2021-10-29] MEDS: FLUTICASONE NASAL SPRAY (FLONASE) 16 GM BTL NS SCH (21:10)
[2021-10-29] MEDS: rOPINIRole 1 MG (REQUIP) TABLET PO SCH (21:10)
[2021-10-29] MEDS: VITAMIN D3 25 MCG (1,000 UNITS) TABLET PO SCH (21:11)
[2021-10-30] MEDS: HYDROcodone/APAP 7.5 MG/325 MG (LORTAB, LORCET PLUS) TABLET PO PRN ×5 (01:08→20:23)
--- NOTE | 2021-10-30 05:37 | PM&R Progress Note ---
Subjective HPI/CC On Admission Date Seen by Provider: October 30, 2021 Time Seen by Provider: 05:45 Subjective/Events-last exam 10/30/2021: Pt dramatically improved Completely lucid and no concerns Hemoglobin kamari to an appropriate level after 1 unit given a few days ago Bowels are moving No pain reported 10/29/21: Pt doing well No major issues overnight Will Heplock the D5NS normal saline Checked labs today but they are pending No falls 10/28/2021: Pt is dramatically improved Hemoglobin was 6.7, receiving one unit of blood No midline will be available because of history of breast cancer on the left with lymph node removal. High risk for lymphadenitis and on the right is the humerus fracture. Having a bowel movement now Potassium supplement also Review of Systems General: Fatigue, Malaise Focused Exam Lactate Level Objective Exam Vital Signs Vital Signs Date Time Temp Pulse Resp B/P (MAP) Pulse Ox O2 Delivery O2 Flow Rate FiO2 10/30/21 08:59 Room Air 10/30/21 07:30 36.6 52 18 132/72 (92) 100 Capillary Refill : General Appearance: WD/WN, Anxious, Chronically ill, Mild Distress HEENT: PERRL/EOMI, Normal ENT Inspection, Pharynx Normal Neck: Full Range of Motion, Normal Inspection, Non Tender, Supple, Carotid Bruit Respiratory: Chest Non Tender, Lungs Clear, Normal Breath Sounds, No Accessory Muscle Use, No Respiratory Distress Cardiovascular: Regular Rate, Rhythm, No Edema, No Gallop, No JVD, No Murmur, Normal Peripheral Pulses Gastrointestinal: Normal Bowel Sounds, No Organomegaly, No Pulsatile Mass, Non Tender, Soft Back: Normal Inspection, No CVA Tenderness, No Vertebral Tenderness Extremity: Normal Capillary Refill, Normal Inspection, Normal Range of Motion (Except right arm in sling), Non Tender, No Calf Tenderness, No Pedal Edema Neurologic/Psychiatric: Alert, Oriented x3, No Motor/Sensory Deficits, Normal Mood/Affect, 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 FIM Transfers Therapy Code Descriptions/Definitions Functional [place] Measure: 0=Not Assessed/NA 4=Minimal Assistance 1=Total Assistance 5=Supervision or Setup 2=Maximal Assistance 6=Modified [place] 3=Moderate Assistance 7=Complete IndependenceSCALE: Activities may be completed with or without assistive devices. 4-Nohdppzugq-bqppgtg completes the activity by him/herself with no assistance from a helper. 5-Set-up or Clean-up Assistance-helper sets up or cleans up; patient completes activity. [place] assists only prior to or following the activity. 4-Supervision or Touching Assistance-helper provides verbal cues and/or touching/steadying and/or contact guard assistance as patient completes activity. Assistance may be provided throughout the activity or intermittently. 3-Partial/Moderate Assistance-helper does LESS THAN HALF the effort. [place] lifts, holds or supports trunk or limbs, but provides less than half the effort. 2-Substantial/Maximal Assistance-helper does MORE THAN HALF the effort. [place] lifts or holds trunk or limbs and provides more than half the effort. 8-Omghclrub-tvskhb does ALL the effort. Patient does none of the effort to complete the activity. Or, the assistance of 2 or more helpers is required for the patient to complete the activity. If activity was not attempted, code reason: 7-Patient Refused. 9-Not Applicable-not attempted and the patient did not perform the activity before the current illness, exacerbation or injury. 10-Not Attempted due to Environmental Limitations-(lack of equipment, weather restraints, etc.). 88-Not Attempted due to Medical Conditions or Safety Concerns. Roll Left to Right (QC): 3 Sit to Lying (QC): 3 Sit to Stand (QC): 3 Chair/Evc-ka-Hpsqw Xfer(QC): 3 Car Transfer (QC): 3 Gait Training Does the Patient Walk?: Yes Distance: 150' x 4 Walk 10 feet (QC): 4 Walk 50 ft with 2 Turns(QC): 4 Walk 150 ft (QC): 4 Walking 10ft/uneven surface-QC: 88 Gait Assistive Device: Cane Large Base Quad Wheelchair Training Wheel 50 ft with 2 turns (QC): 1 Wheel 150 ft (QC): 1 Stair Training 1 Step (curb) (QC): 88 4 Steps (QC): 88 12 Steps (QC): 88 Balance Picking up an Object (QC): 88 ADL-Treatment Eating (QC): 3 (per patient report) Oral Hygiene (QC): 3 Shower/Bathe Self (QC): 2 Upper Body Dressing (QC): 1 Lower Body Dressing (QC): 2 On/Off Footwear (QC): 3 Toileting Hygiene (QC): 3 Toilet Transfer (QC): 4 Assessment/Plan Assessment and Plan Assess & Plan/Chief Complaint Assessment: Right humerus fracture status post uncomplicated repair Slow recovery with physical debility 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 Chronic kidney disease Diabetes Current hypoglycemia will hold all diabetic meds Severe oversedation with baclofen Severe LENNY on BiPAP Poor appetite Osteoarthritis Anemia requiring 1 unit of transfusion on 10/28/2021 Plan: Gentle IV fluids of D5 NS Hold all diabetic meds Supportive care Use BiPAP 10/28/2021: Transfuse 1 unit today Supportive care Much improved status 10/29/21: Monitor sugar Fall risk 10/30/2021: Monitor sugar Supportive care (1) Right humeral fracture Status: Acute (2) Debility, unspecified Status: Acute (3) Physical debility Status: Acute LINDSAY KRUSE DO October 30, 2021 05:37
[2021-10-30] MEDS: inSUlin ASPART (NovoLOG) 1 UNIT/0.01 ML (CHARGE PER UNIT) SC SCH ×4 (05:51→20:08)
[2021-10-30] MEDS: LEVOTHYROXINE 75 MCG (LEVOTHROID) TABLET PO SCH (06:03)
[2021-10-30 07:30] VITALS: BP 132/72
[2021-10-30] MEDS: meTOprolol TARTRATE 50 MG (LOPRESSOR) TAB PO SCH ×2 (07:54→20:25)
[2021-10-30] MEDS: LORATADINE (CLARITIN) 10 MG TAB PO SCH (07:54)
[2021-10-30] MEDS: DOCUSATE SODIUM 100 MG (COLACE) CAP PO SCH ×2 (07:54→07:59)
[2021-10-30] MEDS: CYANOCOBALAMIN 1,000 MCG (VITAMIN B-12) TABLET PO SCH (07:54)
[2021-10-30] MEDS: PANTOPRAZOLE 20 MG TABLET (PROTONIX) PO SCH ×2 (07:55→20:24)
[2021-10-30] MEDS: GABAPENTIN 600 MG (NEURONTIN) TAB PO SCH ×3 (07:55→20:24)
[2021-10-30] MEDS: KCL 10 MEQ TAB (MICRO K) PO SCH (07:55)
[2021-10-30] MEDS: SENNA W/DOCUSATE (SENOKOT S) TABLET PO SCH ×2 (07:59→20:24)
[2021-10-30] MEDS: polyethylene glycoL POWDER 17 GM (MIRALAX) PACK PO SCH ×2 (08:46→20:23)
[2021-10-30] MEDS: ENOXAPARIN 40 MG/0.4 ML (LOVENOX) SYR SC SCH (11:27)
[2021-10-30 19:43] VITALS: BP 167/70
[2021-10-30] MEDS: VITAMIN D3 25 MCG (1,000 UNITS) TABLET PO SCH (20:22)
[2021-10-30] MEDS: FLUTICASONE NASAL SPRAY (FLONASE) 16 GM BTL NS SCH (20:22)
[2021-10-30] MEDS: rOPINIRole 1 MG (REQUIP) TABLET PO SCH (20:24)
[2021-10-30] MEDS: FERROUS SULF 325 MG (IRON) TAB PO SCH (20:25)
[2021-10-31] MEDS: HYDROcodone/APAP 7.5 MG/325 MG (LORTAB, LORCET PLUS) TABLET PO PRN ×5 (04:28→21:51)
[2021-10-31 05:39] LABS: BASOPHILS % (AUTO) 1 % (0-10); EOSINOPHILS # (AUTO) 0.5 10^3/uL (0.0-0.3); EOSINOPHILS % (AUTO) 8 % (0-10); HEMATOCRIT 27 % (35-52); HEMOGLOBIN 8.8 g/dL (11.5-16.0); LYMPHOCYTES # (AUTO) 1.5 10^3/uL (1.0-4.0); LYMPHOCYTES % (AUTO) 27 % (12-44); MEAN CORPUSCULAR HEMOGLOBIN 30 pg (25-34); MEAN CORPUSCULAR HGB CONC 33 g/dL (32-36); MEAN CORPUSCULAR VOLUME 90 fL (80-99); MEAN PLATELET VOLUME 9.9 fL (9.0-12.2); MONOCYTES # (AUTO) 0.5 10^3/uL (0.0-1.0); MONOCYTES % (AUTO) 8 % (0-12); NEUTROPHILS # (AUTO) 3.2 10^3/uL (1.8-7.8); NEUTROPHILS % (AUTO) 56 % (42-75); PLATELET COUNT 221 10^3/uL (130-400); WHITE BLOOD COUNT 5.7 10^3/uL (4.3-11.0)
--- NOTE | 2021-10-31 05:52 | PM&R Progress Note ---
Subjective HPI/CC On Admission Date Seen by Provider: October 31, 2021 Time Seen by Provider: 10:00 Subjective/Events-last exam 10/31/2021: Pt dramatically improved Hemoglobin 8.8 Lortab given for pain Creatinine was 1.18 10/30/2021: Pt dramatically improved Completely lucid and no concerns Hemoglobin kamari to an appropriate level after 1 unit given a few days ago Bowels are moving No pain reported 10/29/21: Pt doing well No major issues overnight Will Heplock the D5NS normal saline Checked labs today but they are pending No falls 10/28/2021: Pt is dramatically improved Hemoglobin was 6.7, receiving one unit of blood No midline will be available because of history of breast cancer on the left with lymph node removal. High risk for lymphadenitis and on the right is the humerus fracture. Having a bowel movement now Potassium supplement also Review of Systems General: Fatigue, Malaise Musculoskeletal: arm pain Objective Exam Vital Signs Vital Signs Date Time Temp Pulse Resp B/P (MAP) Pulse Ox O2 Delivery O2 Flow Rate FiO2 10/31/21 20:22 36.8 59 20 153/78 (103) 100 Room Air Capillary Refill : General Appearance: WD/WN, Anxious, Chronically ill, Mild Distress HEENT: PERRL/EOMI, Normal ENT Inspection, Pharynx Normal Neck: Full Range of Motion, Normal Inspection, Non Tender, Supple, Carotid Bruit Respiratory: Chest Non Tender, Lungs Clear, Normal Breath Sounds, No Accessory Muscle Use, No Respiratory Distress Cardiovascular: Regular Rate, Rhythm, No Edema, No Gallop, No JVD, No Murmur, Normal Peripheral Pulses Gastrointestinal: Normal Bowel Sounds, No Organomegaly, No Pulsatile Mass, Non Tender, Soft Back: Normal Inspection, No CVA Tenderness, No Vertebral Tenderness Extremity: Normal Capillary Refill, Normal Inspection, Normal Range of Motion (Except right arm in sling), Non Tender, No Calf Tenderness, No Pedal Edema Neurologic/Psychiatric: Alert, Oriented x3, No Motor/Sensory Deficits, Normal Mood/Affect, 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 FIM Transfers Therapy Code Descriptions/Definitions Functional [place] Measure: 0=Not Assessed/NA 4=Minimal Assistance 1=Total Assistance 5=Supervision or Setup 2=Maximal Assistance 6=Modified [place] 3=Moderate Assistance 7=Complete IndependenceSCALE: Activities may be completed with or without assistive devices. 8-Dymmvxvmbz-zoncmiz completes the activity by him/herself with no assistance from a helper. 5-Set-up or Clean-up Assistance-helper sets up or cleans up; patient completes activity. [place] assists only prior to or following the activity. 4-Supervision or Touching Assistance-helper provides verbal cues and/or touching/steadying and/or contact guard assistance as patient completes activity. Assistance may be provided throughout the activity or intermittently. 3-Partial/Moderate Assistance-helper does LESS THAN HALF the effort. [place] lifts, holds or supports trunk or limbs, but provides less than half the effort. 2-Substantial/Maximal Assistance-helper does MORE THAN HALF the effort. [place] lifts or holds trunk or limbs and provides more than half the effort. 2-Eeeudcxfp-shbgit does ALL the effort. Patient does none of the effort to complete the activity. Or, the assistance of 2 or more helpers is required for the patient to complete the activity. If activity was not attempted, code reason: 7-Patient Refused. 9-Not Applicable-not attempted and the patient did not perform the activity before the current illness, exacerbation or injury. 10-Not Attempted due to Environmental Limitations-(lack of equipment, weather restraints, etc.). 88-Not Attempted due to Medical Conditions or Safety Concerns. Roll Left to Right (QC): 3 Sit to Lying (QC): 3 Sit to Stand (QC): 3 Chair/Bro-ny-Afmej Xfer(QC): 3 Car Transfer (QC): 3 Gait Training Does the Patient Walk?: Yes Distance: 150' x 4 Walk 10 feet (QC): 4 Walk 50 ft with 2 Turns(QC): 4 Walk 150 ft (QC): 4 Walking 10ft/uneven surface-QC: 88 Gait Assistive Device: Cane Large Base Quad Wheelchair Training Wheel 50 ft with 2 turns (QC): 1 Wheel 150 ft (QC): 1 Stair Training 1 Step (curb) (QC): 88 4 Steps (QC): 88 12 Steps (QC): 88 Balance Picking up an Object (QC): 88 ADL-Treatment Eating (QC): 3 (per patient report) Oral Hygiene (QC): 3 Shower/Bathe Self (QC): 2 Upper Body Dressing (QC): 1 Lower Body Dressing (QC): 2 On/Off Footwear (QC): 3 Toileting Hygiene (QC): 3 Toilet Transfer (QC): 4 Assessment/Plan Assessment and Plan Assess & Plan/Chief Complaint Assessment: Right humerus fracture status post uncomplicated repair Slow recovery with physical debility 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 Chronic kidney disease Diabetes Current hypoglycemia will hold all diabetic meds Severe oversedation with baclofen Severe LENNY on BiPAP Poor appetite Osteoarthritis Anemia requiring 1 unit of transfusion on 10/28/2021 Plan: Gentle IV fluids of D5 NS Hold all diabetic meds Supportive care Use BiPAP 10/28/2021: Transfuse 1 unit today Supportive care Much improved status 10/29/21: Monitor sugar Fall risk 10/30/2021: Monitor sugar Supportive care 10/31/2021: Supportive care Monitor closely (1) Right humeral fracture Status: Acute (2) Debility, unspecified Status: Acute (3) Physical debility Status: Acute LINDSAY KRUSE DO October 31, 2021 05:52
[2021-10-31 06:06] LABS: ALBUMIN 3.1 GM/DL (3.2-4.5)
[2021-10-31 06:07] LABS: POTASSIUM 3.7 MMOL/L (3.6-5.0)
[2021-10-31 06:08] LABS: CALCIUM 8.8 MG/DL (8.5-10.1)
[2021-10-31 06:09] LABS: TOTAL PROTEIN 5.6 GM/DL (6.4-8.2)
[2021-10-31 06:11] LABS: BILIRUBIN,TOTAL 0.5 MG/DL (0.1-1.0)
[2021-10-31] MEDS: inSUlin ASPART (NovoLOG) 1 UNIT/0.01 ML (CHARGE PER UNIT) SC SCH ×4 (06:11→20:31)
[2021-10-31 06:13] LABS: CREATININE SERUM 1.18 MG/DL (0.60-1.30)
[2021-10-31] MEDS: LEVOTHYROXINE 75 MCG (LEVOTHROID) TABLET PO SCH (06:41)
[2021-10-31 07:43] VITALS: BP 173/80
[2021-10-31] MEDS: CYANOCOBALAMIN 1,000 MCG (VITAMIN B-12) TABLET PO SCH (08:26)
[2021-10-31] MEDS: GABAPENTIN 600 MG (NEURONTIN) TAB PO SCH ×3 (08:26→20:59)
[2021-10-31] MEDS: KCL 10 MEQ TAB (MICRO K) PO SCH (08:26)
[2021-10-31] MEDS: meTOprolol TARTRATE 50 MG (LOPRESSOR) TAB PO SCH ×2 (08:26→21:00)
[2021-10-31] MEDS: LORATADINE (CLARITIN) 10 MG TAB PO SCH (08:27)
[2021-10-31] MEDS: PANTOPRAZOLE 20 MG TABLET (PROTONIX) PO SCH ×2 (08:27→21:00)
[2021-10-31] MEDS: polyethylene glycoL POWDER 17 GM (MIRALAX) PACK PO SCH ×2 (08:30→20:03)
[2021-10-31] MEDS: DOCUSATE SODIUM 100 MG (COLACE) CAP PO SCH ×2 (08:30→21:01)
[2021-10-31] MEDS: SENNA W/DOCUSATE (SENOKOT S) TABLET PO SCH ×2 (08:30→21:01)
--- NOTE | 2021-10-31 10:05 | Occupational Ther Daily Note ---
OT Current Status-Daily Note Subjective Pt reports pain as 2/10 at start of session. Increase to 5 after adls and shoulder pendulums. Appearance Pt returned to sitting in chair, all needs within reach. Mental Status/Objective Patient Orientation: Person, Place, Situation Attachments: IV, Other-See Comments (GEETA sling) ADL-Treatment Therapy Code Descriptions/Definitions Functional [place] Measure: 0=Not Assessed/NA 4=Minimal Assistance 1=Total Assistance 5=Supervision or Setup 2=Maximal Assistance 6=Modified [place] 3=Moderate Assistance 7=Complete IndependenceSCALE: Activities may be completed with or without assistive devices. 8-Bikcadmlcg-etznsby completes the activity by him/herself with no assistance from a helper. 5-Set-up or Clean-up Assistance-helper sets up or cleans up; patient completes activity. [place] assists only prior to or following the activity. 4-Supervision or Touching Assistance-helper provides verbal cues and/or touching/steadying and/or contact guard assistance as patient completes activity. Assistance may be provided throughout the activity or intermittently. 3-Partial/Moderate Assistance-helper does LESS THAN HALF the effort. [place] lifts, holds or supports trunk or limbs, but provides less than half the effort. 2-Substantial/Maximal Assistance-helper does MORE THAN HALF the effort. [place] lifts or holds trunk or limbs and provides more than half the effort. 5-Auykutcmr-drgdpx does ALL the effort. Patient does none of the effort to complete the activity. Or, the assistance of 2 or more helpers is required for the patient to complete the activity. If activity was not attempted, code reason: 7-Patient Refused. 9-Not Applicable-not attempted and the patient did not perform the activity before the current illness, exacerbation or injury. 10-Not Attempted due to Environmental Limitations-(lack of equipment, weather restraints, etc.). 88-Not Attempted due to Medical Conditions or Safety Concerns. Shower/Bathe Self (QC): 3 Lower Body Dressing (QC): 3 On/Off Footwear: 4 (dependent to don compression stockings) Toileting Hygiene (QC): 3 Toilet Transfer (QC): 4 Sponge bath performed seated in chair. Post demonstration for compensatory method, pt able to wash LUE/axilla without assist. Min a to slightly abduct RUE in order for patient to wash axilla.With steadying assist, She stood to wash marco area, assist needed to wash backside. Pt able to wash feet with use of cross over method. No upper body clothing available. Pt declines wearing donated clothing, thus new hospital gown donned. Pt to ask spouse to bring in extra clothing (pt usually wears dresses). She was able to thread BLE's into underwear. Minimal assist needed to pull up over R hip due to difficulty reaching with LUE. Mod a needed to don/doff RUE sling; cues/assist for correct positioning. Other Treatment Post demonstration, pt stood at bed rail to perform shoulder pendulums. Due to fear of falling, pt guarded with bending forward enough to let arm hang and with swaying body. Limited active movement, assist at hips to increase swaying motion. Exercises included side to side and small circles, ~1 minute each. Pt then sat to complete AROM at R hand/wrist and elbow. 10 x1 flexion/extension. Good tolerance, able to complete full range. Slight edema notable in R hand. Education OT Patient Education: Correct positioning, Energy conservation, Exercise program, Modified ADL techniques, Progress toward Goal/Update tx plan, Purpose of tx/functional activities, Reviewed precautions, Rehab process, Safety issues Teaching Recipient: Patient Teaching Methods: Demonstration, Discussion Response to Teaching: Verbalize Understanding, Return Demonstration, Reinforcement Needed OT Short Term Goals Short Term Goals Time Frame: November 10, 2021 Eatin Oral hygiene: 4 Toileting hygiene: 4 Shower/bathe self: 3 Upper body dressin Lower body dressin Putting on/taking off footwear: 3 OT Residential Goals Spot Washer Goals Time Frame: Nov 24, 2021 Eating (QC): 5 Oral Hygiene (QC): 5 Toileting Hygiene (QC): 6 Shower/Bathe Self (QC): 4 Upper Body Dressing (QC): 4 Lower Body Dressing (QC): 5 On/Off Footwear (QC): 5 1=Demonstrate adherence to instructed precautions during ADL tasks. 2=Patient will verbalize/demonstrate understanding of assistive devices/modifications for ADL. 3=Patient will improve strength/tolerance for activity to enable patient to perform ADL's. OT Education/Plan Problem List/Assessment Assessment: Decreased Activ Tolerance, Decreased UE Strength, Impaired Cognition, Impaired Coordination, Impaired Funct Balance, Impaired I ADL's, Impaired Self-Care Skills, Restricted Funct UE ROM Discharge Recommendations Plan/Recommendations: Continue POC Treatment Plan/Plan of Care Treatment,Training & Education: Yes Patient would benefit from OT for education, treatment and training to promote independence in ADL's, mobility, safety and/or upper extremity function for ADL's. Plan of Care: ADL Retraining, Cognitive Retraining, Functional Mobility, Group Exercise/Act as Ind, UE Funct Exercise/Act Treatment Duration: Nov 24, 2021 Frequency: At least 5 of 7 days/Wk (IRF) Estimated Hrs Per Day: 1.5 hours per day (75-90 min/day) Rehab Potential: Guarded Time/GCodes Start Time: 09:00 Stop Time: 10:00 Total Time Billed (hr/min): 60 Billed Treatment Time 1 visit ADL x3 (40 min) EX (20 min) Teressa Ventura OT October 31, 2021 10:05
[2021-10-31] MEDS: ENOXAPARIN 40 MG/0.4 ML (LOVENOX) SYR SC SCH (11:36)
--- NOTE | 2021-10-31 12:06 | Occupational Ther Daily Note ---
OT Current Status-Daily Note Subjective Pt reports pain back down to 2/10 Appearance Pt left sitting in recliner, all needs within reach ADL-Treatment Therapy Code Descriptions/Definitions Functional [place] Measure: 0=Not Assessed/NA 4=Minimal Assistance 1=Total Assistance 5=Supervision or Setup 2=Maximal Assistance 6=Modified [place] 3=Moderate Assistance 7=Complete IndependenceSCALE: Activities may be completed with or without assistive devices. 2-Hemgknrdfq-uhuymun completes the activity by him/herself with no assistance from a helper. 5-Set-up or Clean-up Assistance-helper sets up or cleans up; patient completes activity. [place] assists only prior to or following the activity. 4-Supervision or Touching Assistance-helper provides verbal cues and/or touching/steadying and/or contact guard assistance as patient completes activi ty. Assistance may be provided throughout the activity or intermittently. 3-Partial/Moderate Assistance-helper does LESS THAN HALF the effort. [place] lifts, holds or supports trunk or limbs, but provides less than half the effort. 2-Substantial/Maximal Assistance-helper does MORE THAN HALF the effort. [place] lifts or holds trunk or limbs and provides more than half the effort. 7-Guoutwnnb-whcdnm does ALL the effort. Patient does none of the effort to complete the activity. Or, the assistance of 2 or more helpers is required for the patient to complete the activity. If activity was not attempted, code reason: 7-Patient Refused. 9-Not Applicable-not attempted and the patient did not perform the activity before the current illness, exacerbation or injury. 10-Not Attempted due to Environmental Limitations-(lack of equipment, weather restraints, etc.). 88-Not Attempted due to Medical Conditions or Safety Concerns. Other Treatment Education/discussion on Reverse total shoulder protocol including: minimizing compensation at shoulder reinforcing importance of posture and scapular mobility Use of pillow/towel under arm for GH support when laying supine No shoulder extension past neutral (pulling pants up/tucking shirts in from behi nd) No excessive shoulder add, or IR no lifting>5# While seated, pt completed elbow/wrist/hand AROM 8x1, scapula retraction (to neutral only), PROM external rotation to neutral (0 degrees), PROM shoulder abduction, ~10 degrees, Week 2 goals: passive flex 60-90 degrees, scaption 60-90 degrees, ER (0 degrees), IR (0-30 degrees), Abd (60-90 degrees) Education OT Patient Education: Correct positioning, Exercise program, Purpose of tx/functional activities, Reviewed precautions, Safety issues Teaching Recipient: Patient Teaching Methods: Demonstration, Discussion Response to Teaching: Verbalize Understanding, Return Demonstration, Reinforcement Needed OT Short Term Goals Short Term Goals Time Frame: November 10, 2021 Eatin Oral hygiene: 4 Toileting hygiene: 4 Shower/bathe self: 3 Upper body dressin Lower body dressin Putting on/taking off footwear: 3 OT Manager Trade Marketing Goals Manager Trade Marketing Goals Time Frame: Nov 24, 2021 Eating (QC): 5 Oral Hygiene (QC): 5 Toileting Hygiene (QC): 6 Shower/Bathe Self (QC): 4 Upper Body Dressing (QC): 4 Lower Body Dressing (QC): 5 On/Off Footwear (QC): 5 1=Demonstrate adherence to instructed precautions during ADL tasks. 2=Patient will verbalize/demonstrate understanding of assistive devices/modifications for ADL. 3=Patient will improve strength/tolerance for activity to enable patient to perform ADL's. OT Education/Plan Problem List/Assessment Assessment: Decreased Activ Tolerance, Decreased UE Strength, Impaired Cognition, Impaired Coordination, Impaired Funct Balance, Impaired I ADL's, Impaired Self-Care Skills, Restricted Funct UE ROM Discharge Recommendations Plan/Recommendations: Continue POC Treatment Plan/Plan of Care Treatment,Training & Education: Yes Patient would benefit from OT for education, treatment and training to promote independence in ADL's, mobility, safety and/or upper extremity function for ADL's. Plan of Care: ADL Retraining, Cognitive Retraining, Functional Mobility, Group Exercise/Act as Ind, UE Funct Exercise/Act Treatment Duration: Nov 24, 2021 Frequency: At least 5 of 7 days/Wk (IRF) Estimated Hrs Per Day: 1.5 hours per day (75-90 min/day) Rehab Potential: Guarded Time/GCodes Start Time: 11:40 Stop Time: 12:05 Total Time Billed (hr/min): 25 Billed Treatment Time 1 visit EX (15 min) MAN (10 min) Teressa Ventura OT October 31, 2021 12:06
--- NOTE | 2021-10-31 12:50 | Speech Therapy Daily Note ---
Speech Daily Progress Note Subjective Date Seen by Provider: October 31, 2021 Time Seen by Provider: 08:30 The patient was seated upright in her recliner, awake and alert upon entrance to her room by the clinician. The patient greeted the clinician appropriately and was agreeable to participation in the cognitive linguistic treatment session. Objective The patient stated her cognition had returned to baseline and does not feel confused at this time. The patient does display appropriate conversational exchanges, as well as, orientation. The patient was provided the SLUMS to assess for current cognitive linguistic skills: - SLUMS: The patient demonstrated a result of +29/30 on the SLUMS correlating to neurocognitive skills within normal limits. The patient received one point deducted as she was able to name 14 animals within a one minute period (WNL=15). Upon admission, the patient displayed a result of +23/30 on the SLUMS. The patient has displayed great cognitive improvement and will be discharged from cognitive services at this time. Expression of Ideas/Wants: Expression (4) Understanding Verbal Content: Understands (4) Brief Interview-Mental Status: Yes Repetition of Three Words: Three (3) Temporal Orientation: Year: Correct (3) Temporal Orientation: Month: Accurate within 5 days(2) Temporal Orientation: Day: Correct (1) Recall : Wear to say "Sock": Yes, no cue required (2) Recall : Color: Yes, no cue required (2) Recall : Bed: Yes, no cue required (2) Memory/Recall Ability: That he or she is in a hsp/hsp unit, season, staff names Assessment Assessment Current Status: Excellent Progress Treatment Plan Discontinue ST Speech Short Term Goals Short Term Goals Short Term Goals Pt will demonstrate 90% accuracy with memory and functional problem solving exercises when given minimal verbal/visual cues Speech Fdc Goals Sales Promotion Coordinator Goals The patient will demonstrate improve cognitive linguistic skills for safe discharge to the least restricted environment. Speech-Plan Treatment Plan Speech Therapy Treatment Plan: Discontinue ST Treatment Duration: October 28, 2021 Frequency: Modified Program (IRF) Estimated Hrs Per Day: Other Rehab Potential: Good Safety Risks/Education Teaching Recipient: Patient Teaching Methods: Discussion Response to Teaching: Verbalize Understanding Education Topics Provided: Results of SLUMS, Speech Pathology Plan of Care Time Speech Therapy Time In: 08:30 Speech Therapy Time Out: 09:00 Total Billed Time: 30 Billed Treatment Time 1FILIPPO [address] ST October 31, 2021 12:50
--- NOTE | 2021-10-31 12:52 | Therapy Team Discharge Summary ---
Therapy Discharge Summary Discharge Recommendations Date of Discharge Physical Therapy Roll Left to Right (QC): 3 Sit to Lying (QC): 3 Lying to Sitting/Side of Bed(Q: 3 Sit to Stand (QC): 3 Chair/Loh-nq-Dynzz Xfer(QC): 3 Toilet Transfer (QC): 5 Car Transfer (QC): 3 Does the Patient Walk: Yes Mode of Locomotion: Walk Anticipated Mode of Locomotion: Walk Walk 10 feet (QC): 4 Walk 50 ft with 2 Turns(QC): 4 Walk 150 ft (QC): 4 Walking 10ft on uneven surface: 88 Distance: 5' Gait Assistive Device: Cane Large Base Quad Wheel 50 ft with 2 turns (QC): 1 Wheel 150 ft (QC): 1 1 Step (curb) (QC): 88 4 Steps (QC): 88 12 Steps (QC): 88 Balance Sitting Static: Fair Balance Sitting Dynamic: Fair Balance-Standing Static: Poor Picking up an Object (QC): 88 Occupational Therapy Decreased Activ Tolerance, Decreased UE Strength, Impaired Cognition, Impaired Coordination, Impaired Funct Balance, Impaired I ADL's, Impaired Self-Care Skills, Restricted Funct UE ROM Eating (QC): 3 (per patient report) Oral Hygiene (QC): 3 Shower/Bathe Self (QC): 3 Upper Body Dressing (QC): 1 Lower Body Dressing (QC): 3 On/Off Footwear (QC): 4 (dependent to don compression stockings) Toileting Hygiene (QC): 3 Speech-Language Pathology Expression of Ideas/Wants: Expression (4) Understanding Verbal Content: Understands (4) Brief Interview-Mental Status: Yes Repetition of Three Words: Three (3) Temporal Orientation: Year: Correct (3) Temporal Orientation: Month: Accurate within 5 days(2) Temporal Orientation: Day: Correct (1) Recall : Wear to say "Sock": Yes, no cue required (2) Recall : Color: Yes, no cue required (2) Recall : Bed: Yes, no cue required (2) Memory/Recall Ability: That he or she is in a hsp/hsp unit, staff names, season Upon admission, the patient displayed a great level of confusion. At the current time, the patient reports baseline cognition and has improved SLUMS results from + to +. The patient does not display confusion and remains 100% oriented, independently. The patient met her ST goals at this time. PT Penitentiary Goals Central Sterile Supply Technician Goals PT Central Sterile Supply Technician Goals Time Frame: Nov 17, 2021 Roll Left to Right (QC): 6 Sit to Lying (QC): 4 (CGA) Lying-Sitting on Side/Bed(QC): 4 (CGA) Sit to Stand (QC): 4 (SBA) Chair/Chr-pa-Hzuqc Xfer(QC): 4 (SBA) Car Transfer (QC): 4 (SBA) Does the Patient Walk: Yes Walk 10 feet (QC): 4 (SBA) Walk 10ft-Uneven Surface(QC): 4 (SBA) Walk 50ft with 2 Turns (QC): 4 (SBA) Walk 150 ft (QC): 4 (SBA) Wheel 50 feet with 2 turns (QC: 9 1 Step (curb) (QC): 4 (CGA) 4 Steps (QC): 88 12 Steps (QC): 88 Picking up an Object (QC): 4 (SA with international accounting manager) OT Central Sterile Supply Technician Goals Penitentiary Goals Time Frame: Nov 24, 2021 Eating (QC): 5 Oral Hygiene (QC): 5 Shower/Bathe Self (QC): 4 Upper Body Dressing (QC): 4 Lower Body Dressing (QC): 5 On/Off Footwear (QC): 5 Toileting Hygiene (QC): 6 Toilet/Commode Transfer (QC): 4 (SBA) 1=Demonstrate adherence to instructed precautions during ADL tasks. 2=Patient will verbalize/demonstrate understanding of assistive devices/modifications for ADL. 3=Patient will improve strength/tolerance for activity to enable patient to perform ADL's. Speech Central Sterile Supply Technician Goals Penitentiary Goals The patient will demonstrate improve cognitive linguistic skills for safe discharge to the least restricted environment. MET GISELE TURNER October 31, 2021 12:52
--- NOTE | 2021-10-31 13:14 | Physical Therapy Daily Note ---
PT Daily Note-Current Subjective [id number] Upon arrival, pt was seated in recliner. pt states that she did not sleep very well. Pt agrees to PT. [id number] Upon arrival, pt was seated in recliner. Pt agrees to PT. Pain Comment: Pt reports pain, but not rated. Mental Status Patient Orientation: Person, Situation Attachments: Other-See Comments (Sling) Pt followed instructions, But would would get distracted, pt continued task when PT reinforced it with VC. Transfers SCALE: Activities may be completed with or without assistive devices. 3-Fpvqfuwwsl-ufpomzw completes the activity by him/herself with no assistance from a helper. 5-Set-up or Clean-up Assistance-helper sets up or cleans up; patient completes activity. [place] assists only prior to or following the activity. 4-Supervision or Touching Assistance-helper provides verbal cues and/or touching/steadying and/or contact guard assistance as patient completes activity. Assistance may be provided throughout the activity or intermittently. 3-Partial/Moderate Assistance-helper does LESS THAN HALF the effort. [place] lifts, holds or supports trunk or limbs, but provides less than half the effort. 2-Substantial/Maximal Assistance-helper does MORE THAN HALF the effort. [place] lifts or holds trunk or limbs and provides more than half the effort. 5-Dkgsosnga-wxzvls does ALL the effort. Patient does none of the effort to complete the activity. Or, the assistance of 2 or more helpers is required for the patient to complete the activity. If activity was not attempted, code reason: 7-Patient Refused. 9-Not Applicable-not attempted and the patient did not perform the activity before the current illness, exacerbation or injury. 10-Not Attempted due to Environmental Limitations-(lack of equipment, weather restraints, etc.). 88-Not Attempted due to Medical Conditions or Safety Concerns. Weight Bearing NWB right shoulder, sling on Gait Training Does the Patient Walk?: Yes Distance: 88' Walk 10 feet (QC): 4 Walk 50 ft with 2 Turns(QC): 4 Gait Persons Needed: 1 Gait Assistive Device: Cane Small Base Quad [id number] Pt ambulated 88' with a quad cane, pt demonstrated step to and step through GT pattern, it depended on how fast she was ambulating. Pt did not show any LOB. [id number] Pt ambulated 88' with a quad cane, pt demonstrated step to and step through GT pattern, it depended on how fast she was ambulating. Pt did not show any LOB. Exercises Supine Ex: Ankle pumps, Heel Slides, Straight leg raise, Hip abd/add Supine Reps: 15 Seated Therapy Exercises: Ankle pumps, Sit to stand, Long arc quads, Hip flexion, Hip abd/add Seated Reps: 15 Treatments [id number] Pt performed and completed all Exs listed above. Pt ambulated from room to RN station and back. During PT session, pt stated that she needed to us the BR. Once PT was concluded, pt was seated back in recliner with call light and tray in reach and all needs met. [id number] Pt ambulated from room to RN station and back to room. During tx session, pt used the BR. Once PT was concluded, pt was seated in recliner with call ligh and tray in reach and all needs met. Assessment Current Status: Good Progress Pt would benefit from continued PT to improve on strength, GT, and activity tolerance. PT Short Term Goals Short Term Goals Time Frame: November 03, 2021 Roll Left & Right: 4 Sit to lyin (Sara) Lying to sitting on side of be: 3 (Sara) Sit to stand: 4 (CGA) Chair/xyq-vt-pdddz transfer: 4 (CGA) Walk 10 feet: 4 (CGA) Walk 50 feet with two turns: 4 (CGA) PT Audio Specialist Goals Halfway Goals PT Audio Specialist Goals Time Frame: Nov 17, 2021 Roll Left & Right (QC): 6 Sit to Lying (QC): 4 (CGA) Lying-Sitting on Side/Bed(QC): 4 (CGA) Sit to Stand (QC): 4 (SBA) Chair/Ncz-fe-Nkecw Xfer(QC): 4 (SBA) Toilet Transfer (QC): 4 (SBA) Car Transfer (QC): 4 (SBA) Does the Patient Walk: Yes Walk 10 feet (QC): 4 (SBA) Walk 50ft with 2 Turns (QC): 4 (SBA) Walk 150 ft (QC): 4 (SBA) Walking 10ft on Uneven Surface: 4 (SBA) 1 Step (curb) (QC): 4 (CGA) 4 Steps (QC): 88 12 Steps (QC): 88 Picking up an Object (QC): 4 (SA with court bailiff) Wheel 50 feet with 2 turns (QC: 9 Wheel 150 feet: 9 PT Plan Problem List Problem List: Activity Tolerance, Functional Strength, Gait Treatment/Plan Treatment Plan: Continue Plan of Care Treatment Plan: Bed Mobility, Education, Functional Activity [place], Functional Strength, Group Therapy, Gait, Safety, Therapeutic Exercise, Transfers Treatment Duration: Nov 17, 2021 Frequency: At least 5 of 7 days/Wk (IRF) Estimated Hrs Per Day: 1.5 hours per day Patient and/or Family Agrees t: Yes Safety Risks/Education Patient Education: Transfer Techniques, Correct Positioning, Safety Issues Teaching Recipient: Patient Teaching Methods: Discussion Response to Teaching: Verbalize Understanding Pt stood while in BR without supervision, PT informs pt that she needs someone with her before she stands, for her safety. Time/GCodes Time In: 1000 Time Out: 1100 Total Billed Treatment Time: 60 Total Billed Treatment [id number] 1, EX 2 (30), GT 2 (30) 1, [id number] 1, FA (15) YAZMIN MIX CONCHE LOADER AND UNLOADER October 31, 2021 13:14
--- NOTE | 2021-10-31 13:51 | Progress Note ---
MIRYAM ARGUELLO 10/31/21 1351: Progress Note Subjective: HPI: The patient was sitting in her chair this morning. She was doing well and denied any acute events overnight. Bowels are moving well. She did report some SOB on exertion, but did not seem overly concerned about this complaint. ROS: Constitutional: no fevers, no chills. EENTM: no vision changes Respiratory: no SOB, no cough Cardiovascular: no chest pain, no palpitations Gastrointestinal: no constipation, no vomiting Musculoskeletal: no symptoms reported, R arm continues in sling Skin: no change in color, no concerning lesions Psychiatric/Neurological: no anxiety, no depression Objective: Vitals: T: 36.5, HR: 62, BP: 173/80, 99 % room air PE: General Appearance: No Apparent Distress, WD/WN Eyes: Bilateral Eye Normal Inspection, Bilateral Eye PERRL HEENT: PERRL/EOMI, mocuous membranes moist Neck: normal inspection normal ROM Respiratory: Chest Non Tender, Lungs Clear, Normal Breath Sounds, No Accessory Muscle Use, No Respiratory Distress Cardiovascular: Regular Rate, Rhythm, No Edema, No Gallop, No JVD, No Murmur, Normal Peripheral Pulses Gastrointestinal: Normal Bowel Sounds, No Organomegaly, No Pulsatile Mass, Non Tender, Soft Extremity: Normal Capillary Refill, Normal Inspection, R arm continues in sling, Non Tender, No Calf Tenderness, No Pedal Edema Neurologic/Psychiatric: Alert, Oriented x3, No Motor/Sensory Deficits, Normal Mood/Affect Skin: Normal Color, Warm/Dry Assessment: Right humerus fracture status post uncomplicated repair Debility with slow recovery 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 PT is gaining strength and stamina. We will continue to monitor her renal function, and blood sugars. Continue with sliding scale insulin. Monitor hemoglobin, which is trending upward. JULIANE KRUSE DO 11/01/21 0522: Supervisory-Addendum Brief Verification & Attestation Participated in pt care: history, MDM, physical Personally performed: exam, history, MDM, supervision of care Care discussed with: Medical Student Procedures: n/a Results interpretation: Verified all documentation Verification and Attestation of Medical Student E/M Service A medical student performed and documented this service in my presence. I review ed and verified all information documented by the medical student and made modifications to such information, when appropriate. I personally performed the physical exam and medical decision making. Juliane Kruse, November 01, 2021,05:22 MIRYAM ARGUELLO October 31, 2021 13:51 JULIANE KRUSE DO November 01, 2021 05:22
[2021-10-31 20:22] VITALS: BP 153/78
[2021-10-31] MEDS: FERROUS SULF 325 MG (IRON) TAB PO SCH (20:59)
[2021-10-31] MEDS: VITAMIN D3 25 MCG (1,000 UNITS) TABLET PO SCH (21:00)
[2021-10-31] MEDS: rOPINIRole 1 MG (REQUIP) TABLET PO SCH (21:00)
[2021-10-31] MEDS: FLUTICASONE NASAL SPRAY (FLONASE) 16 GM BTL NS SCH (21:02)
[2021-11-01] MEDS: HYDROcodone/APAP 7.5 MG/325 MG (LORTAB, LORCET PLUS) TABLET PO PRN ×3 (01:53→16:35)
--- NOTE | 2021-11-01 06:00 | PM&R Progress Note ---
Subjective HPI/CC On Admission Date Seen by Provider: November 01, 2021 Time Seen by Provider: 10:00 Subjective/Events-last exam 11/01/2021: Pt is doing really well Walking with a cane Bowels moved yesterday Has a headache at times Overall dramatic improvement 10/31/2021: Pt dramatically improved Hemoglobin 8.8 Lortab given for pain Creatinine was 1.18 10/30/2021: Pt dramatically improved Completely lucid and no concerns Hemoglobin kamari to an appropriate level after 1 unit given a few days ago Bowels are moving No pain reported 10/29/21: Pt doing well No major issues overnight Will He[place]ock the D5NS normal saline Checked labs today but they are pending No falls 10/28/2021: Pt is dramatically improved Hemoglobin was 6.7, receiving one unit of blood No midline will be available because of history of breast cancer on the left with lymph node removal. High risk for lymphadenitis and on the right is the humerus fracture. Having a bowel movement now Potassium supplement also Review of Systems Musculoskeletal: arm pain Objective Exam Vital Signs Vital Signs Date Time Temp Pulse Resp B/P (MAP) Pulse Ox O2 Delivery O2 Flow Rate FiO2 11/01/21 20:00 99 Room Air 11/01/21 19:13 36.9 56 20 146/54 (84) Capillary Refill : General Appearance: WD/WN, Anxious, Chronically ill, Mild Distress HEENT: PERRL/EOMI, Normal ENT Inspection, Pharynx Normal Neck: Full Range of Motion, Normal Inspection, Non Tender, Supple, Carotid Bruit Respiratory: Chest Non Tender, Lungs Clear, Normal Breath Sounds, No Accessory Muscle Use, No Respiratory Distress Cardiovascular: Regular Rate, Rhythm, No Edema, No Gallop, No JVD, No Murmur, Normal Peripheral Pulses Gastrointestinal: Normal Bowel Sounds, No Organomegaly, No Pulsatile Mass, Non Tender, Soft Back: Normal Inspection, No CVA Tenderness, No Vertebral Tenderness Extremity: Normal Capillary Refill, Normal Inspection, Normal Range of Motion (Except right arm in sling), Non Tender, No Calf Tenderness, No Pedal Edema Neurologic/Psychiatric: Alert, Oriented x3, No Motor/Sensory Deficits, Normal Mood/Affect, 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 FIM Transfers Therapy Code Descriptions/Definitions Functional [place] Measure: 0=Not Assessed/NA 4=Minimal Assistance 1=Total Assistance 5=Supervision or Setup 2=Maximal Assistance 6=Modified [place] 3=Moderate Assistance 7=Complete IndependenceSCALE: Activities may be completed with or without assistive devices. 1-Awpmpejhel-mxgpqau completes the activity by him/herself with no assistance from a helper. 5-Set-up or Clean-up Assistance-helper sets up or cleans up; patient completes activity. [place] assists only prior to or following the activity. 4-Supervision or Touching Assistance-helper provides verbal cues and/or touching/steadying and/or contact guard assistance as patient completes activity. Assistance may be provided throughout the activity or intermittently. 3-Partial/Moderate Assistance-helper does LESS THAN HALF the effort. [place] lifts, holds or supports trunk or limbs, but provides less than half the effort. 2-Substantial/Maximal Assistance-helper does MORE THAN HALF the effort. [place] lifts or holds trunk or limbs and provides more than half the effort. 6-Jadzxjqff-gawihr does ALL the effort. Patient does none of the effort to complete the activity. Or, the assistance of 2 or more helpers is required for the patient to complete the activity. If activity was not attempted, code reason: 7-Patient Refused. 9-Not Applicable-not attempted and the patient did not perform the activity before the current illness, exacerbation or injury. 10-Not Attempted due to Environmental Limitations-(lack of equipment, weather restraints, etc.). 88-Not Attempted due to Medical Conditions or Safety Concerns. Roll Left to Right (QC): 3 Sit to Lying (QC): 3 Sit to Stand (QC): 3 Chair/Ekt-dh-Acgki Xfer(QC): 3 Car Transfer (QC): 3 Gait Training Does the Patient Walk?: Yes Distance: 88' Walk 10 feet (QC): 4 Walk 50 ft with 2 Turns(QC): 4 Walk 150 ft (QC): 4 Walking 10ft/uneven surface-QC: 88 Gait Persons Needed: 1 Gait Assistive Device: Cane Small Base Quad Wheelchair Training Wheel 50 ft with 2 turns (QC): 1 Wheel 150 ft (QC): 1 Stair Training 1 Step (curb) (QC): 88 4 Steps (QC): 88 12 Steps (QC): 88 Balance Picking up an Object (QC): 88 ADL-Treatment Eating (QC): 3 (per patient report) Oral Hygiene (QC): 3 Shower/Bathe Self (QC): 3 Upper Body Dressing (QC): 1 Lower Body Dressing (QC): 3 On/Off Footwear (QC): 4 (dependent to don compression stockings) Toileting Hygiene (QC): 3 Toilet Transfer (QC): 4 Assessment/Plan Assessment and Plan Assess & Plan/Chief Complaint Assessment: Right humerus fracture status post uncomplicated repair Slow recovery with physical debility 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 Chronic kidney disease Diabetes Current hypoglycemia will hold all diabetic meds Severe oversedation with baclofen Severe LENNY on BiPAP Poor appetite Osteoarthritis Anemia requiring 1 unit of transfusion on 10/28/2021 Plan: Gentle IV fluids of D5 NS Hold all diabetic meds Supportive care Use BiPAP 10/28/2021: Transfuse 1 unit today Supportive care Much improved status 10/29/21: Monitor sugar Fall risk 10/30/2021: Monitor sugar Supportive care 10/31/2021: Supportive care Monitor closely 11/01/2021: Continue aggressive rehab Supportive care (1) Right humeral fracture Status: Acute (2) Debility, unspecified Status: Acute (3) Physical debility Status: Acute LINDSAY KRUSE DO November 01, 2021 06:00
[2021-11-01] MEDS: inSUlin ASPART (NovoLOG) 1 UNIT/0.01 ML (CHARGE PER UNIT) SC SCH ×4 (06:46→20:13)
[2021-11-01] MEDS: LEVOTHYROXINE 75 MCG (LEVOTHROID) TABLET PO SCH (06:46)
[2021-11-01 07:47] VITALS: BP 140/64
[2021-11-01] MEDS: KCL 10 MEQ TAB (MICRO K) PO SCH (08:12)
[2021-11-01] MEDS: BUMETANIDE 1 MG (BUMEX) TAB PO SCH (08:12)
[2021-11-01] MEDS: meTOprolol TARTRATE 50 MG (LOPRESSOR) TAB PO SCH ×2 (08:12→21:33)
[2021-11-01] MEDS: LORATADINE (CLARITIN) 10 MG TAB PO SCH (08:12)
[2021-11-01] MEDS: PANTOPRAZOLE 20 MG TABLET (PROTONIX) PO SCH ×2 (08:12→21:33)
[2021-11-01] MEDS: CYANOCOBALAMIN 1,000 MCG (VITAMIN B-12) TABLET PO SCH (08:13)
[2021-11-01] MEDS: GABAPENTIN 600 MG (NEURONTIN) TAB PO SCH ×3 (08:13→21:33)
[2021-11-01] MEDS: DOCUSATE SODIUM 100 MG (COLACE) CAP PO SCH ×2 (08:15→21:33)
[2021-11-01] MEDS: polyethylene glycoL POWDER 17 GM (MIRALAX) PACK PO SCH ×2 (08:15→21:35)
[2021-11-01] MEDS: SENNA W/DOCUSATE (SENOKOT S) TABLET PO SCH ×2 (08:15→21:33)
--- NOTE | 2021-11-01 10:11 | Occupational Ther Daily Note ---
OT Current Status-Daily Note Subjective Pt reports more pain in L shoulder secondary to arthritis. Pain in L shoulder rated as 8/10, pain in R as 3/10. Pt reports she is unable to have any more pain meds until ~1000. Appearance Pt returned to sitting in recliner, all needs within reach. Mental Status/Objective Patient Orientation: Person, Place, Situation Attachments: Other-See Comments (RUE sling ) ADL-Treatment Therapy Code Descriptions/Definitions Functional [place] Measure: 0=Not Assessed/NA 4=Minimal Assistance 1=Total Assistance 5=Supervision or Setup 2=Maximal Assistance 6=Modified [place] 3=Moderate Assistance 7=Complete IndependenceSCALE: Activities may be completed with or without assistive devices. 8-Xobnmgolmt-ycstkni completes the activity by him/herself with no assistance from a helper. 5-Set-up or Clean-up Assistance-helper sets up or cleans up; patient completes activity. [place] assists only prior to or following the activity. 4-Supervision or Touching Assistance-helper provides verbal cues and/or touching/steadying and/or contact guard assistance as patient completes activity. Assistance may be provided throughout the activity or intermittently. 3-Partial/Moderate Assistance-helper does LESS THAN HALF the effort. [place] lifts, holds or supports trunk or limbs, but provides less than half the effort. 2-Substantial/Maximal Assistance-helper does MORE THAN HALF the effort. [place] l ifts or holds trunk or limbs and provides more than half the effort. 8-Ugtdffqxt-evadyd does ALL the effort. Patient does none of the effort to complete the activity. Or, the assistance of 2 or more helpers is required for the patient to complete the activity. If activity was not attempted, code reason: 7-Patient Refused. 9-Not Applicable-not attempted and the patient did not perform the activity before the current illness, exacerbation or injury. 10-Not Attempted due to Environmental Limitations-(lack of equipment, weather restraints, etc.). 88-Not Attempted due to Medical Conditions or Safety Concerns. Shower/Bathe Self (QC): 3 Upper Body Dressing (QC): 2 Lower Body Dressing (QC): 3 On/Off Footwear: 4 (dependent to don compression stockings) Partial Sponge bath performed seated in chair. Post reminder on compensatory method, pt able to wash LUE/axilla without assist. Min a to slightly abduct RUE in order for patient to wash axilla. Improved shoulder abduction notable; ~35 degrees. Red rash observed under L breast. RN notified. Education to patient on hygiene and keeping area clean and dry. With steadying assist, She stood to wash marco area, assist needed to wash backside. LE's not addressed this date. She was able to thread BLE's into underwear. Minimal assist needed to pull up over R hip due to difficulty reaching with LUE. Post demonstration, pt still required max a to don dress as she required assist to thread RUE, and bring over head. Pt was able to thread L into sleeve but then needed minimal assistance due to dress getting caught on multiple arm bands. Pt able to stand and pull down below torso with supervision. Mod a needed to don/doff RUE sling; cues/assist for correct positioning. Dependent to don compression stockings, pt able to don bilateral socks with extra time. Other Treatment Reminder on Reverse total shoulder protocol including: minimizing compensation at shoulder reinforcing importance of posture and scapular mobility No shoulder extension past neutral (pulling pants up/tucking shirts in from behind) No excessive shoulder add, or IR no lifting>5# While seated, pt completed: elbow/wrist/hand AROM 8x1, PROM external rotation to neutral (0 degrees), 8x1 PROM shoulder abduction-Improved to ~35 degrees, 6x1 PROM shoulder flexion to ~20 degrees, 6x1 Week 2 goals: passive flex 60-90 degrees, scaption 60-90 degrees, ER (0 degrees), IR (0-30 degrees), Abd (60-90 degrees) Education OT Patient Education: Correct positioning, Energy conservation, Exercise program, Modified ADL techniques, Progress toward Goal/Update tx plan, Purpose of tx/functional activities, Reviewed precautions, Rehab process, Safety issues Teaching Recipient: Patient Teaching Methods: Demonstration, Discussion Response to Teaching: Verbalize Understanding, Return Demonstration, Reinforcement Needed OT Short Term Goals Short Term Goals Time Frame: November 10, 2021 Eatin Oral hygiene: 4 Toileting hygiene: 4 Shower/bathe self: 3 Upper body dressin Lower body dressin Putting on/taking off footwear: 3 OT Jail Goals Jail Goals Time Frame: Nov 24, 2021 Eating (QC): 5 Oral Hygiene (QC): 5 Toileting Hygiene (QC): 6 Shower/Bathe Self (QC): 4 Upper Body Dressing (QC): 4 Lower Body Dressing (QC): 5 On/Off Footwear (QC): 5 1=Demonstrate adherence to instructed precautions during ADL tasks. 2=Patient will verbalize/demonstrate understanding of assistive devices/modifications for ADL. 3=Patient will improve strength/tolerance for activity to enable patient to perform ADL's. OT Education/Plan Problem List/Assessment Assessment: Decreased Activ Tolerance, Decreased UE Strength, Impaired Coordination, Impaired Funct Balance, Impaired I ADL's, Impaired Self-Care Skills, Restricted Funct UE ROM Discharge Recommendations Plan/Recommendations: Continue POC Treatment Plan/Plan of Care Treatment,Training & Education: Yes Patient would benefit from OT for education, treatment and training to promote independence in ADL's, mobility, safety and/or upper extremity function for ADL's. Plan of Care: ADL Retraining, Cognitive Retraining, Functional Mobility, Group Exercise/Act as Ind, UE Funct Exercise/Act Treatment Duration: Nov 24, 2021 Frequency: At least 5 of 7 days/Wk (IRF) Estimated Hrs Per Day: 1.5 hours per day (75-90 min/day) Rehab Potential: Good Time/GCodes Start Time: 09:00 Stop Time: 10:00 Total Time Billed (hr/min): 60 Billed Treatment Time 1 visit ADL x2 (35 min) EX (10 min) MAN (15 min) Teressa Ventura OT November 01, 2021 10:11
--- NOTE | 2021-11-01 10:58 | Physical Therapy Daily Note ---
PT Daily Note-Current Subjective [id number] Upon arrival, pt was seated in recliner. Pt states that she did no sleep much. Pt reports pain in affected shoulder, pt states "it must be healing." Pt agrees to PT. [id number] Upon arrival, pt was seated in recliner. Pt agrees to PT. Pain Pain Description: Ache, Burning Comment: Pt reports pain, but not rated. Mental Status Patient Orientation: Person, Place, Situation Transfers SCALE: Activities may be completed with or without assistive devices. 1-Sossuvxoxw-zbuvwdn completes the activity by him/herself with no assistance from a helper. 5-Set-up or Clean-up Assistance-helper sets up or cleans up; patient completes activity. [place] assists only prior to or following the activity. 4-Supervision or Touching Assistance-helper provides verbal cues and/or touching/steadying and/or contact guard assistance as patient completes activity. Assistance may be provided throughout the activity or intermittently. 3-Partial/Moderate Assistance-helper does LESS THAN HALF the effort. [place] lifts, holds or supports trunk or limbs, but provides less than half the effort. 2-Substantial/Maximal Assistance-helper does MORE THAN HALF the effort. [place] lifts or holds trunk or limbs and provides more than half the effort. 0-Whxrkgftw-plrpab does ALL the effort. Patient does none of the effort to complete the activity. Or, the assistance of 2 or more helpers is required for the patient to complete the activity. If activity was not attempted, code reason: 7-Patient Refused. 9-Not Applicable-not attempted and the patient did not perform the activity before the current illness, exacerbation or injury. 10-Not Attempted due to Environmental Limitations-(lack of equipment, weather restraints, etc.). 88-Not Attempted due to Medical Conditions or Safety Concerns. Sit to Stand (QC): 4 Toilet Transfer (QC): 4 Weight Bearing NWB right shoulder, sling on Gait Training Does the Patient Walk?: Yes Distance: 96' Walk 10 feet (QC): 4 Walk 50 ft with 2 Turns(QC): 4 Gait Persons Needed: 1 Gait Assistive Device: Cane Small Base Quad [id number] Pt ambulated 96', from room around lobby and back to room. Pt ambulated with a very slow, reciprocal, step through GT pattern, pt demonstrates no LOB. Pt required a RB after ambulation. [id number] Pt ambulated with quad cane from room around 2nd floor lobby and back to room, pt was CGA. Pt required a RB, once she was back to room. Pt showed no LOB, but showed a slight step to GT pattern. Wheelchair Training Does the Pt Use a Wheelchair?: No Exercises Supine Ex: Ankle pumps, Heel Slides, Knee to chest (10), Straight leg raise, Hip abd/add Supine Reps: 20 Seated Therapy Exercises: Ankle pumps, Long arc quads, Hip flexion Seated Reps: 20 Treatments [id number] Pt completed all Exs listed above. Pt ambulated from room around [facility] and back to room. During tx session pt used the BR. Once tx session was concluded, pt was seated back in recliner with call light and tray in reach and all needs met. [id number] Pt completed all seated Exs listed above. Pt ambulated from room around [facility] area, and back to room. Once PT was concluded, pt was seated back in recliner, with call light and tray in reach, and all needs were met. Assessment Current Status: Good Progress Pt would benefit from continued PT to improve on strength, GT, and activity tolerance PT Short Term Goals Short Term Goals Time Frame: November 03, 2021 Roll Left & Right: 4 Sit to lyin (Sara) Lying to sitting on side of be: 3 (Sara) Sit to stand: 4 (CGA) Chair/cqu-ao-hnakn transfer: 4 (CGA) Walk 10 feet: 4 (CGA) Walk 50 feet with two turns: 4 (CGA) PT Alf Goals Alf Goals PT Alf Goals Time Frame: Nov 17, 2021 Roll Left & Right (QC): 6 Sit to Lying (QC): 4 (CGA) Lying-Sitting on Side/Bed(QC): 4 (CGA) Sit to Stand (QC): 4 (SBA) Chair/Lai-dw-Yhpya Xfer(QC): 4 (SBA) Toilet Transfer (QC): 4 (SBA) Car Transfer (QC): 4 (SBA) Does the Patient Walk: Yes Walk 10 feet (QC): 4 (SBA) Walk 50ft with 2 Turns (QC): 4 (SBA) Walk 150 ft (QC): 4 (SBA) Walking 10ft on Uneven Surface: 4 (SBA) 1 Step (curb) (QC): 4 (CGA) 4 Steps (QC): 88 12 Steps (QC): 88 Picking up an Object (QC): 4 (SA with still tender) Wheel 50 feet with 2 turns (QC: 9 Wheel 150 feet: 9 PT Plan Problem List Problem List: Activity Tolerance, Functional Strength, Gait Treatment/Plan Treatment Plan: Continue Plan of Care Treatment Plan: Bed Mobility, Education, Functional Activity [place], Functional Strength, Group Therapy, Gait, Safety, Therapeutic Exercise, Transfers Treatment Duration: Nov 17, 2021 Frequency: At least 5 of 7 days/Wk (IRF) Estimated Hrs Per Day: 1.5 hours per day Patient and/or Family Agrees t: Yes Safety Risks/Education Patient Education: Transfer Techniques Teaching Recipient: Patient Teaching Methods: Discussion Response to Teaching: Verbalize Understanding Time/GCodes Time In: 1000 Time Out: 1100 Total Billed Treatment Time: 60 Total Billed Treatment 1, FA 3 (40), GT (20) [id number] 1, EX (15), GT (15) YAZMIN MIX SALES REPRESENTATIVE [facility] November 01, 2021 10:58
[2021-11-01] MEDS: ENOXAPARIN 40 MG/0.4 ML (LOVENOX) SYR SC SCH (11:51)
--- NOTE | 2021-11-01 12:02 | Occupational Ther Daily Note ---
OT Current Status-Daily Note Subjective Pt reports 2/10 pain in R shoulder, agreeable to exercises. Appearance Pt left sitting in chair, all needs within reach. ADL-Treatment Therapy Code Descriptions/Definitions Functional [place] Measure: 0=Not Assessed/NA 4=Minimal Assistance 1=Total Assistance 5=Supervision or Setup 2=Maximal Assistance 6=Modified [place] 3=Moderate Assistance 7=Complete IndependenceSCALE: Activities may be completed with or without assistive devices. 8-Lzwojbrkyp-tsuiaqp completes the activity by him/herself with no assistance from a helper. 5-Set-up or Clean-up Assistance-helper sets up or cleans up; patient completes activity. [place] assists only prior to or following the activity. 4-Supervision or Touching Assistance-helper provides verbal cues and/or touching/steadying and/or contact guard assistance as patient completes activity. Assistance may be provided throughout the activity or intermittently. 3-Partial/Moderate Assistance-helper does LESS THAN HALF the effort. [place] lifts, holds or supports trunk or limbs, but provides less than half the effort. 2-Substantial/Maximal Assistance-helper does MORE THAN HALF the effort. [place] lifts or holds trunk or limbs and provides more than half the effort. 3-[place]-htozqu does ALL the effort. Patient does none of the effort to complete the activity. Or, the assistance of 2 or more helpers is required for the patient to complete the activity. If activity was not attempted, code reason: 7-Patient Refused. 9-Not Applicable-not attempted and the patient did not perform the activity before the current illness, exacerbation or injury. 10-Not Attempted due to Environmental Limitations-(lack of equipment, weather restraints, etc.). 88-Not Attempted due to Medical Conditions or Safety Concerns. Other Treatment While seated, pt completed: elbow/wrist/hand AROM 8x1, PROM external rotation to neutral (0 degrees), 8x1 PROM shoulder abduction-Improved to ~35 degrees, 6x1 PROM shoulder flexion to ~20 degrees, 6x1 PROM scaption to ~30 degrees, 6x1 Pt often compensating by hiking shoulder (guarding mechanism), cues to relax. Standing pendulums exercises, side to side, clockwise and counterclockwise, 30 seconds x2 each. Cues/assist at hips to increase sway and bending at trunk to let arm hang/passively swing. Week 2 goals: passive flex 60-90 degrees, scaption 60-90 degrees, ER (0 degrees), IR (0-30 degrees), Abd (60-90 degrees) Education OT Patient Education: Correct positioning, Exercise program, Purpose of tx/functional activities, Reviewed precautions, Rehab process, Safety issues Teaching Recipient: Patient Teaching Methods: Demonstration, Discussion Response to Teaching: Verbalize Understanding, Return Demonstration, Reinforcement Needed OT Short Term Goals Short Term Goals Time Frame: November 10, 2021 Eatin Oral hygiene: 4 Toileting hygiene: 4 Shower/bathe self: 3 Upper body dressin Lower body dressin Putting on/taking off footwear: 3 OT Stress Engineer Goals Stress Engineer Goals Time Frame: Nov 24, 2021 Eating (QC): 5 Oral Hygiene (QC): 5 Toileting Hygiene (QC): 6 Shower/Bathe Self (QC): 4 Upper Body Dressing (QC): 4 Lower Body Dressing (QC): 5 On/Off Footwear (QC): 5 1=Demonstrate adherence to instructed precautions during ADL tasks. 2=Patient will verbalize/demonstrate understanding of assistive devices/modifications for ADL. 3=Patient will improve strength/tolerance for activity to enable patient to perform ADL's. OT Education/Plan Problem List/Assessment Assessment: Decreased Activ Tolerance, Decreased UE Strength, Impaired Coordination, Impaired Funct Balance, Impaired I ADL's, Impaired Self-Care Skills, Restricted Funct UE ROM Discharge Recommendations Plan/Recommendations: Continue POC Treatment Plan/Plan of Care Treatment,Training & Education: Yes Patient would benefit from OT for education, treatment and training to promote independence in ADL's, mobility, safety and/or upper extremity function for ADL's. Plan of Care: ADL Retraining, Cognitive Retraining, Functional Mobility, Group Exercise/Act as Ind, UE Funct Exercise/Act Treatment Duration: Nov 24, 2021 Frequency: At least 5 of 7 days/Wk (IRF) Estimated Hrs Per Day: 1.5 hours per day (75-90 min/day) Rehab Potential: Good Time/GCodes Start Time: 11:30 Stop Time: 12:00 Total Time Billed (hr/min): 30 Billed Treatment Time 1 visit EX (15 min) MAN (15 min) Teressa Ventura OT November 01, 2021 12:02
[2021-11-01 19:13] VITALS: BP 146/54
[2021-11-01] MEDS: MICONAZOLE 2% POWDER (DESENEX AF) 90 GM TOP SCH (21:33)
[2021-11-01] MEDS: VITAMIN D3 25 MCG (1,000 UNITS) TABLET PO SCH (21:33)
[2021-11-01] MEDS: rOPINIRole 1 MG (REQUIP) TABLET PO SCH (21:33)
[2021-11-01] MEDS: FLUTICASONE NASAL SPRAY (FLONASE) 16 GM BTL NS SCH (21:33)
[2021-11-01] MEDS: FERROUS SULF 325 MG (IRON) TAB PO SCH (21:33)
[2021-11-02] MEDS ORDERED: RT-ALBUTEROL/IPRATROPIUM 3 ML (DUONEB) VIAL INH PRN (03:45)
[2021-11-02] MEDS: LEVOTHYROXINE 75 MCG (LEVOTHROID) TABLET PO SCH (05:17)
[2021-11-02] MEDS: HYDROcodone/APAP 7.5 MG/325 MG (LORTAB, LORCET PLUS) TABLET PO PRN ×4 (05:17→22:21)
--- NOTE | 2021-11-02 06:41 | PM&R Progress Note ---
Subjective HPI/CC On Admission Date Seen by Provider: November 02, 2021 Time Seen by Provider: 11:30 Subjective/Events-last exam 11/02/2021: Pt is doing really well Having no new concerns Checked meds and labs No falls Pain is improved 11/01/2021: Pt is doing really well Walking with a cane Bowels moved yesterday Has a headache at times Overall dramatic improvement 10/31/2021: Pt dramatically improved Hemoglobin 8.8 Lortab given for pain Creatinine was 1.18 10/30/2021: Pt dramatically improved Completely lucid and no concerns Hemoglobin kamari to an appropriate level after 1 unit given a few days ago Bowels are moving No pain reported 10/29/21: Pt doing well No major issues overnight Will Heplock the D5NS normal saline Checked labs today but they are pending No falls 10/28/2021: Pt is dramatically improved Hemoglobin was 6.7, receiving one unit of blood No midline will be available because of history of breast cancer on the left with lymph node removal. High risk for lymphadenitis and on the right is the humerus fracture. Having a bowel movement now Potassium supplement also Review of Systems General: Fatigue, Malaise Musculoskeletal: arm pain Neurological: Weakness Objective Exam Vital Signs Vital Signs Date Time Temp Pulse Resp B/P (MAP) Pulse Ox O2 Delivery O2 Flow Rate FiO2 11/02/21 20:08 36.9 62 20 128/60 (82) 96 Room Air Capillary Refill : General Appearance: WD/WN, Anxious, Chronically ill, Mild Distress HEENT: PERRL/EOMI, Normal ENT Inspection, Pharynx Normal Neck: Full Range of Motion, Normal Inspection, Non Tender, Supple, Carotid Bruit Respiratory: Chest Non Tender, Lungs Clear, Normal Breath Sounds, No Accessory Muscle Use, No Respiratory Distress Cardiovascular: Regular Rate, Rhythm, No Edema, No Gallop, No JVD, No Murmur, Normal Peripheral Pulses Gastrointestinal: Normal Bowel Sounds, No Organomegaly, No Pulsatile Mass, Non Tender, Soft Back: Normal Inspection, No CVA Tenderness, No Vertebral Tenderness Extremity: Normal Capillary Refill, Normal Inspection, Normal Range of Motion (Except right arm in sling), Non Tender, No Calf Tenderness, No Pedal Edema Neurologic/Psychiatric: Alert, Oriented x3, No Motor/Sensory Deficits, Normal Mood/Affect, distance education coordinator 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 FIM Transfers Therapy Code Descriptions/Definitions Functional [place] Measure: 0=Not Assessed/NA 4=Minimal Assistance 1=Total Assistance 5=Supervision or Setup 2=Maximal Assistance 6=Modified [place] 3=Moderate Assistance 7=Complete IndependenceSCALE: Activities may be completed with or without assistive devices. 2-Wtfhyrwpss-cnoqqzb completes the activity by him/herself with no assistance from a helper. 5-Set-up or Clean-up Assistance-helper sets up or cleans up; patient completes activity. [place] assists only prior to or following the activity. 4-Supervision or Touching Assistance-helper provides verbal cues and/or touching/steadying and/or contact guard assistance as patient completes activity. Assistance may be provided throughout the activity or intermittently. 3-Partial/Moderate Assistance-helper does LESS THAN HALF the effort. [place] lifts, holds or supports trunk or limbs, but provides less than half the effort. 2-Substantial/Maximal Assistance-helper does MORE THAN HALF the effort. [place] lifts or holds trunk or limbs and provides more than half the effort. 9-Moxkrzjkf-jqnggq does ALL the effort. Patient does none of the effort to complete the activity. Or, the assistance of 2 or more helpers is required for the patient to complete the activity. If activity was not attempted, code reason: 7-Patient Refused. 9-Not Applicable-not attempted and the patient did not perform the activity before the current illness, exacerbation or injury. 10-Not Attempted due to Environmental Limitations-(lack of equipment, weather restraints, etc.). 88-Not Attempted due to Medical Conditions or Safety Concerns. Roll Left to Right (QC): 3 Sit to Lying (QC): 3 Sit to Stand (QC): 4 Chair/Lcd-hd-Ywlqa Xfer(QC): 3 Car Transfer (QC): 3 Gait Training Does the Patient Walk?: Yes Distance: 96' Walk 10 feet (QC): 4 Walk 50 ft with 2 Turns(QC): 4 Walk 150 ft (QC): 4 Walking 10ft/uneven surface-QC: 88 Gait Persons Needed: 1 Gait Assistive Device: Cane Small Base Quad Wheelchair Training Does the Pt Use a Wheelchair?: No Wheel 50 ft with 2 turns (QC): 1 Wheel 150 ft (QC): 1 Stair Training 1 Step (curb) (QC): 88 4 Steps (QC): 88 12 Steps (QC): 88 Balance Picking up an Object (QC): 88 ADL-Treatment Eating (QC): 3 (per patient report) Oral Hygiene (QC): 3 Shower/Bathe Self (QC): 3 Upper Body Dressing (QC): 2 Lower Body Dressing (QC): 3 On/Off Footwear (QC): 4 (dependent to don compression stockings) Toileting Hygiene (QC): 3 Toilet Transfer (QC): 4 Assessment/Plan Assessment and Plan Assess & Plan/Chief Complaint Assessment: Right humerus fracture status post uncomplicated repair Slow recovery with physical debility 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 Chronic kidney disease Diabetes Current hypoglycemia will hold all diabetic meds Severe oversedation with baclofen Severe LENNY on BiPAP Poor appetite Osteoarthritis Anemia requiring 1 unit of transfusion on 10/28/2021 Plan: Gentle IV fluids of D5 NS Hold all diabetic meds Supportive care Use BiPAP 10/28/2021: Transfuse 1 unit today Supportive care Much improved status 10/29/21: Monitor sugar Fall risk 10/30/2021: Monitor sugar Supportive care 10/31/2021: Supportive care Monitor closely 11/01/2021: Continue aggressive rehab Supportive care 11/02/2021: Supportive care Discharge soon (1) Right humeral fracture Status: Acute (2) Debility, unspecified Status: Acute (3) Physical debility Status: Acute LINDSAY KRUSE DO November 02, 2021 06:41
[2021-11-02] MEDS: inSUlin ASPART (NovoLOG) 1 UNIT/0.01 ML (CHARGE PER UNIT) SC SCH ×4 (07:23→21:40)
[2021-11-02 07:44] VITALS: BP 139/64
[2021-11-02] MEDS: BUMETANIDE 1 MG (BUMEX) TAB PO SCH (07:53)
[2021-11-02] MEDS: GABAPENTIN 600 MG (NEURONTIN) TAB PO SCH ×3 (07:54→21:41)
[2021-11-02] MEDS: PANTOPRAZOLE 20 MG TABLET (PROTONIX) PO SCH ×2 (07:54→21:41)
[2021-11-02] MEDS: LORATADINE (CLARITIN) 10 MG TAB PO SCH (07:54)
[2021-11-02] MEDS: SENNA W/DOCUSATE (SENOKOT S) TABLET PO SCH ×2 (07:54→21:41)
[2021-11-02] MEDS: meTOprolol TARTRATE 50 MG (LOPRESSOR) TAB PO SCH ×2 (07:54→21:41)
[2021-11-02] MEDS: CYANOCOBALAMIN 1,000 MCG (VITAMIN B-12) TABLET PO SCH (07:54)
[2021-11-02] MEDS: polyethylene glycoL POWDER 17 GM (MIRALAX) PACK PO SCH ×2 (07:54→21:41)
[2021-11-02] MEDS: KCL 10 MEQ TAB (MICRO K) PO SCH (07:54)
[2021-11-02] MEDS: DOCUSATE SODIUM 100 MG (COLACE) CAP PO SCH ×2 (07:54→21:40)
[2021-11-02] MEDS: MICONAZOLE 2% POWDER (DESENEX AF) 90 GM TOP SCH ×2 (07:58→14:30)
[2021-11-02] MEDS ORDERED: RT-ALBUTEROL/IPRATROPIUM 3 ML (DUONEB) VIAL INH SCH (08:00)
--- NOTE | 2021-11-02 09:41 | Occupational Ther Daily Note ---
OT Current Status-Daily Note Subjective Pt reports pain in shoulder while laying down. Reminders on positioning in bed (including pillow or rolled towels) to prevent any extension. Appearance Pt left sitting in recliner, all needs within reach Mental Status/Objective Patient Orientation: Person, Place, Situation Attachments: Other-See Comments (GEETA sling ) ADL-Treatment Therapy Code Descriptions/Definitions Functional [place] Measure: 0=Not Assessed/NA 4=Minimal Assistance 1=Total Assistance 5=Supervision or Setup 2=Maximal Assistance 6=Modified [place] 3=Moderate Assistance 7=Complete IndependenceSCALE: Activities may be completed with or without assistive devices. 3-Whmwspemig-bhckoif completes the activity by him/herself with no assistance from a helper. 5-Set-up or Clean-up Assistance-helper sets up or cleans up; patient completes activity. [place] assists only prior to or following the activity. 4-Supervision or Touching Assistance-helper provides verbal cues and/or touching/steadying and/or contact guard assistance as patient completes activity. Assistance may be provided throughout the activity or intermittently. 3-Partial/Moderate Assistance-helper does LESS THAN HALF the effort. [place] lifts, holds or supports trunk or limbs, but provides less than half the effort. 2-Substantial/Maximal Assistance-helper does MORE THAN HALF the effort. [place] lifts or holds trunk or limbs and provides more than half the effort. 7-Jdlbkcmlf-btnygy does ALL the effort. Patient does none of the effort to complete the activity. Or, the assistance of 2 or more helpers is required for the patient to complete the activity. If activity was not attempted, code reason: 7-Patient Refused. 9-Not Applicable-not attempted and the patient did not perform the activity before the current illness, exacerbation or injury. 10-Not Attempted due to Environmental Limitations-(lack of equipment, weather restraints, etc.). 88-Not Attempted due to Medical Conditions or Safety Concerns. Shower/Bathe Self (QC): 3 Upper Body Dressing (QC): 3 Lower Body Dressing (QC): 3 On/Off Footwear: 4 Partial Sponge bath performed seated in chair. Post reminder on compensatory method, pt able to wash LUE/axilla without assist. Min a to slightly abduct RUE in order for patient to wash axilla. Improved shoulder abduction notable; ~40 degrees. Slight improvement in Red rash under L breast. Pt did not wash LE's but did apply lotion to bilateral legs/feet without assist. With steadying assist, She stood to wash marco area. She was able to thread BLE's into underwear. Minimal assist needed to pull up over R hip due to difficulty reaching with LUE. Reminders on shukri technique when donning dress. Post instruction, pt still required mod a to don dress as she required assist to thread RUE, and bring over head. Pt able to stand and pull down below torso with supervision. Mod a needed to don/doff RUE sling; cues/assist for correct positioning. Dependent to don compression stockings, pt able to don bilateral socks with extra time. Other Treatment Exercises included: Isometric at neutral: abductors, external/internal rotation, triceps and biceps, 8x1 each. AROM elbow/wrist/hand: 8x1 PROM external rotation to neutral (0 degrees), 6x1 PROM shoulder abduction-Improved to ~40 degrees, 6x1 Supine PROM shoulder flexion to ~45 degrees, 6x1 Less compensation at shoulder this date, but still needing cues to reduce hiking. Week 2 goals: passive flex 60-90 degrees, scaption 60-90 degrees, ER (0 degrees), IR (0-30 degrees), Abd (60-90 degrees) Education OT Patient Education: Correct positioning, Energy conservation, Exercise program, Modified ADL techniques, Progress toward Goal/Update tx plan, Purpose of tx/functional activities, Reviewed precautions, Safety issues, Transfer techniques Teaching Recipient: Patient Teaching Methods: Demonstration, Discussion Response to Teaching: Verbalize Understanding, Return Demonstration, Reinforcement Needed OT Short Term Goals Short Term Goals Time Frame: November 10, 2021 Eatin Oral hygiene: 4 Toileting hygiene: 4 Shower/bathe self: 3 Upper body dressin Lower body dressin Putting on/taking off footwear: 3 OT Bad Work Gatherer Goals Bad Work Gatherer Goals Time Frame: Nov 24, 2021 Eating (QC): 5 Oral Hygiene (QC): 5 Toileting Hygiene (QC): 6 Shower/Bathe Self (QC): 4 Upper Body Dressing (QC): 4 Lower Body Dressing (QC): 5 On/Off Footwear (QC): 5 1=Demonstrate adherence to instructed precautions during ADL tasks. 2=Patient will verbalize/demonstrate understanding of assistive devices/modifications for ADL. 3=Patient will improve strength/tolerance for activity to enable patient to perform ADL's. OT Education/Plan Problem List/Assessment Assessment: Decreased Activ Tolerance, Decreased UE Strength, Impaired Coordination, Impaired I ADL's, Impaired Self-Care Skills, Restricted Funct UE ROM Discharge Recommendations Plan/Recommendations: Continue POC Treatment Plan/Plan of Care Treatment,Training & Education: Yes Patient would benefit from OT for education, treatment and training to promote i ndependence in ADL's, mobility, safety and/or upper extremity function for ADL's. Plan of Care: ADL Retraining, Cognitive Retraining, Functional Mobility, Group Exercise/Act as Ind, UE Funct Exercise/Act Treatment Duration: Nov 24, 2021 Frequency: At least 5 of 7 days/Wk (IRF) Estimated Hrs Per Day: 1.5 hours per day (75-90 min/day) Rehab Potential: Good Time/GCodes Start Time: 08:30 Stop Time: 09:35 Total Time Billed (hr/min): 65 Billed Treatment Time 1 visit ADL x2 (30 min) EX (20 min) MAN (15 min) Teressa Ventura OT November 02, 2021 09:41
[2021-11-02] MEDS: ENOXAPARIN 40 MG/0.4 ML (LOVENOX) SYR SC SCH (10:56)
--- NOTE | 2021-11-02 11:05 | Physical Therapy Daily Note ---
PT Daily Note-Current Subjective Pt. agrees to Rx and states she is so happy to report that she is better and is having little to no pain in her right shoulder Pain Location: No Pain Reported Mental Status Patient Orientation: Normal For Age Attachments: Other-See Comments (sling R) Transfers SCALE: Activities may be completed with or without assistive devices. 3-Hkheivvjbi-nqexffs completes the activity by him/herself with no assistance from a helper. 5-Set-up or Clean-up Assistance-helper sets up or cleans up; patient completes activity. [place] assists only prior to or following the activity. 4-Supervision or Touching Assistance-helper provides verbal cues and/or touching/steadying and/or contact guard assistance as patient completes activity. Assistance may be provided throughout the activity or intermittently. 3-Partial/Moderate Assistance-helper does LESS THAN HALF the effort. [place] lifts, holds or supports trunk or limbs, but provides less than half the effort. 2-Substantial/Maximal Assistance-helper does MORE THAN HALF the effort. [place] lifts or holds trunk or limbs and provides more than half the effort. 3-Dgzdbefxv-ywlgpa does ALL the effort. Patient does none of the effort to complete the activity. Or, the assistance of 2 or more helpers is required for the patient to complete the activity. If activity was not attempted, code reason: 7-Patient Refused. 9-Not Applicable-not attempted and the patient did not perform the activity before the current illness, exacerbation or injury. 10-Not Attempted due to Environmental Limitations-(lack of equipment, weather restraints, etc.). 88-Not Attempted due to Medical Conditions or Safety Concerns. Sit to Stand (QC): 6 Chair/Ofk-tl-Njjyt Xfer(QC): 6 Toilet Transfer (QC): 6 Weight Bearing NWB right shoulder, sling on Gait Training Does the Patient Walk?: Yes Walk 10 feet (QC): 4 Walk 50 ft with 2 Turns(QC): 4 Walk 150 ft (QC): 4 Gait Persons Needed: 1 Gait Assistive Device: Cane Large Base Quad slow gait, good pattern no LOB, waked on carpet and tile this date, 160 ft. 100ft 75 ft x 2 Exercises Seated Therapy Exercises: Ankle pumps, Sit to stand, Long arc quads, Hip flexion, Hip abd/add Seated Reps: 12 NuStep Minutes: 8 NuStep Workload: 2 Treatments TRFs, gait and ex as above Assessment Current Status: Good Progress PT Short Term Goals Short Term Goals Time Frame: November 03, 2021 Roll Left & Right: 4 Sit to lyin (Sara) Lying to sitting on side of be: 3 (Sara) Sit to stand: 4 (CGA) Chair/bcz-yd-uxxdi transfer: 4 (CGA) Walk 10 feet: 4 (CGA) Walk 50 feet with two turns: 4 (CGA) PT Pediatric Physician Assistant Goals Pediatric Physician Assistant Goals PT Assisted Goals Time Frame: Nov 17, 2021 Roll Left & Right (QC): 6 Sit to Lying (QC): 4 (CGA) Lying-Sitting on Side/Bed(QC): 4 (CGA) Sit to Stand (QC): 4 (SBA) Chair/Fdj-uk-Rfdtc Xfer(QC): 4 (SBA) Toilet Transfer (QC): 4 (SBA) Car Transfer (QC): 4 (SBA) Does the Patient Walk: Yes Walk 10 feet (QC): 4 (SBA) Walk 50ft with 2 Turns (QC): 4 (SBA) Walk 150 ft (QC): 4 (SBA) Walking 10ft on Uneven Surface: 4 (SBA) 1 Step (curb) (QC): 4 (CGA) 4 Steps (QC): 88 12 Steps (QC): 88 Picking up an Object (QC): 4 (SA with talent development director) Wheel 50 feet with 2 turns (QC: 9 Wheel 150 feet: 9 PT Plan Treatment/Plan Treatment Plan: Continue Plan of Care Treatment Plan: Bed Mobility, Education, Functional Activity [place], Functional Strength, Group Therapy, Gait, Safety, Therapeutic Exercise, Transfers Treatment Duration: Nov 17, 2021 Frequency: At least 5 of 7 days/Wk (IRF) Estimated Hrs Per Day: 1.5 hours per day Patient and/or Family Agrees t: Yes Safety Risks/Education Patient Education: Gait Training, Transfer Techniques, Correct Positioning, Disease Process, Safety Issues Teaching Recipient: Patient Teaching Methods: Demonstration, Discussion Response to Teaching: Verbalize Understanding, Return Demonstration, Reinforcement Needed Time/GCodes Time In: 1000 Time Out: 1100 Total Billed Treatment Time: 60 Total Billed Treatment 1,GT25m,FA15m,EX20m BARRY TABOR FOOD EXPEDITOR November 02, 2021 11:05
--- NOTE | 2021-11-02 14:28 | Therapy Group Daily Note ---
Therapy Daily Group Note Patient Education Topic Home Safety, Exercises Exercises LE Seated Exercise, UE Exercise Session Ratio (pt:therapist): 4:1 Goal of Session: Education on ARU Expectations, Home Safety Strategies, UE/LE Strengthing, Use of Adaptive Equipment Goal Met for this Session: Yes Pt Benefit of Group: Contributions to Others, F/U Use of Strategies @Home, Increased Functional Safety, Socialization Other/Notes Pt. participated in group session this date. Pt. ambulated to from group with QC, wearing mask with CGA to SBA. Pts introduced themselves sharing if they so desired their home town and favorite summertime activity. Pts were educated in ARU expectations and practices. Education also included Assistive device education mostly regarding front wheeled walkers, use and safety. Home safety was a topic and most pts shared their input and challenges . Seated U&L ext exercises were done , Pt. to room with needs met and sánchez at hand Start Time: 13:00 Stop Time: 14:10 Total Billed Treatment Time: 70 Total Billed Treatment 1,GRP BARRY TABOR DRAMATIC ART TEACHER November 02, 2021 14:28
[2021-11-02 20:08] VITALS: BP 128/60
[2021-11-02] MEDS: FERROUS SULF 325 MG (IRON) TAB PO SCH (21:40)
[2021-11-02] MEDS: FLUTICASONE NASAL SPRAY (FLONASE) 16 GM BTL NS SCH (21:40)
[2021-11-02] MEDS: rOPINIRole 1 MG (REQUIP) TABLET PO SCH (21:41)
[2021-11-02] MEDS: VITAMIN D3 25 MCG (1,000 UNITS) TABLET PO SCH (21:41)
[2021-11-03] MEDS: inSUlin ASPART (NovoLOG) 1 UNIT/0.01 ML (CHARGE PER UNIT) SC SCH ×4 (06:40→21:22)
[2021-11-03] MEDS: LEVOTHYROXINE 75 MCG (LEVOTHROID) TABLET PO SCH (06:40)
[2021-11-03] MEDS: HYDROcodone/APAP 7.5 MG/325 MG (LORTAB, LORCET PLUS) TABLET PO PRN ×4 (06:41→23:00)
--- NOTE | 2021-11-03 06:50 | PM&R Progress Note ---
Subjective HPI/CC On Admission Date Seen by Provider: November 03, 2021 Time Seen by Provider: 10:00 Subjective/Events-last exam 11/03/21: Pt is doing well Metoprolol will be held due to mild hypotension Pain is doing really well Sunday discharge since that is her birthday 11/02/2021: Pt is doing really well Having no new concerns Checked meds and labs No falls Pain is improved 11/01/2021: Pt is doing really well Walking with a cane Bowels moved yesterday Has a headache at times Overall dramatic improvement 10/31/2021: Pt dramatically improved Hemoglobin 8.8 Lortab given for pain Creatinine was 1.18 10/30/2021: Pt dramatically improved Completely lucid and no concerns Hemoglobin kamari to an appropriate level after 1 unit given a few days ago Bowels are moving No pain reported 10/29/21: Pt doing well No major issues overnight Will Heplock the D5NS normal saline Checked labs today but they are pending No falls 10/28/2021: Pt is dramatically improved Hemoglobin was 6.7, receiving one unit of blood No midline will be available because of history of breast cancer on the left with lymph node removal. High risk for lymphadenitis and on the right is the humerus fracture. Having a bowel movement now Potassium supplement also Review of Systems General: Fatigue, Malaise Musculoskeletal: arm pain Objective Exam Vital Signs Vital Signs Date Time Temp Pulse Resp B/P (MAP) Pulse Ox O2 Delivery O2 Flow Rate FiO2 11/03/21 22:45 64 126/59 (81) 11/03/21 21:30 Room Air 11/03/21 20:00 36.3 18 97 Capillary Refill : General Appearance: WD/WN, Anxious, Chronically ill, Mild Distress HEENT: PERRL/EOMI, Normal ENT Inspection, Pharynx Normal Neck: Full Range of Motion, Normal Inspection, Non Tender, Supple, Carotid Bruit Respiratory: Chest Non Tender, Lungs Clear, Normal Breath Sounds, No Accessory Muscle Use, No Respiratory Distress Cardiovascular: Regular Rate, Rhythm, No Edema, No Gallop, No JVD, No Murmur, Normal Peripheral Pulses Gastrointestinal: Normal Bowel Sounds, No Organomegaly, No Pulsatile Mass, Non Tender, Soft Back: Normal Inspection, No CVA Tenderness, No Vertebral Tenderness Extremity: Normal Capillary Refill, Normal Inspection, Normal Range of Motion (Except right arm in sling), Non Tender, No Calf Tenderness, No Pedal Edema Neurologic/Psychiatric: Alert, Oriented x3, No Motor/Sensory Deficits, Normal Mood/Affect, trap setter 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 FIM Transfers Therapy Code Descriptions/Definitions Functional [place] Measure: 0=Not Assessed/NA 4=Minimal Assistance 1=Total Assistance 5=Supervision or Setup 2=Maximal Assistance 6=Modified [place] 3=Moderate Assistance 7=Complete IndependenceSCALE: Activities may be completed with or without assistive devices. 2-Shafgexpia-slrvqmi completes the activity by him/herself with no assistance from a helper. 5-Set-up or Clean-up Assistance-helper sets up or cleans up; patient completes activity. [place] assists only prior to or following the activity. 4-Supervision or Touching Assistance-helper provides verbal cues and/or touching/steadying and/or contact guard assistance as patient completes activity. Assistance may be provided throughout the activity or intermittently. 3-Partial/Moderate Assistance-helper does LESS THAN HALF the effort. [place] lifts, holds or supports trunk or limbs, but provides less than half the effort. 2-Substantial/Maximal Assistance-helper does MORE THAN HALF the effort. [place] lifts or holds trunk or limbs and provides more than half the effort. 6-Pnsxvqzam-tbirnp does ALL the effort. Patient does none of the effort to complete the activity. Or, the assistance of 2 or more helpers is required for the patient to complete the activity. If activity was not attempted, code reason: 7-Patient Refused. 9-Not Applicable-not attempted and the patient did not perform the activity before the current illness, exacerbation or injury. 10-Not Attempted due to Environmental Limitations-(lack of equipment, weather restraints, etc.). 88-Not Attempted due to Medical Conditions or Safety Concerns. Roll Left to Right (QC): 3 Sit to Lying (QC): 3 Sit to Stand (QC): 6 Chair/Rwc-ly-Qaqhd Xfer(QC): 6 Car Transfer (QC): 3 Gait Training Does the Patient Walk?: Yes Distance: 96' Walk 10 feet (QC): 4 Walk 50 ft with 2 Turns(QC): 4 Walk 150 ft (QC): 4 Walking 10ft/uneven surface-QC: 88 Gait Persons Needed: 1 Gait Assistive Device: Cane Large Base Quad Wheelchair Training Does the Pt Use a Wheelchair?: No Wheel 50 ft with 2 turns (QC): 1 Wheel 150 ft (QC): 1 Stair Training 1 Step (curb) (QC): 88 4 Steps (QC): 88 12 Steps (QC): 88 Balance Picking up an Object (QC): 88 ADL-Treatment Eating (QC): 3 (per patient report) Oral Hygiene (QC): 3 Shower/Bathe Self (QC): 3 Upper Body Dressing (QC): 3 Lower Body Dressing (QC): 3 On/Off Footwear (QC): 4 Toileting Hygiene (QC): 3 Toilet Transfer (QC): 4 Assessment/Plan Assessment and Plan Assess & Plan/Chief Complaint Assessment: Right humerus fracture status post uncomplicated repair Slow recovery with physical debility 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 Chronic kidney disease Diabetes Current hypoglycemia will hold all diabetic meds Severe oversedation with baclofen Severe LENNY on BiPAP Poor appetite Osteoarthritis Anemia requiring 1 unit of transfusion on 10/28/2021 Plan: Gentle IV fluids of D5 NS Hold all diabetic meds Supportive care Use BiPAP 10/28/2021: Transfuse 1 unit today Supportive care Much improved status 10/29/21: Monitor sugar Fall risk 10/30/2021: Monitor sugar Supportive care 10/31/2021: Supportive care Monitor closely 11/01/2021: Continue aggressive rehab Supportive care 11/02/2021: Supportive care Discharge soon 11/03/2021: Dramatic improvement Discharge soon (1) Right humeral fracture Status: Acute (2) Debility, unspecified Status: Acute (3) Physical debility Status: Acute LINDSAY KRUSE DO November 03, 2021 06:50
[2021-11-03 07:27] VITALS: BP 93/62
[2021-11-03] MEDS: CYANOCOBALAMIN 1,000 MCG (VITAMIN B-12) TABLET PO SCH (08:16)
[2021-11-03] MEDS: LORATADINE (CLARITIN) 10 MG TAB PO SCH (08:16)
[2021-11-03] MEDS: BUMETANIDE 1 MG (BUMEX) TAB PO SCH (08:16)
[2021-11-03] MEDS: GABAPENTIN 600 MG (NEURONTIN) TAB PO SCH ×3 (08:16→21:21)
[2021-11-03] MEDS: KCL 10 MEQ TAB (MICRO K) PO SCH (08:16)
[2021-11-03] MEDS: MICONAZOLE 2% POWDER (DESENEX AF) 90 GM TOP SCH ×2 (08:17→21:23)
[2021-11-03] MEDS: PANTOPRAZOLE 20 MG TABLET (PROTONIX) PO SCH ×2 (08:19→21:22)
[2021-11-03] MEDS: DOCUSATE SODIUM 100 MG (COLACE) CAP PO SCH ×2 (08:56→21:40)
[2021-11-03] MEDS: polyethylene glycoL POWDER 17 GM (MIRALAX) PACK PO SCH ×2 (08:56→21:40)
[2021-11-03] MEDS: SENNA W/DOCUSATE (SENOKOT S) TABLET PO SCH ×2 (08:57→21:00)
--- NOTE | 2021-11-03 09:21 | Occupational Ther Daily Note ---
OT Current Status-Daily Note Subjective Pt reports sleeping better last night. She states she had nursing assist with pillow placement for shoulder and making sure she took her pain meds prior to bed. Appearance Pt returned to sitting in chair, all needs within reach. Mental Status/Objective Patient Orientation: Person, Place, Situation Attachments: Other-See Comments (GEETA nichols) ADL-Treatment Therapy Code Descriptions/Definitions Functional [place] Measure: 0=Not Assessed/NA 4=Minimal Assistance 1=Total Assistance 5=Supervision or Setup 2=Maximal Assistance 6=Modified [place] 3=Moderate Assistance 7=Complete IndependenceSCALE: Activities may be completed with or without assistive devices. 1-Thwliimbte-nmtqwth completes the activity by him/herself with no assistance from a helper. 5-Set-up or Clean-up Assistance-helper sets up or cleans up; patient completes activity. [place] assists only prior to or following the activity. 4-Supervision or Touching Assistance-helper provides verbal cues and/or touching/steadying and/or contact guard assistance as patient completes activity. Assistance may be provided throughout the activity or intermittently. 3-Partial/Moderate Assistance-helper does LESS THAN HALF the effort. [place] lifts, holds or supports trunk or limbs, but provides less than half the effort. 2-Substantial/Maximal Assistance-helper does MORE THAN HALF the effort. [place] lifts or holds trunk or limbs and provides more than half the effort. 0-Nwgislzql-amrpeo does ALL the effort. Patient does none of the effort to comp lete the activity. Or, the assistance of 2 or more helpers is required for the patient to complete the activity. If activity was not attempted, code reason: 7-Patient Refused. 9-Not Applicable-not attempted and the patient did not perform the activity before the current illness, exacerbation or injury. 10-Not Attempted due to Environmental Limitations-(lack of equipment, weather restraints, etc.). 88-Not Attempted due to Medical Conditions or Safety Concerns. Eating (QC): 5 Shower/Bathe Self (QC): 3 Upper Body Dressing (QC): 3 Lower Body Dressing (QC): 4 On/Off Footwear: 5 Toileting Hygiene (QC): 4 Toilet Transfer (QC): 6 Sponge bath performed partially in sitting and standing. No Lob or safety concerns observed while standing. Pt able to recall compensatory method to wash LUE/axilla this date, no assist. She was able to reach all body parts, assist on ly to passively abduct RUE in order for patient to wash axilla. Rash under L breast continues to improve. While seated, She threaded BLE's into underwear. With cues, pt was able to hold pants with RUE (keeping elbow in front of body) as LUE reached behind to pull up in back. Extra time to sheeting puller R hip but no physical assistance needed today. When donning dress, pt was able to thread feet into dress first, stand to pull up over hips, and thread LUE. Minimal assist to thread RUE and assist to zip up in the back. Min A needed to don/doff RUE sling; cues/assist for correct positioning. Dependent to don compression stockings, pt able to don bilateral socks with set up. Other Treatment 2nd session: ([id number]) Exercises included: Isometric at neutral: abductors, external/internal rotation, triceps and biceps, 6x1 each. AROM elbow/wrist/hand: 8x1 PROM external rotation to neutral (0 degrees), 8x1 Supine PROM shoulder abduction-Improved to ~60 degrees, 8x1 Supine PROM shoulder flexion to ~65 degrees, 8x1 Supine PROM scaption to ~70 degrees, 8x1 Less compensation at shoulder this date, but still needing cues to reduce hiking. Week 2 goals: passive flex 60-90 degrees, scaption 60-90 degrees, ER (0 degrees), IR (0-30 degrees), Abd (60-90 degrees) Education OT Patient Education: Correct positioning, Exercise program, Modified ADL t echniques, Purpose of tx/functional activities, Reviewed precautions, Safety issues Teaching Recipient: Patient Teaching Methods: Discussion Response to Teaching: Verbalize Understanding, Return Demonstration OT Short Term Goals Short Term Goals Time Frame: November 10, 2021 Eatin Oral hygiene: 4 Toileting hygiene: 4 Shower/bathe self: 3 Upper body dressin Lower body dressin Putting on/taking off footwear: 3 OT Spray Pilot Goals Skilled Nursing Goals Time Frame: Nov 24, 2021 Eating (QC): 5 Oral Hygiene (QC): 5 Toileting Hygiene (QC): 6 Shower/Bathe Self (QC): 4 Upper Body Dressing (QC): 4 Lower Body Dressing (QC): 5 On/Off Footwear (QC): 5 1=Demonstrate adherence to instructed precautions during ADL tasks. 2=Patient will verbalize/demonstrate understanding of assistive devices/modifications for ADL. 3=Patient will improve strength/tolerance for activity to enable patient to perform ADL's. OT Education/Plan Problem List/Assessment Assessment: Decreased Activ Tolerance, Decreased UE Strength, Impaired Coordination, Impaired I ADL's, Impaired Self-Care Skills, Restricted Funct UE ROM Discharge Recommendations Plan/Recommendations: Continue POC Treatment Plan/Plan of Care Treatment,Training & Education: Yes Patient would benefit from OT for education, treatment and training to promote independence in ADL's, mobility, safety and/or upper extremity function for ADL's. Plan of Care: ADL Retraining, Cognitive Retraining, Functional Mobility, Group Exercise/Act as Ind, UE Funct Exercise/Act Treatment Duration: Nov 24, 2021 Frequency: At least 5 of 7 days/Wk (IRF) Estimated Hrs Per Day: 1.5 hours per day (75-90 min/day) Rehab Potential: Good Time/GCodes Start Time: 08:15 (1135) Stop Time: 09:15 (1205) Total Time Billed (hr/min): 90 Billed Treatment Time 1 visit ADL x4 2nd visit EX (15 min) MAN (15 min) Teressa Ventura OT November 03, 2021 09:21
--- NOTE | 2021-11-03 11:06 | Physical Therapy Daily Note ---
PT Daily Note-Current Subjective Pt. agrees to Rx, explains that to her understanding she is scheduled to go home on Sunday but her birthday is Sunday and she would really like to go home then if possible. This was forwarded to the nurse. Pt. feels she has made good progress and has min to no pain c/o today Pain Location: No Pain Reported Mental Status Patient Orientation: Normal For Age Attachments: Other-See Comments (sling R arm) Transfers SCALE: Activities may be completed with or without assistive devices. 9-Tnohhoufmd-dcelfcz completes the activity by him/herself with no assistance from a helper. 5-Set-up or Clean-up Assistance-helper sets up or cleans up; patient completes activity. [place] assists only prior to or following the activity. 4-Supervision or Touching Assistance-helper provides verbal cues and/or touching/steadying and/or contact guard assistance as patient completes activity. Assistance may be provided throughout the activity or intermittently. 3-Partial/Moderate Assistance-helper does LESS THAN HALF the effort. [place] lifts, holds or supports trunk or limbs, but provides less than half the effort. 2-Substantial/Maximal Assistance-helper does MORE THAN HALF the effort. [place] lifts or holds trunk or limbs and provides more than half the effort. 6-Xouzkpvct-xelrvr does ALL the effort. Patient does none of the effort to complete the activity. Or, the assistance of 2 or more helpers is required for the patient to complete the activity. If activity was not attempted, code reason: 7-Patient Refused. 9-Not Applicable-not attempted and the patient did not perform the activity before the current illness, exacerbation or injury. 10-Not Attempted due to Environmental Limitations-(lack of equipment, weather restraints, etc.). 88-Not Attempted due to Medical Conditions or Safety Concerns. Roll Left & Right (QC): 4 Sit to Lying (QC): 6 Lying to Sitting/Side of Bed(Q: 4 Sit to Stand (QC): 6 Chair/Van-lr-Nrckf Xfer(QC): 6 Toilet Transfer (QC): 6 Weight Bearing NWB right shoulder, sling on Gait Training Does the Patient Walk?: Yes Walk 10 feet (QC): 4 Walk 50 ft with 2 Turns(QC): 4 Walk 150 ft (QC): 4 Gait Persons Needed: 1 Gait Assistive Device: Cane Large Base Quad slow, small careful steps, no starr LOB, Exercises Supine Ex: Ankle pumps (HC stretches), Quad Set, Glut sets, Heel Slides, Short Arc Quads, Scooting, Straight leg raise, Hip abd/add Supine Reps: 15 Treatments toileted SBA Assessment Current Status: Good Progress PT Short Term Goals Short Term Goals Time Frame: November 03, 2021 Roll Left & Right: 4 Sit to lyin (Sara) Lying to sitting on side of be: 3 (Sara) Sit to stand: 4 (CGA) Chair/qbi-oj-welgm transfer: 4 (CGA) Walk 10 feet: 4 (CGA) Walk 50 feet with two turns: 4 (CGA) PT [facility] Goals Printer Helper Goals PT [facility] Goals Time Frame: Nov 17, 2021 Roll Left & Right (QC): 6 Sit to Lying (QC): 4 (CGA) Lying-Sitting on Side/Bed(QC): 4 (CGA) Sit to Stand (QC): 4 (SBA) Chair/Spq-pp-Blofh Xfer(QC): 4 (SBA) Toilet Transfer (QC): 4 (SBA) Car Transfer (QC): 4 (SBA) Does the Patient Walk: Yes Walk 10 feet (QC): 4 (SBA) Walk 50ft with 2 Turns (QC): 4 (SBA) Walk 150 ft (QC): 4 (SBA) Walking 10ft on Uneven Surface: 4 (SBA) 1 Step (curb) (QC): 4 (CGA) 4 Steps (QC): 88 12 Steps (QC): 88 Picking up an Object (QC): 4 (SA with ekg tech) Wheel 50 feet with 2 turns (QC: 9 Wheel 150 feet: 9 PT Plan Treatment/Plan Treatment Plan: Continue Plan of Care Treatment Plan: Bed Mobility, Education, Functional Activity Kobe, Functional Strength, Group Therapy, Gait, Safety, Therapeutic Exercise, Transfers Treatment Duration: Nov 17, 2021 Frequency: At least 5 of 7 days/Wk (IRF) Estimated Hrs Per Day: 1.5 hours per day Patient and/or Family Agrees t: Yes Safety Risks/Education Patient Education: Gait Training, Transfer Techniques, Correct Positioning, Dis ease Process, Safety Issues Teaching Recipient: Patient Teaching Methods: Demonstration, Discussion Response to Teaching: Verbalize Understanding, Return Demonstration, Reinforcement Needed Time/GCodes Time In: 1000 Time Out: 1100 Total Billed Treatment Time: 60 Total Billed Treatment 1,GT30m,EX30m BARRY TABOR PEANUT FARMER November 03, 2021 11:06
[2021-11-03] MEDS: ENOXAPARIN 40 MG/0.4 ML (LOVENOX) SYR SC SCH (12:15)
--- NOTE | 2021-11-03 12:44 | Progress Note ---
MIRYAM ARGUELLO 11/03/21 1244: Progress Note The patient is a 75 YO female who was admitted to inpatient rehab for debility secondary to a right humerus fracture repair. The patient presented was admitted to inpatient rehab on 10/27/21, from [facility] after an uncomplicated right humerus fracture repair. At presentation she had a creatinine of 1.6, and was hypoglycemic. Her creatinine was monitored closely throughout her stay, and her DM medication was held until her blood sugar normalized. Additionally she received D5NS IV fluid for supportive care for her hypoglycemia. Throughout her stay she fully participated in her physical therapy, occupational therapy and speech therapy. The patient focused on bed mobility, functional activity tolerance, functional strength, gait, safety, ADLs, and transfers. She showed great improvement in her strength, endurance, and stamina throughout her rehab course. Her medical status was closely monitored throughout her stay. She had a hemoglobin of 6.7 on 10/28/21, and subsequently received 1 unit of blood. Following the blood transfusion her hemoglobin increased and stabilized. The patient will be discharged home on 11/05/21. She feels comfortable with this plan and is content with her progress she made throughout her rehab course. JULIANE KRUSE DO 11/04/21 0533: Supervisory-Addendum Brief Verification & Attestation Participated in pt care: history, MDM, physical Personally performed: exam, history, MDM, supervision of care Care discussed with: Medical Student Procedures: n/a Results interpretation: Verified all documentation Verification and Attestation of Medical Student E/M Service A medical student performed and documented this service in my presence. I reviewed and verified all information documented by the medical student and made modifications to such information, when appropriate. I personally performed the physical exam and medical decision making. Juliane Kruse November 04, 2021,05:33 MIRYAM ARGUELLO November 03, 2021 12:44 JULIANE KRUSE DO November 04, 2021 05:33
[2021-11-03 13:20] VITALS: BP 152/67
[2021-11-03] MEDS: meTOprolol TARTRATE 50 MG (LOPRESSOR) TAB PO SCH ×2 (13:27→21:00)
--- NOTE | 2021-11-03 14:03 | Physical Therapy Daily Note ---
PT Daily Note-Current Subjective Pt. agrees to Rx. After some discussion on pts functional mobility and indep level for home it was decided she should work on in out bed from left side of bed simulating her situation at home. Pain Location: No Pain Reported Mental Status Patient Orientation: Normal For Age Attachments: Other-See Comments (sling) Transfers SCALE: Activities may be completed with or without assistive devices. 6-Nhwnrsorvc-yogqwwy completes the activity by him/herself with no assistance from a helper. 5-Set-up or Clean-up Assistance-helper sets up or cleans up; patient completes activity. [place] assists only prior to or following the activity. 4-Supervision or Touching Assistance-helper provides verbal cues and/or touching/steadying and/or contact guard assistance as patient completes activity. Assistance may be provided throughout the activity or intermittently. 3-Partial/Moderate Assistance-helper does LESS THAN HALF the effort. [place] li fts, holds or supports trunk or limbs, but provides less than half the effort. 2-Substantial/Maximal Assistance-helper does MORE THAN HALF the effort. [place] lifts or holds trunk or limbs and provides more than half the effort. 7-Qxyzevfzg-subyuv does ALL the effort. Patient does none of the effort to complete the activity. Or, the assistance of 2 or more helpers is required for the patient to complete the activity. If activity was not attempted, code reason: 7-Patient Refused. 9-Not Applicable-not attempted and the patient did not perform the activity before the current illness, exacerbation or injury. 10-Not Attempted due to Environmental Limitations-(lack of equipment, weather restraints, etc.). 88-Not Attempted due to Medical Conditions or Safety Concerns. Roll Left & Right (QC): 6 Sit to Lying (QC): 6 Lying to Sitting/Side of Bed(Q: 6 Sit to Stand (QC): 6 Chair/Qdt-bs-Kybic Xfer(QC): 6 Weight Bearing NWB right shoulder, sling on Gait Training Gait Assistive Device: Cane Large Base Quad 40ftx4 SBA QC Exercises Seated Therapy Exercises: Ankle pumps, Sit to stand, Long arc quads, Hip flexion Seated Reps: 12 Treatments gait in room around bed in tight areas as well as TRFs in out bed on left side, bed flat, pt. using bed rail . Pt. plans to get rail for her bed at home. Assessment Current Status: Good Progress gait and TRFs progressing very well PT Short Term Goals Short Term Goals Time Frame: November 03, 2021 Roll Left & Right: 4 Sit to lyin (Sara) Lying to sitting on side of be: 3 (Sara) Sit to stand: 4 (CGA) Chair/yzw-pf-cdfpb transfer: 4 (CGA) Walk 10 feet: 4 (CGA) Walk 50 feet with two turns: 4 (CGA) PT Assembler [employer] Goals Assembler [employer] Goals PT Prison Goals Time Frame: Nov 17, 2021 Roll Left & Right (QC): 6 Sit to Lying (QC): 4 (CGA) Lying-Sitting on Side/Bed(QC): 4 (CGA) Sit to Stand (QC): 4 (SBA) Chair/Zsr-rt-Hgkpb Xfer(QC): 4 (SBA) Toilet Transfer (QC): 4 (SBA) Car Transfer (QC): 4 (SBA) Does the Patient Walk: Yes Walk 10 feet (QC): 4 (SBA) Walk 50ft with 2 Turns (QC): 4 (SBA) Walk 150 ft (QC): 4 (SBA) Walking 10ft on Uneven Surface: 4 (SBA) 1 Step (curb) (QC): 4 (CGA) 4 Steps (QC): 88 12 Steps (QC): 88 Picking up an Object (QC): 4 (SA with breakfast and room attendant) Wheel 50 feet with 2 turns (QC: 9 Wheel 150 feet: 9 PT Plan Treatment/Plan Treatment Plan: Continue Plan of Care Treatment Plan: Bed Mobility, Education, Functional Activity Kobe, Functional Strength, Group Therapy, Gait, Safety, Therapeutic Exercise, Transfers Treatment Duration: Nov 17, 2021 Frequency: At least 5 of 7 days/Wk (IRF) Estimated Hrs Per Day: 1.5 hours per day Patient and/or Family Agrees t: Yes Safety Risks/Education Patient Education: Gait Training, Transfer Techniques, Correct Positioning, Safety Issues Teaching Recipient: Patient Teaching Methods: Demonstration, Discussion Response to Teaching: Verbalize Understanding, Return Demonstration, Reinforcement Needed Time/GCodes Time In: 1315 Time Out: 1345 Total Billed Treatment Time: 30 Total Billed Treatment 1,FA30m BARRY TABOR GLASS CLEANER November 03, 2021 14:03
[2021-11-03 20:00] VITALS: BP 124/60
[2021-11-03] MEDS: VITAMIN D3 25 MCG (1,000 UNITS) TABLET PO SCH (21:21)
[2021-11-03] MEDS: FERROUS SULF 325 MG (IRON) TAB PO SCH (21:21)
[2021-11-03] MEDS: rOPINIRole 1 MG (REQUIP) TABLET PO SCH (21:21)
[2021-11-03] MEDS: FLUTICASONE NASAL SPRAY (FLONASE) 16 GM BTL NS SCH (21:22)
[2021-11-03 22:45] VITALS: BP 126/59
[2021-11-04] MEDS: HYDROcodone/APAP 7.5 MG/325 MG (LORTAB, LORCET PLUS) TABLET PO PRN ×4 (04:26→21:02)
--- NOTE | 2021-11-04 06:08 | PM&R Progress Note ---
Subjective HPI/CC On Admission Date Seen by Provider: November 04, 2021 Time Seen by Provider: 11:30 Subjective/Events-last exam 11/04/21: Pt is doing well Set up for discharge on Sunday No other concerns Pain is well controlled thinks she is doing great 11/03/21: Pt is doing well Metoprolol will be held due to mild hypotension Pain is doing really well Sunday discharge since that is her birthday 11/02/2021: Pt is doing really well Having no new concerns Checked meds and labs No falls Pain is improved 11/01/2021: Pt is doing really well Walking with a cane Bowels moved yesterday Has a headache at times Overall dramatic improvement 10/31/2021: Pt dramatically improved Hemoglobin 8.8 Lortab given for pain Creatinine was 1.18 10/30/2021: Pt dramatically improved Completely lucid and no concerns Hemoglobin kamari to an appropriate level after 1 unit given a few days ago Bowels are moving No pain reported 10/29/21: Pt doing well No major issues overnight Will Heplock the D5NS normal saline Checked labs today but they are pending No falls 10/28/2021: Pt is dramatically improved Hemoglobin was 6.7, receiving one unit of blood No midline will be available because of history of breast cancer on the left with lymph node removal. High risk for lymphadenitis and on the right is the humerus fracture. Having a bowel movement now Potassium supplement also Review of Systems General: Fatigue, Malaise Musculoskeletal: arm pain Objective Exam Vital Signs Vital Signs Date Time Temp Pulse Resp B/P (MAP) Pulse Ox O2 Delivery O2 Flow Rate FiO2 11/04/21 19:40 36.6 63 16 123/57 (79) 98 Room Air Capillary Refill : General Appearance: WD/WN, Anxious, Chronically ill, Mild Distress HEENT: PERRL/EOMI, Normal ENT Inspection, Pharynx Normal Neck: Full Range of Motion, Normal Inspection, Non Tender, Supple, Carotid Bruit Respiratory: Chest Non Tender, Lungs Clear, Normal Breath Sounds, No Accessory Muscle Use, No Respiratory Distress Cardiovascular: Regular Rate, Rhythm, No Edema, No Gallop, No JVD, No Murmur, Normal Peripheral Pulses Gastrointestinal: Normal Bowel Sounds, No Organomegaly, No Pulsatile Mass, Non Tender, Soft Back: Normal Inspection, No CVA Tenderness, No Vertebral Tenderness Extremity: Normal Capillary Refill, Normal Inspection, Normal Range of Motion (Except right arm in sling), Non Tender, No Calf Tenderness, No Pedal Edema Neurologic/Psychiatric: Alert, Oriented x3, No Motor/Sensory Deficits, Normal Mood/Affect, 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 FIM Transfers Therapy Code Descriptions/Definitions Functional [place] Measure: 0=Not Assessed/NA 4=Minimal Assistance 1=Total Assistance 5=Supervision or Setup 2=Maximal Assistance 6=Modified [place] 3=Moderate Assistance 7=Complete IndependenceSCALE: Activities may be completed with or without assistive devices. 5-Gnksvzinfv-amtixym completes the activity by him/herself with no assistance from a helper. 5-Set-up or Clean-up Assistance-helper sets up or cleans up; patient completes activity. [place] assists only prior to or following the activity. 4-Supervision or Touching Assistance-helper provides verbal cues and/or touching/steadying and/or contact guard assistance as patient completes activity. Assistance may be provided throughout the activity or intermittently. 3-Partial/Moderate Assistance-helper does LESS THAN HALF the effort. [place] lifts, holds or supports trunk or limbs, but provides less than half the effort. 2-Substantial/Maximal Assistance-helper does MORE THAN HALF the effort. [place] lifts or holds trunk or limbs and provides more than half the effort. 8-Qjnmrafjm-yhsoke does ALL the effort. Patient does none of the effort to complete the activity. Or, the assistance of 2 or more helpers is required for the patient to complete the activity. If activity was not attempted, code reason: 7-Patient Refused. 9-Not Applicable-not attempted and the patient did not perform the activity before the current illness, exacerbation or injury. 10-Not Attempted due to Environmental Limitations-(lack of equipment, weather restraints, etc.). 88-Not Attempted due to Medical Conditions or Safety Concerns. Roll Left to Right (QC): 6 Sit to Lying (QC): 6 Sit to Stand (QC): 6 Chair/Rqq-rl-Qdweu Xfer(QC): 6 Car Transfer (QC): 3 Gait Training Does the Patient Walk?: Yes Distance: 96' Walk 10 feet (QC): 4 Walk 50 ft with 2 Turns(QC): 4 Walk 150 ft (QC): 4 Walking 10ft/uneven surface-QC: 88 Gait Persons Needed: 1 Gait Assistive Device: Cane Large Base Quad Wheelchair Training Does the Pt Use a Wheelchair?: No Wheel 50 ft with 2 turns (QC): 1 Wheel 150 ft (QC): 1 Stair Training 1 Step (curb) (QC): 88 4 Steps (QC): 88 12 Steps (QC): 88 Balance Picking up an Object (QC): 88 ADL-Treatment Eating (QC): 5 Oral Hygiene (QC): 3 Shower/Bathe Self (QC): 3 Upper Body Dressing (QC): 3 Lower Body Dressing (QC): 4 On/Off Footwear (QC): 5 Toileting Hygiene (QC): 4 Toilet Transfer (QC): 6 Assessment/Plan Assessment and Plan Assess & Plan/Chief Complaint Assessment: Right humerus fracture status post uncomplicated repair Slow recovery with physical debility 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 Chronic kidney disease Diabetes Current hypoglycemia will hold all diabetic meds Severe oversedation with baclofen Severe LENNY on BiPAP Poor appetite Osteoarthritis Anemia requiring 1 unit of transfusion on 10/28/2021 Plan: Gentle IV fluids of D5 NS Hold all diabetic meds Supportive care Use BiPAP 10/28/2021: Transfuse 1 unit today Supportive care Much improved status 10/29/21: Monitor sugar Fall risk 10/30/2021: Monitor sugar Supportive care 10/31/2021: Supportive care Monitor closely 11/01/2021: Continue aggressive rehab Supportive care 11/02/2021: Supportive care Discharge soon 11/03/2021: Dramatic improvement Discharge soon 11/04: DC Sat (1) Right humeral fracture Status: Acute (2) Debility, unspecified Status: Acute (3) Physical debility Status: Acute LINDSAY KRUSE DO November 04, 2021 06:08
[2021-11-04] MEDS: LEVOTHYROXINE 75 MCG (LEVOTHROID) TABLET PO SCH (06:33)
[2021-11-04] MEDS: inSUlin ASPART (NovoLOG) 1 UNIT/0.01 ML (CHARGE PER UNIT) SC SCH ×4 (06:33→21:01)
[2021-11-04 07:22] VITALS: BP 106/48
[2021-11-04] MEDS: CYANOCOBALAMIN 1,000 MCG (VITAMIN B-12) TABLET PO SCH (08:36)
[2021-11-04] MEDS: meTOprolol TARTRATE 50 MG (LOPRESSOR) TAB PO SCH ×2 (08:37→21:02)
[2021-11-04] MEDS: GABAPENTIN 600 MG (NEURONTIN) TAB PO SCH ×3 (08:37→21:02)
[2021-11-04] MEDS: BUMETANIDE 1 MG (BUMEX) TAB PO SCH (08:37)
[2021-11-04] MEDS: LORATADINE (CLARITIN) 10 MG TAB PO SCH (08:37)
[2021-11-04] MEDS: KCL 10 MEQ TAB (MICRO K) PO SCH (08:37)
[2021-11-04] MEDS: PANTOPRAZOLE 20 MG TABLET (PROTONIX) PO SCH ×2 (08:43→21:02)
[2021-11-04] MEDS: MICONAZOLE 2% POWDER (DESENEX AF) 90 GM TOP SCH ×2 (08:44→21:01)
[2021-11-04] MEDS: polyethylene glycoL POWDER 17 GM (MIRALAX) PACK PO SCH ×2 (08:52→19:39)
[2021-11-04] MEDS: DOCUSATE SODIUM 100 MG (COLACE) CAP PO SCH ×2 (08:52→19:38)
[2021-11-04] MEDS: SENNA W/DOCUSATE (SENOKOT S) TABLET PO SCH ×2 (08:52→19:39)
[2021-11-04] MEDS ORDERED: BUMETANIDE 1 MG (BUMEX) TAB PO PRN (09:45)
[2021-11-04] MEDS ORDERED: MICO90PO TOP (09:58)
[2021-11-04] MEDS ORDERED: HYDR-3817 PO (09:58)
[2021-11-04] MEDS ORDERED: METO-451 PO (09:58)
[2021-11-04] MEDS ORDERED: GLIM1TAB4 PO (09:58)
[2021-11-04] MEDS ORDERED: BUME1TAB8 PO (09:58)
--- NOTE | 2021-11-04 10:00 | D/C HH Face to Face Order ---
D/C Face to Face Orders Reconcile Patient Problems Problems Reviewed?: Yes Instructions for Patient Via [facility], Patient Instructions/FollowUp: PCP 1 week Physician to follow Patient: [facility] Discharge Diet for Home: ADA Diet Patient Problems: Humerus fracture DM Patient Data-Allergies,Ht & Wt Patient Allergies: Coded Allergies: cephalexin (Verified Allergy, Unknown, 07/07/20) doxycycline (Verified Allergy, Unknown, 07/07/20) levofloxacin (Verified Allergy, Unknown, 07/07/20) Home Health Need/Face to Face Date of Face to Face: November 04, 2021 Clinical Findings: Generalized weakness and fatigue, Instability, Muscle weakness I have seen Pt fujv-wt-kipg: Yes Discharged To: Home Diagnosis/Conditions: Humerus fracture Patient is Homebound due to: James fall risk due to instabilty, Muscle weakness Homebound Status Due to the above stated illness, injury or surgical procedure (medical condition or diagnosis) and associated clinical findings, the patient is homebound because of his/her inability to leave home except with aid of a supportive device and/or person AND leaving the home requires a considerable and taxing effort or is medically contraindicated. Pt req the following assistanc: Cane Walker Home Health Nursing Orders Home Health Services Order: Nursing Services, Physics Technician-Evaluate & Tr eat, Physical Therapy-Evaluate & Treat Certify Stmt I certify that this patient is under my care and that I, a nurse practitioner or a physician; a medical receptionist medical assistant working with me, had a face to face encounter that - meets the physician face to face encounter requirements with this patient as dated. LINDSAY KRUSE DO November 04, 2021 10:00
--- NOTE | 2021-11-04 10:06 | Physical Therapy Daily Note ---
PT Daily Note-Current Subjective Pt. and present for DC education . PT OT co Rx to accommodate husbands availability. No c/o pain. Pain Location: No Pain Reported Mental Status Patient Orientation: Normal For Age Attachments: Other-See Comments (racheling RUE) Transfers SCALE: Activities may be completed with or without assistive devices. 2-Rbntnilchp-tkzsaso completes the activity by him/herself with no assistance from a helper. 5-Set-up or Clean-up Assistance-helper sets up or cleans up; patient completes activity. [place] assists only prior to or following the activity. 4-Supervision or Touching Assistance-helper provides verbal cues and/or touching/steadying and/or contact guard assistance as patient completes activity. Assistance may be provided throughout the activity or intermittently. 3-Partial/Moderate Assistance-helper does LESS THAN HALF the effort. [place] lifts, holds or supports trunk or limbs, but provides less than half the effort. 2-Substantial/Maximal Assistance-helper does MORE THAN HALF the effort. [place] lifts or holds trunk or limbs and provides more than half the effort. 9-Mijkjbadh-zhzbwb does ALL the effort. Patient does none of the effort to complete the activity. Or, the assistance of 2 or more helpers is required for the patient to complete the activity. If activity was not attempted, code reason: 7-Patient Refused. 9-Not Applicable-not attempted and the patient did not perform the activity before the current illness, exacerbation or injury. 10-Not Attempted due to Environmental Limitations-(lack of equipment, weather restraints, etc.). 88-Not Attempted due to Medical Conditions or Safety Concerns. Roll Left & Right (QC): 6 Sit to Lying (QC): 6 Lying to Sitting/Side of Bed(Q: 6 Sit to Stand (QC): 6 Chair/Bae-sf-Szzgw Xfer(QC): 6 Toilet Transfer (QC): 6 Car Transfer (QC): 6 and pt. describe home bed, toilet and car situation and share what they had done previous to this as pt. had been home for some time managing before surgery. was instructed in how to cue pt. during sup to sit TRF as well as about the possible use of a device to simulate bed rail Weight Bearing NWB right shoulder, sling on Gait Training Does the Patient Walk?: Yes Walk 10 feet (QC): 6 Walk 50 ft with 2 Turns(QC): 6 Walk 150 ft (QC): 6 Walking 10ft/uneven surface-QC: 4 Gait Persons Needed: 1 Gait Assistive Device: Cane Large Base Quad pt. conts to ambulate head down, seldom glancing up at her surroundings, short step length, decreased heel strike, good use of QC with good sequence and pattern. was taught use of gait belt and demonstrated good CGA when necessary for ambulation Stair Training Stair Training: Handrails/: 1 handrail #of Steps: 4 1 Step (curb) (QC): 4 4 Steps (QC): 4 12 Steps (QC): 88 Stairs: Pattern: Reciprocal pt.and demonstrated safe technique for up down 4 steps using just one rail , CGA at gait belt and below pt. for safety etc. Balance Picking up an Object (QC): 5 (snuff maker was retrieved for pt.) Treatments PT OT co Rx for family education and QC assessment. available at this time. See OT note for functional education with family and QC results Assessment Current Status: Good Progress meets goals, much decreased pain, increased funct mob, and pt demonstrated skills for safe home management PT Short Term Goals Short Term Goals Time Frame: November 03, 2021 Roll Left & Right: 4 Sit to lyin (Sara) Lying to sitting on side of be: 3 (Sara) Sit to stand: 4 (CGA) Chair/rcj-dh-icmkw transfer: 4 (CGA) Walk 10 feet: 4 (CGA) Walk 50 feet with two turns: 4 (CGA) PT Facilities Administrator Goals Retirement Goals PT Retirement Goals Time Frame: Nov 17, 2021 Roll Left & Right (QC): 6 Sit to Lying (QC): 4 (CGA) Lying-Sitting on Side/Bed(QC): 4 (CGA) Sit to Stand (QC): 4 (SBA) Chair/Bmd-dx-Tggwp Xfer(QC): 4 (SBA) Toilet Transfer (QC): 4 (SBA) Car Transfer (QC): 4 (SBA) Does the Patient Walk: Yes Walk 10 feet (QC): 4 (SBA) Walk 50ft with 2 Turns (QC): 4 (SBA) Walk 150 ft (QC): 4 (SBA) Walking 10ft on Uneven Surface: 4 (SBA) 1 Step (curb) (QC): 4 (CGA) 4 Steps (QC): 88 12 Steps (QC): 88 Picking up an Object (QC): 4 (SA with snuff maker) Wheel 50 feet with 2 turns (QC: 9 Wheel 150 feet: 9 PT Plan Treatment/Plan Treatment Plan: Continue Plan of Care Treatment Plan: Bed Mobility, Education, Functional Activity Kobe, Functional Strength, Group Therapy, Gait, Safety, Therapeutic Exercise, Transfers Treatment Duration: Nov 17, 2021 Frequency: At least 5 of 7 days/Wk (IRF) Estimated Hrs Per Day: 1.5 hours per day Patient and/or Family Agrees t: Yes Safety Risks/Education Patient Education: Gait Training, Transfer Techniques, Steps, Correct Positioning, Instructions to Caregiver, Disease Process, Safety Issues Teaching Recipient: Patient, Family Teaching Methods: Demonstration, Discussion Response to Teaching: Verbalize Understanding, Return Demonstration, Reinforcement Needed Time/GCodes Time In: 900 Time Out: 1000 Total Billed Treatment Time: 60 Total Billed Treatment 1,GT20m,FA40m BARRY TABOR ELECTRON BEAM WELDER SETTER November 04, 2021 10:06
--- NOTE | 2021-11-04 10:11 | Occupational Ther Daily Note ---
OT Current Status-Daily Note Subjective Pt reports increased pain in R shoulder this date; 01/25. RN in to give pain meds at start of session. Co-treat with PT for part of session secondary to scheduled family training. Appearance Pt left sitting in chair, all needs within reach, spouse in room. Mental Status/Objective Patient Orientation: Person, Place, Situation ADL-Treatment Therapy Code Descriptions/Definitions Functional [place] Measure: 0=Not Assessed/NA 4=Minimal Assistance 1=Total Assistance 5=Supervision or Setup 2=Maximal Assistance 6=Modified [place] 3=Moderate Assistance 7=Complete IndependenceSCALE: Activities may be completed with or without assistive devices. 0-Bkhqrjanfy-ddmfcba completes the activity by him/herself with no assistance from a helper. 5-Set-up or Clean-up Assistance-helper sets up or cleans up; patient completes activity. [place] assists only prior to or following the activity. 4-Supervision or Touching Assistance-helper provides verbal cues and/or touching/steadying and/or contact guard assistance as patient completes activity. Assistance may be provided throughout the activity or intermittently. 3-Partial/Moderate Assistance-helper does LESS THAN HALF the effort. [place] lifts, holds or supports trunk or limbs, but provides less than half the effort. 2-Substantial/Maximal Assistance-helper does MORE THAN HALF the effort. [place] lifts or holds trunk or limbs and provides more than half the effort. 3-Npmhznwws-lxakfk does ALL the effort. Patient does none of the effort to complete the activity. Or, the assistance of 2 or more helpers is required for the patient to complete the activity. If activity was not attempted, code reason: 7-Patient Refused. 9-Not Applicable-not attempted and the patient did not perform the activity before the current illness, exacerbation or injury. 10-Not Attempted due to Environmental Limitations-(lack of equipment, weather restraints, etc.). 88-Not Attempted due to Medical Conditions or Safety Concerns. Eating (QC): 5 Oral Hygiene (QC): 5 Shower/Bathe Self (QC): 3 (min) Upper Body Dressing (QC): 3 (min) Lower Body Dressing (QC): 5 On/Off Footwear: 5 Toileting Hygiene (QC): 6 Toilet Transfer (QC): 6 Spouse present for family training. Sponge bath performed partially in sitting and standing. No Lob or safety concerns observed while standing. Pt able to recall compensatory method to wash LUE/axilla this date, no assist. She was able to reach all body parts, assist only to passively abduct RUE in order for patient to wash axilla. Spouse educated on passive range during adls. OT reinforced no AROM or >90 degrees PROM at this time. While seated, She threaded BLE's into underwear. With cues, pt was able to hold pants with RUE (keeping elbow in front of body) as LUE reached behind to pull up in back. Extra time to rod puller and coiler R hip but no physical assistance needed today. When donning dress, pt was able to thread feet into dress first, stand to pull up over hips, and thread LUE. Minimal assist to thread RUE and assist to zip up in the back. Min A n eeded to don/doff RUE sling; education to spouse on correct positioning. Spouse able to don compression stockings. Pt indep with donning socks. Pt reports that her spouse assisted with set up of oral care this date, OT reminded pt on compensatory strategies in order to complete indep with one hand. Other Treatment Spouse present for family training. Demonstration/Education on positioning of RUE in sling, no shoulder/elbow extension during functional tasks, isometric exercises, hand/elbow/wrist AROM exercises, proper body mechanics, ADLs, compensatory methods, and transfer techniques. Pt able to demonstrate bed mobility with verbal cues only. She ambulated to/from therapy gym with SBA and use of cane. Slow but steady gait. Pt has tendency to look down during gait, cues given for improved posture. Spouse able to demonstrate competence with assisting patient up/down steps post instruction. Family able to ask appropriate questions and appears to have good understanding. No concerns reported by spouse. Education OT Patient Education: Correct positioning, Energy conservation, Exercise program, Instructions to caregiver, Modified ADL techniques, Progress toward Goal/Update tx plan, Purpose of tx/functional activities, Reviewed precautions, Rehab process, Safety issues, Transfer techniques Teaching Recipient: Patient, Family Teaching Methods: Demonstration, Discussion Response to Teaching: Verbalize Understanding, Return Demonstration OT Short Term Goals Short Term Goals Time Frame: November 10, 2021 Eatin Oral hygiene: 4 Toileting hygiene: 4 Shower/bathe self: 3 Upper body dressin Lower body dressin Putting on/taking off footwear: 3 OT [facility] Goals Stripper Soft Plastic Goals Time Frame: Nov 24, 2021 Eating (QC): 5 (met) Oral Hygiene (QC): 5 (met) Toileting Hygiene (QC): 6 (met) Shower/Bathe Self (QC): 4 (not met, min a for passive shoulder ROM) Upper Body Dressing (QC): 4 (not met, min a for RUE/zipper) Lower Body Dressing (QC): 5 (met) On/Off Footwear (QC): 5 (met) 1=Demonstrate adherence to instructed precautions during ADL tasks. 2=Patient will verbalize/demonstrate understanding of assistive devices/modifications for ADL. 3=Patient will improve strength/tolerance for activity to enable patient to perform ADL's. OT Education/Plan Problem List/Assessment Assessment: Decreased UE Strength, Impaired Coordination, Impaired I ADL's, Impaired Self-Care Skills, Restricted Funct UE ROM Discharge Recommendations Plan/Recommendations: Continue POC Therapy Discharge Recommendati: Homemaker Support, Home & Family, Post Acute OT (Home health vs outpatient ) Equpiment Recommendations-D/C: Dusting And Brushing Machine Operator Treatment Plan/Plan of Care Treatment,Training & Education: Yes Patient would benefit from OT for education, treatment and training to promote independence in ADL's, mobility, safety and/or upper extremity function for ADL's. Plan of Care: ADL Retraining, Cognitive Retraining, Functional Mobility, Group Exercise/Act as Ind, UE Funct Exercise/Act Treatment Duration: Nov 24, 2021 Frequency: At least 5 of 7 days/Wk (IRF) Estimated Hrs Per Day: 1.5 hours per day (75-90 min/day) Rehab Potential: Good Time/GCodes Start Time: 08:30 Stop Time: 10:00 Total Time Billed (hr/min): 90 Billed Treatment Time 1 visit ADL x3 (50 min) FA x3 (40 min) Teressa Ventura OT November 04, 2021 10:11
[2021-11-04] MEDS: ENOXAPARIN 40 MG/0.4 ML (LOVENOX) SYR SC SCH (11:36)
--- NOTE | 2021-11-04 11:56 | Physical Therapy Daily Note ---
PT Daily Note-Current Subjective Pt. agrees to Rx. Pain Location: No Pain Reported Mental Status Patient Orientation: Normal For Age Attachments: Other-See Comments (sling) Transfers SCALE: Activities may be completed with or without assistive devices. 3-Orfdgquhih-cusekac completes the activity by him/herself with no assistance from a helper. 5-Set-up or Clean-up Assistance-helper sets up or cleans up; patient completes activity. [place] assists only prior to or following the activity. 4-Supervision or Touching Assistance-helper provides verbal cues and/or touching/steadying and/or contact guard assistance as patient completes activity. Assistance may be provided throughout the activity or intermittently. 3-Partial/Moderate Assistance-helper does LESS THAN HALF the effort. [place] lifts, holds or supports trunk or limbs, but provides less than half the effort. 2-Substantial/Maximal Assistance-helper does MORE THAN HALF the effort. [place] lifts or holds trunk or limbs and provides more than half the effort. 7-Inprjxrdp-scssja does ALL the effort. Patient does none of the effort to complete the activity. Or, the assistance of 2 or more helpers is required for the patient to complete the activity. If activity was not attempted, code reason: 7-Patient Refused. 9-Not Applicable-not attempted and the patient did not perform the activity before the current illness, exacerbation or injury. 10-Not Attempted due to Environmental Limitations-(lack of equipment, weather restraints, etc.). 88-Not Attempted due to Medical Conditions or Safety Concerns. all sit to stand and toilet TRFs mod I to SBA Weight Bearing NWB right shoulder, sling on Gait Training Does the Patient Walk?: Yes Gait Assistive Device: Cane Large Base Quad 50 ft x 2 SBA Exercises Supine Ex: Ankle pumps, Quad Set, Glut sets, Lower trunk rotation, Heel Slides, Short Arc Quads, Straight leg raise, Hip abd/add Supine Reps: 20 Seated Therapy Exercises: Ankle pumps, Sit to stand, Long arc quads, Hip flexion Seated Reps: 15 Treatments toileted managing all indep/SBA Assessment Current Status: Good Progress PT Short Term Goals Short Term Goals Time Frame: November 03, 2021 Roll Left & Right: 4 Sit to lyin (Sara) Lying to sitting on side of be: 3 (Sara) Sit to stand: 4 (CGA) Chair/sxk-jf-ncuhd transfer: 4 (CGA) Walk 10 feet: 4 (CGA) Walk 50 feet with two turns: 4 (CGA) PT Shelter Goals Shelter Goals PT Shelter Goals Time Frame: Nov 17, 2021 Roll Left & Right (QC): 6 Sit to Lying (QC): 4 (CGA) Lying-Sitting on Side/Bed(QC): 4 (CGA) Sit to Stand (QC): 4 (SBA) Chair/Bag-zh-Hzpla Xfer(QC): 4 (SBA) Toilet Transfer (QC): 4 (SBA) Car Transfer (QC): 4 (SBA) Does the Patient Walk: Yes Walk 10 feet (QC): 4 (SBA) Walk 50ft with 2 Turns (QC): 4 (SBA) Walk 150 ft (QC): 4 (SBA) Walking 10ft on Uneven Surface: 4 (SBA) 1 Step (curb) (QC): 4 (CGA) 4 Steps (QC): 88 12 Steps (QC): 88 Picking up an Object (QC): 4 (SA with risk assessor) Wheel 50 feet with 2 turns (QC: 9 Wheel 150 feet: 9 PT Plan Treatment/Plan Treatment Plan: Continue Plan of Care Treatment Plan: Bed Mobility, Education, Functional Activity Kobe, Functional Strength, Group Therapy, Gait, Safety, Therapeutic Exercise, Transfers Treatment Duration: Nov 17, 2021 Frequency: At least 5 of 7 days/Wk (IRF) Estimated Hrs Per Day: 1.5 hours per day Patient and/or Family Agrees t: Yes Safety Risks/Education Patient Education: Gait Training, Transfer Techniques, Correct Positioning, Safety Issues Teaching Recipient: Patient Teaching Methods: Demonstration Response to Teaching: Verbalize Understanding Time/GCodes Time In: 1100 Time Out: 1130 Total Billed Treatment Time: 30 Total Billed Treatment 1,GT10m,EX20m BARRY TABOR COURT BAILIFF OR SHERIFF November 04, 2021 11:56
[2021-11-04 19:40] VITALS: BP 123/57
[2021-11-04] MEDS: FLUTICASONE NASAL SPRAY (FLONASE) 16 GM BTL NS SCH (21:01)
[2021-11-04] MEDS: VITAMIN D3 25 MCG (1,000 UNITS) TABLET PO SCH (21:02)
[2021-11-04] MEDS: FERROUS SULF 325 MG (IRON) TAB PO SCH (21:02)
[2021-11-04] MEDS: rOPINIRole 1 MG (REQUIP) TABLET PO SCH (21:02)
[2021-11-05] MEDS: LEVOTHYROXINE 75 MCG (LEVOTHROID) TABLET PO SCH (05:36)
[2021-11-05] MEDS: HYDROcodone/APAP 7.5 MG/325 MG (LORTAB, LORCET PLUS) TABLET PO PRN ×2 (05:37→10:21)
[2021-11-05] MEDS: inSUlin ASPART (NovoLOG) 1 UNIT/0.01 ML (CHARGE PER UNIT) SC SCH (06:39)
[2021-11-05 07:30] VITALS: BP 124/73
[2021-11-05] MEDS: GABAPENTIN 600 MG (NEURONTIN) TAB PO SCH (08:16)
[2021-11-05] MEDS: PANTOPRAZOLE 20 MG TABLET (PROTONIX) PO SCH (08:16)
[2021-11-05] MEDS: CYANOCOBALAMIN 1,000 MCG (VITAMIN B-12) TABLET PO SCH (08:16)
[2021-11-05] MEDS: LORATADINE (CLARITIN) 10 MG TAB PO SCH (08:17)
[2021-11-05] MEDS: meTOprolol TARTRATE 50 MG (LOPRESSOR) TAB PO SCH (08:17)
[2021-11-05] MEDS: DOCUSATE SODIUM 100 MG (COLACE) CAP PO SCH (08:17)
[2021-11-05] MEDS: KCL 10 MEQ TAB (MICRO K) PO SCH (08:17)
--- NOTE | 2021-11-05 09:32 | Discharge Summary ---
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 Chronic kidney disease Diabetes Current hypoglycemia will hold all diabetic meds Severe oversedation with baclofen Severe LENNY on BiPAP Poor appetite Osteoarthritis Anemia requiring 1 unit of transfusion on 10/28/2021 Plan: Gentle IV fluids of D5 NS Hold all diabetic meds Supportive care Use BiPAP 10/28/2021: Transfuse 1 unit today Supportive care Much improved status 10/29/21: Monitor sugar Fall risk 10/30/2021: Monitor sugar Supportive care 10/31/2021: Supportive care Monitor closely 11/01/2021: Continue aggressive rehab Supportive care 11/02/2021: Supportive care Discharge soon 11/03/2021: Dramatic improvement Discharge soon 11/04: DC Sat (1) Right humeral fracture Status: Acute (2) Debility, unspecified Status: Acute (3) Physical debility Status: Acute Discharge Summary Discharge Physical Examination Allergies: Coded Allergies: cephalexin (Verified Allergy, Unknown, 07/07/20) doxycycline (Verified Allergy, Unknown, 07/07/20) levofloxacin (Verified Allergy, Unknown, 07/07/20) Vitals & I&Os Vital Signs Date Time Temp Pulse Resp B/P (MAP) Pulse Ox O2 Delivery O2 Flow Rate FiO2 11/05/21 10:30 36.7 62 20 124/73 98 Room Air General Appearance: Alert, Oriented X3, Cooperative Respiratory: Clear to Auscultation Cardiovascular: Regular Rate Neuro: Normal Gait, Normal Speech, Strength at 5/5 X4 Ext Hospital Course Was the Problem List Reviewed?: Yes The patient is a 75 YO female who was admitted to inpatient rehab for debility secondary to a right humerus fracture repair. The patient presented was admitted to inpatient rehab on 10/27/21, from [facility] after an uncomplicated right humerus fracture repair. At presentation she had a creatinine of 1.6, and was hypoglycemic. Her creatinine was monitored closely throughout her stay, and her DM medication was held until her blood sugar normalized. Additionally she received D5NS IV fluid for supportive care for her hypoglycemia. Throughout her stay she fully participated in her physical therapy, occupational therapy and speech therapy. The patient focused on bed mobility, functional activity tolerance, functional strength, gait, safety, ADLs, and transfers. She showed great improvement in her strength, endurance, and stamina throughout her rehab course. Her medical status was closely monitored throughout her stay. She had a hemoglobin of 6.7 on 10/28/21, and subsequently received 1 unit of blood. Following the blood transfusion her hemoglobin increased and stabilized. The patient will be discharged home on 11/05/21. She feels comfortable with this plan and is content with her progress she made throughout her rehab course. Labs (last 24 hrs) Laboratory Tests 10/27/21 12:04: Glucometer 101 10/27/21 12:05: White Blood Count 9.8, Red Blood Count 2.83L, Hemoglobin 8.2L, Hematocrit 25L, Mean Corpuscular Volume 88, Mean Corpuscular Hemoglobin 29, Mean Corpuscular Hemoglobin Concent 33, Red Cell Distribution Width 14.1, Platelet Count 219, Mean Platelet Volume 10.3, Immature Granulocyte % (Auto) 0, Neutrophils (%) (Auto) 77H, Lymphocytes (%) (Auto) 14, Monocytes (%) (Auto) 9, Eosinophils (%) (Auto) 1, Basophils (%) (Auto) 0, Neutrophils # (Auto) 7.5, Lymphocytes # (Auto) 1.3, Monocytes # (Auto) 0.8, Eosinophils # (Auto) 0.1, Basophils # (Auto) 0.0, Immature Granulocyte # (Auto) 0.0, Sodium Level 138, Potassium Level 3.9, Chloride Level 103, Carbon Dioxide Level 24, Anion Gap 11, Blood Urea Nitrogen 35H, Creatinine 1.61H, Estimat Glomerular Filtration Rate 33, BUN/Creatinine Ratio 22, Glucose Level 138H, Lactic Acid Level 1.07, Calcium Level 9.1, Corrected Calcium 9.5, Total Bilirubin 0.6, Aspartate Amino Transf (AST/SGOT) 16, Alanine Aminotransferase (ALT/SGPT) 13, Alkaline Phosphatase 77, Total Protein 6.3L, Albumin 3.5, Procalcitonin 0.15H 10/27/21 15:26: Glucometer 117H 10/27/21 20:38: Glucometer 75 10/28/21 01:46: Glucometer 97 10/28/21 05:20: White Blood Count 5.7, Red Blood Count 2.31L, Hemoglobin 6.7*L, Hematocrit 21L, Mean Corpuscular Volume 90, Mean Corpuscular Hemoglobin 29, Mean Corpuscular Hemoglobin Concent 32, Red Cell Distribution Width 14.3, Platelet Count 162, Mean Platelet Volume 10.2, Immature Granulocyte % (Auto) 0, Neutrophils (%) (Auto) 65, Lymphocytes (%) (Auto) 22, Monocytes (%) (Auto) 10, Eosinophils (%) (Auto) 2, Basophils (%) (Auto) 1, Neutrophils # (Auto) 3.7, Lymphocytes # (Auto) 1.3, Monocytes # (Auto) 0.5, Eosinophils # (Auto) 0.1, Basophils # (Auto) 0.0, Immature Granulocyte # (Auto) 0.0, Sodium Level 142, Potassium Level 3.1L, Chloride Level 108H, Carbon Dioxide Level 22, Anion Gap 12, Blood Urea Nitrogen 37H, Creatinine 1.48H, Estimat Glomerular Filtration Rate 37, BUN/Creatinine Ratio 25, Glucose Level 106H, Calcium Level 8.3L, Corrected Calcium 9.2, Magnesium Level 1.1*L, Iron Level 23L, Total Iron Binding Capacity 210L, Unsaturated Iron Binding Capacity 187, Transferrin % Saturation 11L, Ferritin 137.5, Total Bilirubin 0.4, Aspartate Amino Transf (AST/SGOT) 13, Alanine Aminotransferase (ALT/SGPT) 10, Alkaline Phosphatase 67, Total Protein 5.3L, Albumin 2.9L, Vitamin B12 Level 746 10/28/21 10:48: Glucometer 200H 10/28/21 15:24: Glucometer 149H 10/28/21 20:33: Glucometer 187H 10/29/21 05:07: Glucometer 109 10/29/21 05:50: White Blood Count 4.7, Red Blood Count 2.89L, Hemoglobin 8.4#L, Hematocrit 26L, Mean Corpuscular Volume 89, Mean Corpuscular Hemoglobin 29, Mean Corpuscular Hemoglobin Concent 33, Red Cell Distribution Width 14.6H, Platelet Count 168, Mean Platelet Volume 9.8, Immature Granulocyte % (Auto) 0, Neutrophils (%) (Auto) 59, Lymphocytes (%) (Auto) 25, Monocytes (%) (Auto) 9, Eosinophils (%) (Auto) 7, Basophils (%) (Auto) 1, Neutrophils # (Auto) 2.8, Lymphocytes # (Auto) 1.2, Monocytes # (Auto) 0.4, Eosinophils # (Auto) 0.3, Basophils # (Auto) 0.0, I mmature Granulocyte # (Auto) 0.0, Sodium Level 141, Potassium Level 3.5L, Chloride Level 110H, Carbon Dioxide Level 21, Anion Gap 10, Blood Urea Nitrogen 27H, Creatinine 1.19, Estimat Glomerular Filtration Rate 48, BUN/Creatinine Ratio 23, Glucose Level 121H, Calcium Level 8.5, Corrected Calcium 9.4, Total Bilirubin 0.6, Aspartate Amino Transf (AST/SGOT) 15, Alanine Aminotransferase (ALT/SGPT) 11, Alkaline Phosphatase 69, Total Protein 5.2L, Albumin 2.9L 10/29/21 10:51: Glucometer 134H 10/29/21 17:05: Glucometer 126H 10/29/21 20:08: Glucometer 127H 10/30/21 05:45: Glucometer 129H 10/30/21 10:53: Glucometer 155H 10/30/21 15:31: Glucometer 154H 10/30/21 20:03: Glucometer 143H 10/31/21 05:18: White Blood Count 5.7, Red Blood Count 2.97L, Hemoglobin 8.8L, Hematocrit 27L, Mean Corpuscular Volume 90, Mean Corpuscular Hemoglobin 30, Mean Corpuscular Hemoglobin Concent 33, Red Cell Distribution Width 14.3, Platelet Count 221, Mean Platelet Volume 9.9, Immature Granulocyte % (Auto) 1, Neutrophils (%) (Auto) 56, Lymphocytes (%) (Auto) 27, Monocytes (%) (Auto) 8, Eosinophils (%) (Auto) 8, Basophils (%) (Auto) 1, Neutrophils # (Auto) 3.2, Lymphocytes # (Auto) 1.5, Monocytes # (Auto) 0.5, Eosinophils # (Auto) 0.5H, Basophils # (Auto) 0.0, Immature Granulocyte # (Auto) 0.0, Sodium Level 137, Potassium Level 3.7, Chloride Level 105, Carbon Dioxide Level 20L, Anion Gap 12, Blood Urea Nitrogen 20H, Creatinine 1.18, Estimat Glomerular Filtration Rate 48, BUN/Creatinine Ratio 17, Glucose Level 133H, Calcium Level 8.8, Corrected Calcium 9.5, Total Bilirubin 0.5, Aspartate Amino Transf (AST/SGOT) 24, Alanine Aminotransferase (ALT/SGPT) 10, Alkaline Phosphatase 92, Total Protein 5.6L, Albumin 3.1L 10/31/21 10:47: Glucometer 192H 10/31/21 15:13: Glucometer 122H 10/31/21 20:20: Glucometer 149H 11/01/21 05:31: Glucometer 123H 11/01/21 10:49: Glucometer 163H 11/01/21 15:10: Glucometer 208H 11/01/21 20:05: Glucometer 132H 11/02/21 05:21: Glucometer 157H 11/02/21 10:57: Glucometer 172H 11/02/21 15:01: Glucometer 167H 11/02/21 19:59: Glucometer 201H 11/03/21 05:35: Glucometer 176H 11/03/21 10:57: Glucometer 260H 11/03/21 16:10: Glucometer 190H 11/03/21 21:03: Glucometer 226H 11/04/21 05:34: Glucometer 154H 11/04/21 10:54: Glucometer 253H 11/04/21 16:30: Glucometer 176H 11/04/21 20:42: Glucometer 222H 11/05/21 05:38: Glucometer 160H Pending Labs Laboratory Tests 10/27/21 12:04: Glucometer 101 10/27/21 12:05: White Blood Count 9.8, Red Blood Count 2.83, Hemoglobin 8.2, Hematocrit 25, Mean Corpuscular Volume 88, Mean Corpuscular Hemoglobin 29, Mean Corpuscular Hemoglobin Concent 33, Red Cell Distribution Width 14.1, Platelet Count 219, Mean Platelet Volume 10.3, Immature Granulocyte % (Auto) 0, Neutrophils (%) (Auto) 77, Lymphocytes (%) (Auto) 14, Monocytes (%) (Auto) 9, Eosinophils (%) (Auto) 1, Basophils (%) (Auto) 0, Neutrophils # (Auto) 7.5, Lymphocytes # (Auto) 1.3, Monocytes # (Auto) 0.8, Eosinophils # (Auto) 0.1, Basophils # (Auto) 0.0, Immature Granulocyte # (Auto) 0.0, Sodium Level 138, Potassium Level 3.9, Chloride Level 103, Carbon Dioxide Level 24, Anion Gap 11, Blood Urea Nitrogen 35, Creatinine 1.61, Estimat Glomerular Filtration Rate 33, BUN/Creatinine Ratio 22, Glucose Level 138, Lactic Acid Level 1.07, Calcium Level 9.1, Corrected Calcium 9.5, Total Bilirubin 0.6, Aspartate Amino Transf (AST/SGOT) 16, Alanine Aminotransferase (ALT/SGPT) 13, Alkaline Phosphatase 77, Total Protein 6.3, Albumin 3.5, Procalcitonin 0.15 10/27/21 15:26: Glucometer 117 10/27/21 20:38: Glucometer 75 10/28/21 01:46: Glucometer 97 10/28/21 05:20: White Blood Count 5.7, Red Blood Count 2.31, Hemoglobin 6.7, Hematocrit 21, Mean Corpuscular Volume 90, Mean Corpuscular Hemoglobin 29, Mean Corpuscular Hemoglobin Concent 32, Red Cell Distribution Width 14.3, Platelet Count 162, Mean Platelet Volume 10.2, Immature Granulocyte % (Auto) 0, Neutrophils (%) (Auto) 65, Lymphocytes (%) (Auto) 22, Monocytes (%) (Auto) 10, Eosinophils (%) (Auto) 2, Basophils (%) (Auto) 1, Neutrophils # (Auto) 3.7, Lymphocytes # (Auto) 1.3, Monocytes # (Auto) 0.5, Eosinophils # (Auto) 0.1, Basophils # (Auto) 0.0, Immature Granulocyte # (Auto) 0.0, Sodium Level 142, Potassium Level 3.1, Chloride Level 108, Carbon Dioxide Level 22, Anion Gap 12, Blood Urea Nitrogen 37, Creatinine 1.48, Estimat Glomerular Filtration Rate 37, BUN/Creatinine Ratio 25, Glucose Level 106, Calcium Level 8.3, Corrected Calcium 9.2, Magnesium Level 1.1, Iron Level 23, Total Iron Binding Capacity 210, Unsaturated Iron Binding Capacity 187, Transferrin % Saturation 11, Ferritin 137.5, Total Bilirubin 0.4, Aspartate Amino Transf (AST/SGOT) 13, Alanine Aminotransferase (ALT/SGPT) 10, Alkaline Phosphatase 67, Total Protein 5.3, Albumin 2.9, Vitamin B12 Level 746 10/28/21 10:48: Glucometer 200 10/28/21 15:24: Glucometer 149 10/28/21 20:33: Glucometer 187 10/29/21 05:07: Glucometer 109 10/29/21 05:50: White Blood Count 4.7, Red Blood Count 2.89, Hemoglobin 8.4, Hematocrit 26, Mean Corpuscular Volume 89, Mean Corpuscular Hemoglobin 29, Mean Corpuscular Hemoglobin Concent 33, Red Cell Distribution Width 14.6, Platelet Count 168, Mean Platelet Volume 9.8, Immature Granulocyte % (Auto) 0, Neutrophils (%) (Auto) 59, Lymphocytes (%) (Auto) 25, Monocytes (%) (Auto) 9, Eosinophils (%) (Auto) 7, Basophils (%) (Auto) 1, Neutrophils # (Auto) 2.8, Lymphocytes # (Auto) 1.2, Monocytes # (Auto) 0.4, Eosinophils # (Auto) 0.3, Basophils # (Auto) 0.0, Immature Granulocyte # (Auto) 0.0, Sodium Level 141, Potassium Level 3.5, Chloride Level 110, Carbon Dioxide Level 21, Anion Gap 10, Blood Urea Nitrogen 27, Creatinine 1.19, Estimat Glomerular Filtration Rate 48, BUN/Creatinine Ratio 23, Glucose Level 121, Calcium Level 8.5, Corrected Calcium 9.4, Total Bilirubin 0.6, Aspartate Amino Transf (AST/SGOT) 15, Alanine Aminotransferase (ALT/SGPT) 11, Alkaline Phosphatase 69, Total Protein 5.2, Albumin 2.9 10/29/21 10:51: Glucometer 134 10/29/21 17:05: Glucometer 126 10/29/21 20:08: Glucometer 127 10/30/21 05:45: Glucometer 129 10/30/21 10:53: Glucometer 155 10/30/21 15:31: Glucometer 154 10/30/21 20:03: Glucometer 143 10/31/21 05:18: White Blood Count 5.7, Red Blood Count 2.97, Hemoglobin 8.8, Hematocrit 27, Mean Corpuscular Volume 90, Mean Corpuscular Hemoglobin 30, Mean Corpuscular Hemoglobin Concent 33, Red Cell Distribution Width 14.3, Platelet Count 221, Mean Platelet Volume 9.9, Immature Granulocyte % (Auto) 1, Neutrophils (%) (Auto) 56, Lymphocytes (%) (Auto) 27, Monocytes (%) (Auto) 8, Eosinophils (%) (Auto) 8, Basophils (%) (Auto) 1, Neutrophils # (Auto) 3.2, Lymphocytes # (Auto) 1.5, Monocytes # (Auto) 0.5, Eosinophils # (Auto) 0.5, Basophils # (Auto) 0.0, Immature Granulocyte # (Auto) 0.0, Sodium Level 137, Potassium Level 3.7, Chloride Level 105, Carbon Dioxide Level 20, Anion Gap 12, Blood Urea Nitrogen 20, Creatinine 1.18, Estimat Glomerular Filtration Rate 48, BUN/Creatinine Ratio 17, Glucose Level 133, Calcium Level 8.8, Corrected Calcium 9.5, Total Bilirubin 0.5, Aspartate Amino Transf (AST/SGOT) 24, Alanine Aminotransferase (ALT/SGPT) 10, Alkaline Phosphatase 92, Total Protein 5.6, Albumin 3.1 10/31/21 10:47: Glucometer 192 10/31/21 15:13: Glucometer 122 10/31/21 20:20: Glucometer 149 11/01/21 05:31: Glucometer 123 11/01/21 10:49: Glucometer 163 11/01/21 15:10: Glucometer 208 11/01/21 20:05: Glucometer 132 11/02/21 05:21: Glucometer 157 11/02/21 10:57: Glucometer 172 11/02/21 15:01: Glucometer 167 11/02/21 19:59: Glucometer 201 11/03/21 05:35: Glucometer 176 11/03/21 10:57: Glucometer 260 11/03/21 16:10: Glucometer 190 11/03/21 21:03: Glucometer 226 11/04/21 05:34: Glucometer 154 11/04/21 10:54: Glucometer 253 11/04/21 16:30: Glucometer 176 11/04/21 20:42: Glucometer 222 11/05/21 05:38: Glucometer 160 Discharge Home Medications: Active Scripts Active Lopressor (Metoprolol Tartrate) 50 Mg Tablet 50 Mg PO BID Glimepiride 1 Mg Tablet 1 Mg PO DAILY Lotrimin AF (Miconazole Nitrate) 2 % Powder 0 Gm TOP BID Bumetanide 1 Mg Tablet 1 Mg PO DAILY PRN 14 Days Hydrocodone-Acetamin 7.5-325 (Hydrocodone/Acetaminophen) 7.5 Mg-325 Mg Tablet 2 Each PO BID PRN Reported Ropinirole HCl 1 Mg Tablet 1 Mg PO HS Levemir Flextouch (Insulin Detemir) 100 Unit/Ml (3 Ml) Insuln.pen 10 Unit SQ DAILY W/BREAKFAST Gabapentin 600 Mg Tablet 600 Mg PO TID Flonase Allergy Relief (Fluticasone Propionate) 50 Mcg/Actuation [place].susp 2 [place] NSEACH HS Ferrous Sulfate 325 Mg (65 Mg Iron) Tablet 325 Mg PO HS Vitamin B-12 (Cyanocobalamin (Vitamin B-12)) 1,000 Mcg Tablet 1,000 Mcg PO DAILY Vitamin D3 (Cholecalciferol (Vitamin D3)) 50 Mcg (2000 Unit) Tablet 50 Mcg PO HS Zyrtec (Cetirizine HCl) 10 Mg Tablet 10 Mg PO DAILY Onglyza (Saxagliptin HCl) 5 Mg Tablet 5 Mg PO 1300 AFTER LUNCH Omeprazole 20 Mg Capsule.dr 20 Mg PO 1200,HS Atorvastatin Calcium 40 Mg Tablet 40 Mg PO HS Euthyrox (Levothyroxine Sodium) 75 Mcg Tablet 75 Mcg PO DAILY Instructions to patient/family Please see electronic discharge instructions given to patient. Diagnosis/Problems Diagnosis/Problems (1) Right humeral fracture Status: Acute (2) Debility, unspecified Status: Acute (3) Physical debility Status: Acute LINDSAY KRUSE DO November 05, 2021 09:32
[2021-11-05] MEDS: MICONAZOLE 2% POWDER (DESENEX AF) 90 GM TOP SCH (09:50)
[2021-11-05] MEDS: SENNA W/DOCUSATE (SENOKOT S) TABLET PO SCH (09:50)
[2021-11-05] MEDS: polyethylene glycoL POWDER 17 GM (MIRALAX) PACK PO SCH (09:50)
[2021-11-05 10:30] VITALS: BP 124/73
--- NOTE | 2021-11-07 13:50 | Therapy Team Discharge Summary ---
Therapy Discharge Summary Discharge Recommendations Date of Discharge November 05, 2021 at 10:40 Physical Therapy Patient came to rehab with right total shoulder. Upon evaluation patient performs rolling and supine <-> sit with mod assist, sit <-> stand and stand pivot transfer min assist, car transfer min assist, ambulated 5' with FINANCIAL DEVELOPER with min assist. Patient has been performing bed mobility and transfer training, balance and endurance training functional strengthening, stair training, gait training, and education. Patient has made good progress and has met all of her supervisor intermediates goals. Now, patient performs rolling and supine <-> sit with independence, sit <-> stand and transfers independent, car transfer independent, ambulates at least 150' with a quad cane with independence (including 50' with at least 2 turns of 90 degrees but needs CGA/SBA for 10' over an uneven surface), can go up and down 4 steps using 1 handrail with CGA/SBA, and can picket labor union an object from the floor using a venetian blind washer with setup. Patient has been discharged from this facility and will be discharged from PT at this time. Roll Left to Right (QC): 6 Sit to Lying (QC): 6 Lying to Sitting/Side of Bed(Q: 6 Sit to Stand (QC): 6 Chair/Ikq-wt-Iqkiu Xfer(QC): 6 Toilet Transfer (QC): 4 Car Transfer (QC): 6 Does the Patient Walk: Yes Mode of Locomotion: Walk Anticipated Mode of Locomotion: Walk Walk 10 feet (QC): 6 Walk 50 ft with 2 Turns(QC): 6 Walk 150 ft (QC): 6 Walking 10ft on uneven surface: 4 Distance: 5' Gait Assistive Device: Cane Large Base Quad Does the Pt Use a Wheelchair: No Wheel 50 ft with 2 turns (QC): 1 Wheel 150 ft (QC): 1 #of Steps: 4 1 Step (curb) (QC): 4 4 Steps (QC): 4 12 Steps (QC): 88 Balance Sitting Static: Fair Balance Sitting Dynamic: Fair Balance-Standing Static: Poor Picking up an Object (QC): 5 (venetian blind washer was retrieved for pt.) Occupational Therapy Decreased UE Strength, Impaired Coordination, Impaired I ADL's, Impaired Self- Care Skills, Restricted Funct UE ROM Eating (QC): 5 Oral Hygiene (QC): 5 Shower/Bathe Self (QC): 3 (min) Upper Body Dressing (QC): 3 (min) Lower Body Dressing (QC): 5 On/Off Footwear (QC): 5 Toileting Hygiene (QC): 6 PT Senior Living Goals Senior Living Goals PT Senior Living Goals Time Frame: Nov 17, 2021 Roll Left to Right (QC): 6 Sit to Lying (QC): 4 (CGA) Lying-Sitting on Side/Bed(QC): 4 (CGA) Sit to Stand (QC): 4 (SBA) Chair/[id number]-Vavqj Xfer(QC): 4 (SBA) Car Transfer (QC): 4 (SBA) Does the Patient Walk: Yes Walk 10 feet (QC): 4 (SBA) Walk 10ft-Uneven Surface(QC): 4 (SBA) Walk 50ft with 2 Turns (QC): 4 (SBA) Walk 150 ft (QC): 4 (SBA) Wheel 50 feet with 2 turns (QC: 9 1 Step (curb) (QC): 4 (CGA) 4 Steps (QC): 88 12 Steps (QC): 88 Picking up an Object (QC): 4 (SA with venetian blind washer) OT Senior Living Goals Senior Living Goals Time Frame: Nov 24, 2021 Eating (QC): 5 (met) Oral Hygiene (QC): 5 (met) Shower/Bathe Self (QC): 4 (not met, min a for passive shoulder ROM) Upper Body Dressing (QC): 4 (not met, min a for RUE/zipper) Lower Body Dressing (QC): 5 (met) On/Off Footwear (QC): 5 (met) Toileting Hygiene (QC): 6 (met) Toilet/Commode Transfer (QC): 4 (SBA) 1=Demonstrate adherence to instructed precautions during ADL tasks. 2=Patient will verbalize/demonstrate understanding of assistive devices/modifications for ADL. 3=Patient will improve strength/tolerance for activity to enable patient to perform ADL's. Speech Senior Living Goals [place] [employer] Goals The patient will demonstrate improve cognitive linguistic skills for safe discharge to the least restricted environment. MET TASHA PLAZA PT November 07, 2021 13:50
== END 2021-11-05 10:40 | disposition home health service (06) | DRG 561 ==
PROVIDERS: ADMIT Internal Medicine; ATTEND Internal Medicine
DX: S42.301D Unspecified fracture of shaft of humerus, right arm, subsequent encounter for fracture with routine healing (principal); R53.1 Weakness; I69.315 Cognitive social or emotional deficit following cerebral infarction; E11.22 Type 2 diabetes mellitus with diabetic chronic kidney disease; E11.649 Type 2 diabetes mellitus with hypoglycemia without coma; E11.40 Type 2 diabetes mellitus with diabetic neuropathy, unspecified; I12.9 Hypertensive chronic kidney disease with stage 1 through stage 4 chronic kidney disease, or unspecified chronic kidney disease; N18.9 Chronic kidney disease, unspecified; D64.9 Anemia, unspecified; G47.33 Obstructive sleep apnea (adult) (pediatric); K21.9 Gastro-esophageal reflux disease without esophagitis; I95.9 Hypotension, unspecified; M19.91 Primary osteoarthritis, unspecified site; F41.9 Anxiety disorder, unspecified; F32.A Depression, unspecified; Z79.4 Long term (current) use of insulin; Z79.84 Long term (current) use of oral hypoglycemic drugs; Z88.1 Allergy status to other antibiotic agents; W19.XXXD Unspecified fall, subsequent encounter
CPT/HCPCS: 36415; 71045; 80053; 82607; 82728; 82947; 83540; 83550; 83605; 83735; 84145; 85025; 86850; 86900; 86901; 86920

== ENCOUNTER 2022-02-13 13:29 | Outpatient (RCR) | payer MEDICARE, OTHER ==
[~2022-02-13 13:29] MED LIST changes: +CHOL200025 PO; +CYAN-41 PO; +FERR325T18 PO; +FLUT9.9S NSEACH; +GBPN600T PO; +GLIM1TAB4 PO; +HYDR-3817 PO; +INSU100I29 SQ; +METO-451 PO; +MICO90PO TOP; +POTA10TA PO; +ROPI1TAB PO
== END 2022-02-15 | disposition home or self-care (01) ==
PROVIDERS: ATTEND Orthopaedic Surgery
DX: Z96.611 Presence of right artificial shoulder joint (principal)

== ENCOUNTER 2022-03-16 13:27 | Outpatient (RCR) | payer MEDICARE, OTHER | END 2022-03-17 | disposition home or self-care (01) | PROVIDERS: ATTEND Orthopaedic Surgery | DX: Z96.611 Presence of right artificial shoulder joint (principal) ==

== ENCOUNTER 2022-04-13 15:16 | Outpatient (RCR) | payer MEDICARE, OTHER | END 2022-04-17 | disposition home or self-care (01) | PROVIDERS: ATTEND Orthopaedic Surgery | DX: M25.511 Pain in right shoulder (principal); I10 Essential (primary) hypertension; Z96.611 Presence of right artificial shoulder joint; Z91.81 History of falling ==

== ENCOUNTER 2022-05-17 13:43 | Outpatient (RCR) | payer MEDICARE, OTHER | END 2022-05-17 14:15 | disposition home or self-care (01) | PROVIDERS: ATTEND Orthopaedic Surgery | DX: Z96.611 Presence of right artificial shoulder joint (principal); I10 Essential (primary) hypertension ==

== ENCOUNTER 2022-08-11 10:14 | Outpatient (RCR) | payer MEDICARE, OTHER | END 2022-08-15 | disposition home or self-care (01) | PROVIDERS: ATTEND Orthopaedic Surgery | DX: Z96.611 Presence of right artificial shoulder joint (principal) ==

== ENCOUNTER 2022-08-30 12:52 | Outpatient (RCR) | payer MEDICARE, OTHER ==
[~2022-08-30 12:52] MED LIST changes: -INSU100I29 SQ; +INSU100I30 SQ
== END 2022-09-15 | disposition home or self-care (01) ==
PROVIDERS: ATTEND Orthopaedic Surgery
DX: Z96.611 Presence of right artificial shoulder joint (principal)

== ENCOUNTER 2022-10-12 13:03 | Outpatient (RCR) | payer MEDICARE, OTHER | END 2022-10-15 | disposition home or self-care (01) | PROVIDERS: ATTEND Orthopaedic Surgery | DX: M25.511 Pain in right shoulder (principal); Z96.611 Presence of right artificial shoulder joint ==

== ENCOUNTER 2022-11-14 14:15 | Outpatient (RCR) | payer MEDICARE, OTHER | END 2022-11-15 | disposition home or self-care (01) | PROVIDERS: ATTEND Orthopaedic Surgery | DX: M25.511 Pain in right shoulder (principal); Z96.611 Presence of right artificial shoulder joint ==

== ENCOUNTER 2022-12-01 14:02 | Outpatient (RCR) | payer MEDICARE, OTHER | END 2022-12-11 14:00 | disposition home or self-care (01) | PROVIDERS: ATTEND Orthopaedic Surgery | DX: Z96.611 Presence of right artificial shoulder joint (principal); I10 Essential (primary) hypertension ==

== ENCOUNTER → 2023-02-15 | Outpatient (RCR) | payer MEDICARE, OTHER ==
[~2023-02-15] MED LIST changes: +POTA-185 PO; -POTA10TA PO; -ROPI1TAB PO; +ROPI1TAB46 PO
== END | disposition home or self-care (01) ==
PROVIDERS: ATTEND Physician Assistant Medical
DX: I10 Essential (primary) hypertension (principal); Z96.611 Presence of right artificial shoulder joint

== ENCOUNTER 2023-02-28 11:23 | Outpatient (RCR) | payer MEDICARE, OTHER | END 2023-02-28 17:00 | disposition home or self-care (01) | PROVIDERS: ATTEND Physician Assistant Medical | DX: I10 Essential (primary) hypertension (principal); Z96.611 Presence of right artificial shoulder joint ==

== ENCOUNTER → 2023-05-23 | Outpatient (CLI) | payer MEDICARE, OTHER ==
[~2023-05-23] MED LIST changes: +GADOTERATE 0.5 MMOL/ML (CLARISCAN) 20 ML VIAL IV ONE
--- NOTE | 2023-05-23 15:39 | Diagnostic Imaging Report ---
PROCEDURE: MR imaging right lower extremity with and without contrast. TECHNIQUE: Multiplanar, multisequence pre and post contrast-enhanced MR imaging of the right lower extremity was accomplished. INDICATION: Type II diabetes. Osteomyelitis of the great toe. COMPARISON: None. FINDINGS: No acute fracture is seen in the right foot. There is heterogeneous T2 hyperintensity throughout the 3rd metatarsal shaft and base. There is associated enhancement with surrounding deep soft tissue edema and enhancement. No associated penetrating ulceration is appreciated. This may represent a stress reaction, without definite fracture seen. There is plantar subluxation at the great toe interphalangeal joint with severe degenerative changes at the joint. There is a small nonspecific effusion of the 1st MTP joint. There is marked dorsal subcutaneous edema in the foot with mild enhancement. There are degenerative changes in the midfoot. No rim-enhancing drainable fluid collection is seen. The flexor and extensor tendons appear to be intact. There is generalized atrophy in the foot musculature, which is likely neurogenic. IMPRESSION: 1. Bone marrow edema of the right 3rd metatarsal shaft and base with surrounding deep soft tissue edema, likely from stress reaction, although no fracture line is seen. Infection or neoplasm are felt less likely. 2. Mild subluxation with advanced degenerative changes at the great toe interphalangeal joint. 3. Marked nonspecific dorsal subcutaneous edema, may represent a cellulitis. No rim-enhancing fluid collection is seen. 4. Small 1st MTP joint effusion. Dictated by: Dictated on workstation # [id number]
== END ==
LOC: RAD 13:33
PROVIDERS: ATTEND Nurse Practitioner Family
DX: M19.071 Primary osteoarthritis, right ankle and foot (principal); M25.474 Effusion, right foot; E11.621 Type 2 diabetes mellitus with foot ulcer; L97.519 Non-pressure chronic ulcer of other part of right foot with unspecified severity
CPT/HCPCS: 73720